=== PATIENT | female | born 1955 ===

== ENCOUNTER 2020-01-23 14:04 | Outpatient (REF) | payer BC, SELFPAY | END 2020-01-23 14:05 | disposition home or self-care (01) | LOC: HO.LAB 14:04 | PROVIDERS: PCP Internal Medicine; Visit Provider Obstetrics & Gynecology | DX: B97.7 Papillomavirus as the cause of diseases classified elsewhere (principal) | CPT/HCPCS: 57454; 88305 ==

== ENCOUNTER → 2020-01-29 11:02 | Outpatient (BNVA) | payer BC, SELFPAY | PROVIDERS: PCP Internal Medicine; Referring Provider Internal Medicine; Visit Provider Obstetrics & Gynecology | DX: Z76.89 Persons encountering health services in other specified circumstances (principal) ==

== ENCOUNTER → 2020-02-14 10:06 | Outpatient (BNVA) | payer BC, SELFPAY | PROVIDERS: Visit Provider Obstetrics & Gynecology | DX: Z76.89 Persons encountering health services in other specified circumstances (principal) ==

== ENCOUNTER 2020-02-16 12:54 | Outpatient (REF) | payer BC, SELFPAY ==
[2020-02-16 13:01] VITALS: BP 157/78; PULSE 71; RESP 16; TEMP 36.4; O2SAT 97
[2020-02-16 13:02] VITALS: BMI 27.4
--- NOTE | 2020-02-16 13:59 | P.HPSUR_ITS ---
Pre-Procedural Eval Section B Chief Complaint: Persistent GREGOR 1 s/p LEEP CONE in 2017 Allergies: Allergies Allergy/AdvReac Type Severity Reaction Status Date / Time lactose [Lactose] Allergy Mild DIARRHEA Unverified 02/14/20 10:15 morphine [Morphine] Allergy Mild HIVES, Unverified 02/14/20 10:15 itching ciprofloxacin [Cipro] Allergy Unknown eye Verified 02/14/20 10:15 swelling, itching Latex Exam Gloves Allergy Unknown itching Uncoded 02/14/20 10:15 NUTS Allergy Unknown itching Uncoded 02/14/20 10:15 Plan Patient has been examined cervix is flushed with vagina. After multiple attempts and careful inspection it was apparent that the visualization is suboptimal so the procedure was aborted. At this point offered the patient either to schedule LEEP cone in the operating room 100 anesthesia versus refer to [facility] for further treatment. Patient decided to be referred to [facility].
== END 2020-02-16 12:55 | disposition home or self-care (01) ==
LOC: HO.MS 12:54
PROVIDERS: PCP Internal Medicine; Visit Provider Obstetrics & Gynecology
PROC: 0UBC7ZZ Excision of Cervix, Via Natural or Artificial Opening (ICD-10-PCS; CPT 57522; principal; 2020-02-16 13:00)
DX: N87.0 Mild cervical dysplasia (principal); F32.9 Major depressive disorder, single episode, unspecified; Z85.3 Personal history of malignant neoplasm of breast; E78.5 Hyperlipidemia, unspecified; Z91.040 Latex allergy status; Z88.8 Allergy status to other drugs, medicaments and biological substances; Z88.1 Allergy status to other antibiotic agents
CPT/HCPCS: 57522

== ENCOUNTER 2020-03-07 10:43 | Outpatient (REF) | payer BC, SELFPAY | END 2020-03-07 10:44 | disposition home or self-care (01) | LOC: HO.LAB 10:43 | PROVIDERS: PCP Internal Medicine; Visit Provider Internal Medicine | DX: Z20.828 Contact with and (suspected) exposure to other viral communicable diseases (principal) | CPT/HCPCS: C9803; U0003 ==

== ENCOUNTER 2020-04-17 11:45 | Outpatient (REF) | payer BC, SELFPAY ==
--- NOTE | 2020-04-17 11:57 | XR_ITS ---
EXAMINATION: XR ELBOW, RIGHT CLINICAL INFORMATION: Pain COMPARISON: None TECHNIQUE: AP, lateral, and oblique views of the right elbow. FINDINGS: The bones and soft tissues are normal. No fracture or joint effusion. Alignment is anatomic. Joint spaces are maintained. XR/XR elbow RT min 3V IMPRESSION: Normal right elbow.
[2020-04-17 14:17] LABS: Hematocrit 41.9 % (37-47); Hemoglobin 13.6 g/dl (12.0-16.0); Mean Corpuscular HGB Conc 32.5 g/dl (31.0-35.0); Mean Corpuscular Hemoglobin 27.3 pg (27.0-33.0); Mean Platelet Volume 10.5 fL (9.4-12.3); Platelet Count 260 X10*3/uL (160-400); Red Blood Count 4.99 X10*6/uL (4.20-5.50); Red Cell Distribution Width 12.8 % (11.0-16.0); White Blood Count 6.7 X10*3/uL (4.8-10.8)
[2020-04-17 14:48] LABS: Anion Gap 14 (12-20); Blood Urea Nitrogen 11 mg/dL (9-16); C Reactive Protein 1.07 mg/dL (< or = 0.50); Calcium 9.2 mg/dL (8.4-10.2); Carbon Dioxide 27 mmol/L (22-29); Chloride 103 mmol/L (96-108); Estimated Glomerular Filt Rate > 60; Glucose Random 104 mg/dL (60-115); Potassium 4.3 mmol/l (3.3-5.1); Sodium 140 mmol/L (135-145)
[2020-04-17 14:54] LABS: TSH reflex Free T4 2.84 mIU/mL (0.32-4.0)
== END 2020-04-17 11:46 | disposition home or self-care (01) ==
LOC: HO.HMGCLDS 11:45
PROVIDERS: Absent Provider Internal Medicine; PCP Internal Medicine; Visit Provider Internal Medicine
DX: M25.521 Pain in right elbow (principal); T78.40XA Allergy, unspecified, initial encounter; K13.0 Diseases of lips
CPT/HCPCS: 36415; 73080; 80048; 84443; 85027; 86140

== ENCOUNTER 2020-12-25 14:08 | Outpatient (REF) | payer BC, MEDICARE, SELFPAY ==
[2020-12-25 17:14] LABS: TSH reflex Free T4 4.25 uIU/mL (0.32-4.0)
[2020-12-25 17:50] LABS: Free T4 (Free Thyroxine) 0.94 ng/dL (0.71-1.85)
== END 2020-12-25 14:09 | disposition home or self-care (01) ==
LOC: HO.HMGCLDS 14:08
PROVIDERS: PCP Internal Medicine; Visit Provider Internal Medicine
DX: E03.8 Other specified hypothyroidism (principal)
CPT/HCPCS: 36415; 84439; 84443

== ENCOUNTER 2022-03-27 09:42 | Outpatient (REF) | payer BC, MEDICARE, SELFPAY ==
[2022-03-27 11:17] LABS: MANUAL DIFF FLAG NO
[2022-03-27 11:25] LABS: Basophils Absolute Auto 0.2 X10*3/uL (0.0-0.2); Eosinophils Absolute Auto 0.3 X10*3/uL (0.0-0.4); Eosinophils Percent Auto 4.6 % (0-4); Hematocrit 43.3 % (37.0-47.0); Imm Gran Abs Auto 0.03 X10*3/uL (0.00-0.03); Imm Gran Pct Auto 0.4 % (0.0-0.4); Lymphocytes Absolute Auto 1.9 X10*3/uL (1.2-4.9); Lymphocytes Percent Auto 25.9 % (20-40); Mean Corpuscular HGB Conc 32.3 g/dl (31.0-35.0); Mean Corpuscular Hemoglobin 26.5 pg (27.0-33.0); Mean Platelet Volume 10.3 fL (9.4-12.3); Monocytes Absolute Auto 0.5 X10*3/uL (0.1-1.2); Monocytes Percent Auto 6.7 % (2-11); Neutrophils Absolute Auto 4.4 x10*3/uL (2.0-8.3); Neutrophils Percent Auto 60.4 % (45-73); Platelet Count 275 X10*3/uL (160-400); Red Blood Count 5.28 X10*6/uL (4.20-5.50); Red Cell Distribution Width 12.5 % (11.0-16.0); White Blood Count 7.3 X10*3/uL (4.8-10.8)
[2022-03-27 12:18] LABS: Alanine Aminotransferase 16 U/L (0-31); Albumin Level 4.3 g/dL (3.5-5.0); Alkaline Phosphatase 86 U/L (39-117); Anion Gap 11 (12-20); Aspartate Amino Transferase 18 U/L (5-31); Bilirubin Total 0.7 mg/dL (0.0-1.0); Blood Urea Nitrogen 10 mg/dL (9-16); Calcium 9.6 mg/dL (8.4-10.2); Carbon Dioxide 31 mmol/L (22-29); Chloride 105 mmol/L (96-108); Cholesterol 236 mg/dL; Estimated Glomerular Filt Rate > 60; Glucose Fasting 98 mg/dL (60-99); HDL Cholesterol 46 mg/dL; LDL Cholesterol Calculated 165 mg/dl; Potassium 4.1 mmol/L (3.3-5.1); Sodium 143 mmol/L (135-145); Total Protein 7.2 g/dL (6.5-8.0); Triglycerides 128 mg/dL
[2022-03-27 12:39] LABS: TSH reflex Free T4 3.75 uIU/mL (0.32-4.0)
== END 2022-03-27 09:43 | disposition home or self-care (01) ==
LOC: HO.HMGCLDS 09:42
PROVIDERS: PCP Internal Medicine; Visit Provider Internal Medicine
DX: Z00.01 Encounter for general adult medical examination with abnormal findings (principal); F43.9 Reaction to severe stress, unspecified; E03.8 Other specified hypothyroidism
CPT/HCPCS: 36415; 80053; 80061; 84443; 85025

== ENCOUNTER 2022-05-13 10:25 | Emergency (ER) | payer BC, MEDICARE, SELFPAY ==
--- NOTE | 2022-05-13 10:29 | ECG_ITS ---
Test Reason : cp Blood Pressure : / mmHG Vent. Rate : 076 BPM Atrial Rate : 076 BPM P-R Int : 162 ms QRS Dur : 076 ms QT Int : 380 ms P-R-T Axes : 047 -03 023 degrees QTc Int : 427 ms Normal sinus rhythm Minimal voltage criteria for LVH, may be normal variant ( R in aVL ) Borderline ECG When compared with ECG of 13-FEB-2005 14:53, No significant change was found Referred By: Generic ED Physician Electronically Signed By:Alfred Brian
[2022-05-13 10:38] VITALS: BP 141/78; PULSE 72; RESP 18; TEMP 36.8; O2SAT 99; BMI 27.4
[2022-05-13 10:54] LABS: MANUAL DIFF FLAG NO
[2022-05-13 10:59] LABS: Basophils Absolute Auto 0.1 X10*3/uL (0.0-0.2); Basophils Percent Auto 1.8 % (0-2); Eosinophils Absolute Auto 0.2 X10*3/uL (0.0-0.4); Eosinophils Percent Auto 2.4 % (0-4); Hemoglobin 13.9 g/dl (12.0-16.0); Imm Gran Abs Auto 0.03 X10*3/uL (0.00-0.03); Imm Gran Pct Auto 0.4 % (0.0-0.4); Lymphocytes Absolute Auto 1.7 X10*3/uL (1.2-4.9); Mean Corpuscular HGB Conc 33.1 g/dl (31.0-35.0); Mean Corpuscular Hemoglobin 27.1 pg (27.0-33.0); Mean Corpuscular Volume 81.9 fL (80.0-98.0); Mean Platelet Volume 9.8 fL (9.4-12.3); Monocytes Absolute Auto 0.5 X10*3/uL (0.1-1.2); Monocytes Percent Auto 6.8 % (2-11); Neutrophils Absolute Auto 4.6 x10*3/uL (2.0-8.3); Neutrophils Percent Auto 64.6 % (45-73); Platelet Count 272 X10*3/uL (160-400); Red Blood Count 5.13 X10*6/uL (4.20-5.50); Red Cell Distribution Width 12.5 % (11.0-16.0); White Blood Count 7.2 X10*3/uL (4.8-10.8)
[2022-05-13 11:12] LABS: Anion Gap 14 (12-20); Blood Urea Nitrogen 10 mg/dL (9-16); Calcium 9.5 mg/dL (8.4-10.2); Carbon Dioxide 27 mmol/L (22-29); Chloride 104 mmol/L (96-108); Creatinine Clr Calc Pharmacy 63.3; Estimated Glomerular Filt Rate > 60; Glucose Random 108 mg/dL (60-115); Potassium 4.3 mmol/L (3.3-5.1); Sodium 141 mmol/L (135-145)
[2022-05-13 11:15] LABS: Troponin-I High Sensitivity < 3.5 ng/L (<3.5-17.0)
--- NOTE | 2022-05-13 12:38 | ED_ITS ---
HPI - Chest Pain General Chief Complaint: Chest Pain Stated Complaint: chest pain , L side body pain Time Seen by Provider: 05/13/22 12:37 Source: patient Mode of arrival: ambulatory Limitations: no limitations History of Present Illness HPI narrative: 67 yo female pmHx HLD, hypothyroidism, depression c/o left sided chest pain and LUE paresthesia since last night. Chest pain is intermittent, non-radiating, not reproducible with palpation, and sharp/shooting in nature. Upper scapula pain is also same quality as chest pain. Pt reports shooting numbness/tingling from medial epicondyle of the elbow traveling down to the second, third, and fourth finger of the left hand. 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 She denies other trauma directly to the area, prior occurrence, or associated rashes. No associated SOB, nausea, diaphoresis. Currently has no chest pain and reports pain is in the lower portion of the left arm, shooting in nature. MD complaint: chest pain and other (elbow/wrist/hand paresthesia, left subscapular pain) Onset (ago): day(s) (1) Timing of current episode: episodic Prior episodes: No Onset: during rest Pain location: left chest and other (left medial epicondyle) Pain radiation: left shoulder and other (left wrist) Quality: sharp and shooting Relieving factors: nothing Exacerbating factors: nothing Treatment prior to arrival: none Risk Factors Coronary artery disease risk factors: hyperlipidemia Related Data Previous Rx's Medication Instructions Recorded naproxen sodium 550 mg tablet 550 mg PO Q12H PRN pain 30 days 10/22/21 #60 tabs levothyroxine 50 mcg tablet 50 mcg PO DAILY 90 days #90 tabs 04/22/22 cyclobenzaprine 10 mg tablet 10 mg PO TID PRN muscle spasm #10 05/13/22 tabs prednisone 20 mg tablet 40 mg PO DAILY #10 tabs 05/13/22 Allergies Allergy/AdvReac Type Severity Reaction Status Date / Time lactose [Lactose] Allergy Mild DIARRHEA Verified 05/13/22 10:43 morphine [Morphine] Allergy Mild HIVES, Verified 05/13/22 10:43 itching ciprofloxacin [Cipro] Allergy Unknown eye Verified 05/13/22 10:43 swelling, itching Latex Exam Gloves Allergy Unknown itching Uncoded 10/22/21 14:30 NUTS Allergy Unknown itching Uncoded 10/22/21 14:30 Review of Systems Review of Systems: Yes all other systems are reviewed and are negative REPLACED BY [facility] Past Medical History Medical History Depression History of breast cancer Hyperlipemia Hypothyroidism Surgical History History of appendectomy Family History Family History Other Mental health disorder Substance use disorder Social History Social History Housing: Condominium Alcohol intake: never Patient Tobacco Use Status: Never used Tobacco e-Cigarette/Vaping Use: Never Used Advance Directives: Yes Advance Directives Information Provided: No Advance Directives on File: No Current occupational status: employed Sexual orientation: Straight/Heterosexual Gender identity: Female Cognitive needs: No Hearing needs: No Vision needs: No Physical Exam Vital Signs: Vital Signs: Last Vital Signs Temp 98.2 F 05/13/22 10:38 Pulse 72 05/13/22 10:38 Resp 18 05/13/22 10:38 BP 141/78 H 05/13/22 10:38 Pulse Ox 99 05/13/22 10:38 O2 Del Method 05/13/22 10:38 BMI result Body Mass Index 27.4 Appearance: Alert. Oriented X3. No acute distress. Eyes: Pupils equal, round and reactive to light. ENT: Pharynx normal. Neck: Normal inspection. Neck supple. CVS: Normal heart rate and rhythm. Pulses normal. No anterior chest wall tenderness. Respiratory: No respiratory distress. Breath sounds normal. Abdomen: Soft and nontender. +BS x4 Skin: Skin warm and dry. Normal skin color. Normal skin turgor. No rashes. Extremities: No lower extremity edema. Pain to medial epicondyle upon palpation. Full ROM to all extremities. +CMS Neuro: Oriented X 3. No motor deficit. No sensory deficit. Course Course Course Narrative: 67 yo female here with chest, back and LUE pains. Exam and clinical presentation are not consistent with ACS. EKG without ischemic changes. Labs pending. Chest pain free at this time. Reevaluation(s) Reevaluation #1: - Labs unremarkable. -Discussed negative troponin and likelihood of musculoskeletal cause. Pt agreeable to discharge and f/u with orthopedics as well as prescription for short course of steroids and muscle relaxant. Time: 13:00 Medical Decision Making Medical Decision Making [facility] Narrative: 67 yo female pmHx HLD, hypothyroidism, depression c/o left sided chest pain and LUE paresthesia since last night. Based on patient presentation symptomatology, differential diagnosis is most likely muscle strain with cubital tunnel syndrome. Other differential diagnoses include myocardial infarction, cervical radiculopathy, and shingles. Myocardial infarction r/o with negative troponin. Cervical radiculopathy unlikely secondary to point tenderness to medial aspect of epicondyle with radiation to second, third, and fourth digit in combination with lack of shoulder involvement. Shingles also remains lower on the different ial d/t lack of rash involvement and multiple dermatomes affected. Differential Diagnosis Differential Diagnoses: The differential diagnosis associated with the presentation includes Differential diagnosis is most likely muscle strain with cubital tunnel syndrome. Other differential diagnoses include myocardial infarction, cervical radiculopathy, and shingles. Lab Data [facility] Lab Attestation statement: I reviewed the patient's lab results. Troponin negative (<3.5), CBC and BMP unremarkable. No metabolic derangements appreciated. 05/13/22 10:49 05/13/22 10:49 Labs: Lab Results 05/13/22 05/13/22 05/13/22 Range/Units 10:49 10:49 10:49 WBC 7.2 (4.8-10.8) X10*3/uL RBC 5.13 (4.20-5.50) X10*6/uL Hgb 13.9 (12.0-16.0) g/dl Hct 42.0 (37.0-47.0) % MCV 81.9 (80.0-98.0) fL MCH 27.1 (27.0-33.0) pg MCHC 33.1 (31.0-35.0) g/dl RDW 12.5 (11.0-16.0) % Plt Count 272 (160-400) X10*3/uL MPV 9.8 (9.4-12.3) fL Immature Gran % (Auto) 0.4 (0.0-0.4) % Neut % (Auto) 64.6 (45-73) % Lymph % (Auto) 24.0 (20-40) % [place] % (Auto) 6.8 (2-11) % Eos % (Auto) 2.4 (0-4) % Baso % (Auto) 1.8 (0-2) % Lymph # (Auto) 1.7 (1.2-4.9) X10*3/uL [place] # (Auto) 0.5 (0.1-1.2) X10*3/uL Eos # (Auto) 0.2 (0.0-0.4) X10*3/uL Baso # (Auto) 0.1 (0.0-0.2) X10*3/uL Abs Immat Gran (auto) 0.03 (0.00-0.03) X10*3/uL Absolute Neuts (auto) 4.6 (2.0-8.3) x10*3/uL Absolute Nucleated RBC 0.000 (0.0-0.012) X10*3/uL Nucleated RBC % (auto) 0.0 (0.0-0.2) /100WBC Sodium 141 (135-145) mmol/L Potassium 4.3 (3.3-5.1) mmol/L Chloride 104 (96-108) mmol/L Carbon Dioxide 27 (22-29) mmol/L Anion Gap 14 (12-20) BUN 10 (9-16) mg/dL Creatinine 0.83 (0.5-1.4) mg/dL Estim Creat Clear Calc 63.3 Estimated GFR > 60 Random Glucose 108 (60-115) mg/dL Calcium 9.5 (8.4-10.2) mg/dL Troponin I High Sens < 3.5 (<3.5-17.0) ng/L Independent Interpretation I performed an independent interpretation of an: EKG Interpretation: Normal EKG NSR with rate of 76 [place] normal at 162 ms QRS normal at 76 ms QTc normal at 427 ms External Record Review External record reviewed: Office record and Outpatient record Prescription Management I considered prescription management with: Pain Medication Critical Care Time Critical Care Time Critical Care Time: No Discharge Plan Discharge Clinical Impression: Atypical chest pain, Cubital tunnel syndrome Patient Disposition: Home, Self-Care Instructions: Cubital Tunnel Syndrome (ED), Noncardiac Chest Pain (ED) Additional Instructions: Labwork today was reassuring that you are not having a heart attack. It is likely that your chest and back pain are from a pulled muscle from lifting at work. The numbness and tingling you are feeling is likely due to the repetitive motion at your job. You are being given a referral to follow up with orthopedics and should also follow up with your Primary care provider. I have prescribed a short course of steroids and a muscle relaxer. Please take as prescribed. If you start to experience chest pain that feels different or worse, shortness of breath, or other concerning symptoms please return. Prescriptions: New cyclobenzaprine 10 mg tablet 10 mg PO TID PRN (Reason: muscle spasm) Qty: 10 0RF prednisone 20 mg tablet 40 mg PO DAILY Qty: 10 0RF No Action naproxen sodium 550 mg tablet 550 mg PO Q12H PRN (Reason: pain) 30 Days Qty: 60 0RF levothyroxine 50 mcg tablet 50 mcg PO DAILY 90 Days Qty: 90 1RF Referrals: [facility] [Provider Group] Dexter Garcia MD [Primary Care Provider] - Stand Alone Forms: Work/School Release
== END 2022-05-13 14:16 | disposition home or self-care (01) ==
PROVIDERS: Emergency Provider Student in an Organized Health Care Education/Training Program; PCP Internal Medicine
DX: R07.89 Other chest pain (principal); G56.22 Lesion of ulnar nerve, left upper limb; E78.5 Hyperlipidemia, unspecified; Z79.899 Other long term (current) drug therapy
CPT/HCPCS: 36415; 80048; 84484; 85025; 93005; 99283

== ENCOUNTER 2022-05-27 12:23 | Outpatient (REF) | payer BC, MEDICARE, SELFPAY ==
--- NOTE | ~2022-05-27 | XR_ITS ---
EXAMINATION: XR HAND, LEFT CLINICAL INFORMATION: Pain. COMPARISON: None. TECHNIQUE: PA, lateral, and oblique views of the left hand. FINDINGS: There is loss of PIP and DIP joint space with periarticular spurring DIP joints 4th and 5th digits. No bony erosive changes. No loose bodies. No joint effusion. The soft tissues are normal. XR/XR hand LT min 3V IMPRESSION: Degenerative arthritic changes DIP joints. No visible acute fracture or dislocation seen.
== END 2022-05-27 12:24 | disposition home or self-care (01) ==
LOC: HO.HOSX 12:23
PROVIDERS: Visit Provider Physician Assistant
DX: M65.342 Trigger finger, left ring finger (principal)
CPT/HCPCS: 20550; 73130; 99202; J1100

== ENCOUNTER 2022-10-20 12:12 | Outpatient (AMB) | payer BC, MEDICARE, SELFPAY ==
[2022-10-20 12:18] VITALS: BP 148/80; PULSE 84; O2SAT 98; BMI 27.7
--- NOTE | 2022-10-20 12:18 | A.OFFPC_ITS ---
Vital Signs 10/20/22 12:18 Height 5 ft 4 in Weight 161 lb 4 oz BMI 27.7 BP 148/80 H Blood Pressure Location Rt brachial Position Sitting Pulse 84 Pulse Source Pulse Oximeter Pulse Oximetry (%) 98 Oxygen Delivery Method Room Air Intake Visit Reasons: PE Allergies lactose [Lactose] Allergy (Mild, Verified 10/20/22 12:19) DIARRHEA morphine [Morphine] Allergy (Mild, Verified 10/20/22 12:19) HIVES, itching ciprofloxacin [Cipro] Allergy (Unknown, Verified 10/20/22 12:19) eye swelling, itching Latex Exam Gloves Allergy (Unknown, Uncoded 05/27/22 13:50) itching NUTS Allergy (Unknown, Uncoded 05/27/22 13:50) itching Medication List - Last Reconciled 10/20/22 by Dexter Garcia MD levothyroxine 50 mcg PO DAILY 90 days Tobacco use date assessed: 10/20/22 Fall risk assessment: No Falls in past year Last assessed Fall Risk: 10/20/22 Dental Screening Dental Screen Date: 10/20/22 Did you have a dental visit in the last 12 months?: No Did you have a dental problem in the last 6 months where you did not have access to dental care?: No Was dental information given to patient?: No HPI PE HPI Details 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 She has been having lower back pain left side radiating to left leg for a while. Patient says that she has been telling her work that she cannot lift heavy will sugars but no one is listening. I have provided her letter stating no more lifting more than 30 lb Patient will have x-ray of her lumbar spine, she is also complaining of pain right shoulder she will have x-ray of shoulder as well She has tried naproxen and cyclobenzaprine which did not help her. I have ordered physical therapy for the patient she will return in 6-8 weeks after finishing physical therapy for re-evaluation. This is her physical exam appointment On physical examination her back exam is benign and so is her neuro exam. With the medication patient is taking his levothyroxine 50 mcg she recently had labs reviewed with the patient The pressure is slightly elevated at 148 systolic we will continue to monitor. Her mammogram was April of this year She need a new OBGYN and Colonoscopy we are not sure when it was patient does not remember I have sent a referral to Gastroenterology for that. Her LDL is elevated at 165 patient is declining to take any cholesterol-lowering medications. 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 How often do you have a drink containing alcohol?: Never 3. How often do you have six or more drinks on one occasion?: Never Total Score: 0 Score Reviewed/Action Taken: Yes LADY-7 AMB Questionnaire LADY-7 Date LADY - 7 assessed: 04/22/22 Source: Developed by Drs. Charli Webster, Karla Poole, Ed Quintero and colleagues, with an educational jeni from [employer]. Review of Systems Const Denies chills, Denies fever(s) and Denies headache(s) Eyes Denies blurry vision ENT Denies headache(s), Denies nasal discharge, Denies nasal obstruction, Denies odynophagia and Denies sinus pain Card Denies chest pain at rest and Denies chest pain with activity Resp Denies cough and Denies hemoptysis GI Denies diarrhea, Denies odynophagia, Denies vomiting and Denies hematemesis Reports as per HPI Musc Denies abnormal gait Skin/Breast Reports as per HPI Neuro Denies Neuro-related abnormal movements, Denies Abnormal speech present, Denies abnormal gait, Denies headache(s) and Denies Sensory deficit (Neuro) Psych Denies mood swings and Denies paranoia Endo Reports as per HPI Johan/Lymph Reports as per HPI Aller/Immun Reports as per HPI Physical exam (Primary Care) Vital Signs: Last Vital Signs Pulse 84 10/20/22 12:18 BP 148/80 H 10/20/22 12:18 Pulse Ox 98 10/20/22 12:18 Oxygen Delivery Method Room Air 10/20/22 12:18 BMI result Body Mass Index 27.7 Tobacco/Smoking Status: Tobacco use Status Tobacco use date assessed 10/20/22 10/20/22 12:19 Patient Tobacco Use Status Never used Tobacco 10/20/22 12:19 e-Cigarette/Vaping Use Never Used 10/20/22 12:19 Thrive Assessment: Date of Thrive Assessment Date Thrive assessed 04/22/22 10/20/22 12:19 Const General: cooperative, comfortable and no acute distress Orientation/consciousness: patient oriented x3 HENMT Head: Yes normocephalic and Yes atraumatic Eyes General: appearance normal, both eyes and all related structures Pupils: Equal, round and reactive pupils present EOM: EOMs intact bilaterally Neck Neck: Yes supple and No lymphadenopathy Thyroid: Thyroid normal Lymphatic: no lymphadenopathy noted Chest Breast/axilla palpation: normal palpation of the breasts Resp Effort & Inspection: normal respiratory effort and able to speak in complete sentences Auscultation: clear to auscultation bilaterally Cardio Heart sounds: S1 normal heart sound present and S2 normal heart sound present GI Palpation (GI): Soft to palpation and nontender Auscultation: normal bowel sounds General: Yes no CVA tenderness Back/Spine/Pelvis Back: no CVA tenderness Skin General skin exam: elasticity normal and turgor normal Neuro General: patient oriented x3 and gait normal Cranial nerves: Yes Equal, round and reactive pupils present Speech: No Abnormal speech present Sensory Exam: No Sensory deficit (Neuro) Coordination: tandem gait normal and Romberg test negative Extrem General: Yes normal exam except as noted and No edema Assessment and Plan Assessment & Plan (1) Encounter for general adult medical examination with abnormal findings: Code(s): Z00.01 - Encounter for general adult medical examination with abnormal findings (2) Other specified hypothyroidism: Code(s): E03.8 - Other specified hypothyroidism (3) Lumbar pain with radiation down left leg: Code(s): M54.50 - Low back pain, unspecified; M79.605 - Pain in left leg (4) Shoulder pain, right: Code(s): M25.511 - Pain in right shoulder (5) Colon cancer screening: Code(s): Z12.11 - Encounter for screening for malignant neoplasm of colon (6) Blurring of vision: Code(s): H53.8 - Other visual disturbances Plan 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 She has been having lower back pain left side radiating to left leg for a while. Patient says that she has been telling her work that she cannot lift heavy will sugars but no one is listening. I have provided her letter stating no more lifting more than 30 lb Patient will have x-ray of her lumbar spine, she is also complaining of pain right shoulder she will have x-ray of shoulder as well She has tried naproxen and cyclobenzaprine which did not help her. I have ordered physical therapy for the patient she will return in 6-8 weeks after finishing physical therapy for re-evaluation. This is her physical exam appointment With the medication patient is taking his levothyroxine 50 mcg she recently had labs reviewed with the patient The pressure is slightly elevated at 148 systolic we will continue to monitor. Her mammogram was April of this year She need a new OBGYN and Colonoscopy we are not sure when it was patient does not remember I have sent a referral to Gastroenterology for that. Her LDL is elevated at 165 patient is declining to take any cholesterol-lowering medications. 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
== END 2022-10-20 13:48 | disposition home or self-care (01) ==
PROVIDERS: PCP Internal Medicine; Visit Provider Internal Medicine
DX: Z00.01 Encounter for general adult medical examination with abnormal findings (principal); E03.8 Other specified hypothyroidism; M54.50 Low back pain, unspecified; M79.605 Pain in left leg; M25.511 Pain in right shoulder; Z12.11 Encounter for screening for malignant neoplasm of colon; H53.8 Other visual disturbances
CPT/HCPCS: 99397

== ENCOUNTER 2022-10-20 12:48 | Outpatient (REF) | payer BC, MEDICARE, SELFPAY ==
--- NOTE | ~2022-10-20 | XR_ITS ---
EXAMINATION: XR LUMBAR SPINE XR SHOULDER, RIGHT CLINICAL INDICATION: Pain in right shoulder and low back pain. COMPARISON: None available. TECHNIQUE: Lumbar spine 3 views. Right shoulder 4 views. FINDINGS: RIGHT SHOULDER: There is mild reduction of glenohumeral and AC joint space with inferior acromion spurring. No acute fracture, lytic or sclerotic process seen. No soft tissue calcification. LUMBAR SPINE: There is maintained lumbar lordosis. There is loss of L5-S1 disc height. The rest of the disc heights are maintained. The vertebral heights and alignment is normal. There is endplate spondylosis L5-S1 and L4-L5 disc level. Moderate bilateral L4-L5 facet joint arthropathy is noted. No visible acute fracture, dislocation or lytic process seen. XR/XR lumbar spine 2-3V IMPRESSION: Mild degenerative changes glenohumeral and AC joint space with a large inferior acromial spur, likely impinging right rotator cuff. Correlate with MRI if clinically indicated. Degenerative disc changes with endplate sclerosis and spondylosis L5-S1 disc level.
--- NOTE | ~2022-10-20 | XR_ITS ---
EXAMINATION: XR LUMBAR SPINE XR SHOULDER, RIGHT CLINICAL INDICATION: Pain in right shoulder and low back pain. COMPARISON: None available. TECHNIQUE: Lumbar spine 3 views. Right shoulder 4 views. FINDINGS: RIGHT SHOULDER: There is mild reduction of glenohumeral and AC joint space with inferior acromion spurring. No acute fracture, lytic or sclerotic process seen. No soft tissue calcification. LUMBAR SPINE: There is maintained lumbar lordosis. There is loss of L5-S1 disc height. The rest of the disc heights are maintained. The vertebral heights and alignment is normal. There is endplate spondylosis L5-S1 and L4-L5 disc level. Moderate bilateral L4-L5 facet joint arthropathy is noted. No visible acute fracture, dislocation or lytic process seen. XR/XR shoulder RT min 2V IMPRESSION: Mild degenerative changes glenohumeral and AC joint space with a large inferior acromial spur, likely impinging right rotator cuff. Correlate with MRI if clinically indicated. Degenerative disc changes with endplate sclerosis and spondylosis L5-S1 disc level.
== END 2022-10-20 12:49 | disposition home or self-care (01) ==
LOC: HO.HMGCX 12:48
PROVIDERS: PCP Internal Medicine; Visit Provider Internal Medicine
DX: M54.50 Low back pain, unspecified (principal); M79.605 Pain in left leg; M25.511 Pain in right shoulder
CPT/HCPCS: 72100; 73030

== ENCOUNTER 2022-10-27 15:23 | Outpatient (AMB) | payer BC, MEDICARE, SELFPAY ==
[2022-10-27 15:21] VITALS: BP 120/70; PULSE 93; O2SAT 97; BMI 27.8
--- NOTE | 2022-10-27 15:21 | MHC.PC.OV ---
Vital Signs 10/27/22 15:21 Height 5 ft 4 in Weight 162 lb BMI 27.8 BP 120/70 Blood Pressure Location Lt brachial Position Sitting Pulse 93 Pulse Source Pulse Oximeter Pulse Oximetry (%) 97 Oxygen Delivery Method Room Air Intake Visit Reasons: Follow UP X-ray Results ~ Work Letter Allergies lactose [Lactose] Allergy (Mild, Verified 10/27/22 15:21) DIARRHEA morphine [Morphine] Allergy (Mild, Verified 10/27/22 15:21) HIVES, itching ciprofloxacin [Cipro] Allergy (Unknown, Verified 10/27/22 15:21) eye swelling, itching Latex Exam Gloves Allergy (Unknown, Uncoded 05/27/22 13:50) itching NUTS Allergy (Unknown, Uncoded 05/27/22 13:50) itching Medication List - Last Reconciled 10/27/22 by Dexter Garcia MD levothyroxine 50 mcg PO DAILY 90 days Tobacco use date assessed: 10/27/22 Fall risk assessment: No Falls in past year Last assessed Fall Risk: 10/27/22 Dental Screening Dental Screen Date: 10/27/22 Did you have a dental visit in the last 12 months?: Yes Did you have a dental problem in the last 6 months where you did not have access to dental care?: No Was dental information given to patient?: No HPI Follow UP X-ray Results ~ Work Letter HPI Details Patient came in today to have a follow-up after having x-rays she was complaining of pain in her shoulder right side Her x-ray shows degenerated changes glenohumeral and AC joint space with large inferior acromial spur likely impinging right rotator cuff I have placed a referral for her to be evaluated by Orthopedic She continued to have lower lumbar pain radiating to left leg with paresthesias going all the way down to her foot at time patient says that her leg feels heavy X-ray of lumbar spine show spondylosis L5-S1 disc level. I have ordered MRI of lumbar spine to further evaluate Meanwhile letter given to patient stating no pulling pushing or working with wheelchairs until cleared. 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 How often do you have a drink containing alcohol?: Never 3. How often do you have six or more drinks on one occasion?: Never Total Score: 0 Score Reviewed/Action Taken: Yes LADY-7 AMB Questionnaire LADY-7 Date LADY - 7 assessed: 04/22/22 Source: Developed by Drs. Charli Webster, Karla Poole, Ed Quintero and colleagues, with an educational jeni from [employer]. Review of Systems Const Denies chills, Denies fever(s) and Denies headache(s) Eyes Denies blurry vision ENT Denies headache(s), Denies nasal discharge, Denies nasal obstruction, Denies odynophagia and Denies sinus pain Card Denies chest pain at rest and Denies chest pain with activity Resp Denies cough and Denies hemoptysis GI Denies diarrhea, Denies odynophagia, Denies vomiting and Denies hematemesis Reports as per HPI Musc Denies abnormal gait Skin/Breast Reports as per HPI Neuro Denies Neuro-related abnormal movements, Denies Abnormal speech present, Denies abnormal gait, Denies headache(s) and Denies Sensory deficit (Neuro) Psych Denies mood swings and Denies paranoia Endo Reports as per HPI Johan/Lymph Reports as per HPI Aller/Immun Reports as per HPI Physical exam (Primary Care) Vital Signs: Last Vital Signs Pulse 93 10/27/22 15:21 BP 120/70 10/27/22 15:21 Pulse Ox 97 10/27/22 15:21 Oxygen Delivery Method Room Air 10/27/22 15:21 BMI result Body Mass Index 27.8 Tobacco/Smoking Status: Tobacco use Status Tobacco use date assessed 10/27/22 10/27/22 15:21 Patient Tobacco Use Status Never used Tobacco 10/27/22 15:21 e-Cigarette/Vaping Use Never Used 10/27/22 15:21 Thrive Assessment: Date of Thrive Assessment Date Thrive assessed 04/22/22 10/27/22 15:21 Const General: cooperative, comfortable and no acute distress Orientation/consciousness: patient oriented x3 HENMT Head: Yes normocephalic Eyes General: appearance normal, both eyes and all related structures Neck Neck: Yes supple Resp Effort & Inspection: normal respiratory effort, no cough and no stridor Cardio Rhythm: regular rhythm Heart sounds: S1 normal heart sound present and S2 normal heart sound present Skin General skin exam: turgor normal Neuro Other: Straight leg positive left side General: patient oriented x3, tone normal and moves all extremities Speech: No Abnormal speech present Sensory Exam: No Sensory deficit (Neuro) Extrem Right lower extremity: no edema Left lower extremity: no edema Assessment and Plan Assessment & Plan (1) Lumbar pain with radiation down left leg: Code(s): M54.50 - Low back pain, unspecified; M79.605 - Pain in left leg (2) Paresthesia of left leg: Code(s): R20.2 - Paresthesia of skin Plan Patient came in today to have a follow-up after having x-rays she was complaining of pain in her shoulder right side Her x-ray shows degenerated changes glenohumeral and AC joint space with large inferior acromial spur likely impinging right rotator cuff I have placed a referral for her to be evaluated by Orthopedic She continued to have lower lumbar pain radiating to left leg with paresthesias going all the way down to her foot at time patient says that her leg feels heavy X-ray of lumbar spine show spondylosis L5-S1 disc level. I have ordered MRI of lumbar spine to further evaluate Meanwhile letter given to patient stating no pulling pushing or working with wheelchairs until cleared. Orders: Orders MR lumbar spine wo con Today M54.50 - Low back pain, unspecified, M79.605 - Pain in left leg, R20.2 - Paresthesia of skin Coding Level of Care Code Est Pt Level 4 (85184) Diagnoses Lumbar pain with radiation down left leg M54.50; M79.605 Paresthesia of left leg R20.2
== END 2022-10-27 15:56 | disposition home or self-care (01) ==
PROVIDERS: PCP Internal Medicine; Visit Provider Internal Medicine
DX: M54.50 Low back pain, unspecified (principal); M79.605 Pain in left leg; R20.2 Paresthesia of skin
CPT/HCPCS: 99214

== ENCOUNTER 2022-12-16 14:51 | Outpatient (AMB) | payer BC, MEDICARE, SELFPAY ==
--- NOTE | 2022-12-16 15:09 | A.OFFVIS_ITS ---
Intake Vital Signs 12/16/22 15:11 Height 5 ft 4 in Weight 158 lb BMI 27.1 BP 137/79 Blood Pressure Location Lt brachial Position Sitting Pulse 84 Intake Visit Reasons: colonoscopy screening Intake Note: Patient new consult for pre colonoscopy Patient cc: constipation on ad off. Denies any other GI issues. Panelbeater Required: No Accompanied by: Self / Same As Patient Allergies lactose [Lactose] Allergy (Mild, Verified 12/16/22 15:09) DIARRHEA morphine [Morphine] Allergy (Mild, Verified 12/16/22 15:09) HIVES, itching ciprofloxacin [Cipro] Allergy (Unknown, Verified 12/16/22 15:09) eye swelling, itching Latex Exam Gloves Allergy (Unknown, Uncoded 05/27/22 13:50) itching NUTS Allergy (Unknown, Uncoded 05/27/22 13:50) itching HPI colonoscopy screening HPI Details 67 year old? female with past medical hi story of hypothyroidism, status post breast CA, arthritis is here today for pre colonoscopy screening.? Last colonoscopy was in 2015 and was normal. Patient has family history of polyps. No colorectal cancer. Patient was sent to us by her PCP.? Patient denies any gastrointestinal symptoms in the past or at present.? Occasional constipation, however patient reports that that depends on what she eats. The patient usually moves her bowels without any issues. Patient reports occasional left-sided chest pain, however patient reports that she was worked up for CAD and was told it might be her anxiety. 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 Patient reports that the pain is reproducible. Patient denies SOB with or without exertion, chest tightness, edema. Denies history of difficulty with sedation or anesthesia in the past.? Negative for history of sleep apnea.? Denies any history of cardiac, renal, pulmonary, or hepatic disease.?? No history of infectious? diseases like hepatitis A, B, C, HIV or tuberculosis.? Patient is not on any anticoagulation therapy. 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 Sexual orientation: Straight/Heterosexual Gender identity: Female Cognitive needs: No Hearing needs: No Vision needs: No Review of Systems Const Denies weight gain and Denies weight loss ENT Reports no additional complaints, Denies dysphagia and Denies odynophagia Card Reports no additional complaints Resp Reports no additional complaints GI Denies abdominal pain, Denies belching, Denies melena, Denies bloating, Reports constipation, Denies dysphagia, Denies excessive flatus, Denies dyspepsia, Denies heartburn, Denies diarrhea, Denies loose stools, Denies nausea, Denies odynophagia and Denies vomiting Musc Reports no additional complaints Neuro Reports no additional complaints Psych Reports no additional complaints Endo Reports no additional complaints Physical Exam Vital Signs: Last Vital Signs Pulse 84 12/16/22 15:11 BP 137/79 12/16/22 15:11 BMI result Body Mass Index 27.1 Const General: healthy appearing, no acute distress and well developed Nutritional Appearance: well nourished Orientation/consciousness: patient oriented x3 HEENT Head: Yes normal to inspection, Yes normocephalic and Yes atraumatic Face and sinus: Yes normal facial exam Mouth: Normal oral and palatal mucosa present Throat: Yes posterior oropharynx normal, Yes tonsils normal and Yes uvula midline Eyes General: appearance normal, both eyes and all related structures Neck Neck: Yes normal visual inspection, Yes full ROM and Yes trachea midline Thyroid: Thyroid normal Resp Effort & Inspection: normal respiratory effort, able to speak in complete sentences, no tracheal deviation and symmetric chest movement Auscultation: clear to auscultation bilaterally Cardio Rate: regular rate Heart sounds: S1 normal heart sound present and S2 normal heart sound present GI Inspection: Yes normal to inspection and No distended Palpation (GI): Soft to palpation, not firm, nontender and No hepatosplenomegaly present Auscultation: normal bowel sounds General: Yes no CVA tenderness Back/Spine/Pelvis Back: no CVA tenderness Skin General skin exam: elasticity normal, turgor normal and dry skin Neuro General: patient oriented x3 Psych Appearance: grossly normal Mental Status: mental status grossly normal Speech and movement: Normal speech and movement present Assessment & Plan Assessment & Plan (1) Colon cancer screening: Code(s): Z12.11 - Encounter for screening for malignant neoplasm of colon Plan: Patient denies any GI, cardiac or respiratory symptoms.? Denies any issues with anesthesia in the past.? Denies any history of sleep apnea.? No history infectious diseases in the past or present.? Not on any anticoagulation therapy.? No family or personal history of colon cancer or polyps.? Patient denies melena, hematochezia, unintentional weight loss or ribbon like stools.? Discussed at length the pre-procedure,? prep, diet & medications as well as what to expect prior, during and after the procedure.?? Stressed the importance of good bowel prep. ?Recommended the use of Vaseline or Calmoseptine OTC & baby wipes with bowel movements to promote comfort.? ?Patient verbalizes understanding and agrees to plan of care.? She was given the opportunity to ask questions and all questions answered.? We will see her after the procedure.? Medications: New bisacodyl (Dulcolax (bisacodyl)) take 2 tabs at noon the day before your colonoscopy 10 mg (2 x 5 mg) PO ONCE 1 day 2 tabs 0RF Z12.11 - Encounter for screening for malignant neoplasm of colon polyethylene glycol 3350 (Miralax) As directed by gastroenterology department at [facility] 238 grams PO ONCE 238 grams 0RF Z12.11 - Encounter for screening for malignant neoplasm of colon Coding Level of Care Code New Pt Level 3 (02823) Diagnoses Colon cancer screening Z12.11 Time Spent (min) 30 Comment 30 minutes spent with patient and additional 10 minutes spent reviewing her records
[2022-12-16 15:11] VITALS: BP 137/79; PULSE 84; BMI 27.1
== END 2022-12-16 15:42 | disposition home or self-care (01) ==
PROVIDERS: PCP Internal Medicine; Visit Provider Nurse Practitioner Family
DX: Z12.11 Encounter for screening for malignant neoplasm of colon (principal); Z01.818 Encounter for other preprocedural examination
CPT/HCPCS: S0285

== ENCOUNTER → 2022-12-16 14:51 | Outpatient (BNVA) | payer BC, MEDICARE, SELFPAY | PROVIDERS: PCP Internal Medicine; Visit Provider Nurse Practitioner Family ==

== ENCOUNTER 2022-12-23 11:54 | Outpatient (AMB) | payer BC, MEDICARE, SELFPAY ==
[2022-12-23 11:56] VITALS: BP 122/78; PULSE 69; O2SAT 98; BMI 27.7
--- NOTE | 2022-12-23 11:56 | MHC.PC.OV ---
Vital Signs 12/23/22 11:56 Height 5 ft 4 in Weight 161 lb 4 oz BMI 27.7 BP 122/78 Blood Pressure Location Lt brachial Position Sitting Pulse 69 Pulse Source Pulse Oximeter Pulse Oximetry (%) 98 Oxygen Delivery Method Room Air Intake Visit Reasons: 8 week fu Allergies lactose [Lactose] Allergy (Mild, Verified 12/23/22 11:56) DIARRHEA morphine [Morphine] Allergy (Mild, Verified 12/23/22 11:56) HIVES, itching ciprofloxacin [Cipro] Allergy (Unknown, Verified 12/23/22 11:56) eye swelling, itching Latex Exam Gloves Allergy (Unknown, Uncoded 05/27/22 13:50) itching NUTS Allergy (Unknown, Uncoded 05/27/22 13:50) itching Medication List - Last Reconciled 12/23/22 by Dexter Garcia MD bisacodyl (Dulcolax (bisacodyl)) 10 mg (2 x 5 mg) PO ONCE 1 day levothyroxine 50 mcg PO DAILY 90 days polyethylene glycol 3350 (Miralax) 238 grams PO ONCE Tobacco use date assessed: 12/23/22 Fall risk assessment: No Falls in past year Last assessed Fall Risk: 12/23/22 Dental Screening Dental Screen Date: 12/23/22 Did you have a dental visit in the last 12 months?: Yes Did you have a dental problem in the last 6 months where you did not have access to dental care?: No Was dental information given to patient?: Patient has dentist HPI 8 week fu HPI Details Patient is 67-year-old female who continued to have lower back pain and right shoulder pain Her shoulder x-ray showed degenerated changes glenohumeral and AC joint space with large inferior acromial spur likely impinging right rotator cuff Referral to orthopedic was placed last visit She continued to have lower lumbar pain radiating to left leg with paresthesias going all the way down to her foot at time patient says that her leg feels heavy X-ray of lumbar spine show spondylosis L5-S1 disc level. MRI was ordered which was declined by the insurance company I have placed a referral for her to be evaluated by [employer] specialist Meanwhile letter was given to patient stating no pulling pushing or working with wheelchairs until cleared. She missed EMG nerve conduction appointment in November she has reschedule appointment coming up in December, reminded patient and given her time as well. 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 How often do you have a drink containing alcohol?: Monthly or less 2. How many drinks containing alcohol do you have on a typical day when you are drinking?: 1 or 2 3. How often do you have six or more drinks on one occasion?: Never Total Score: 1 Score Reviewed/Action Taken: Yes LADY-7 AMB Questionnaire LADY-7 Date LADY - 7 assessed: 04/22/22 Source: Developed by Drs. Charli Webster, Karla Poole, Ed Quintero and colleagues, with an educational jeni from [email or web address]. Review of Systems Const Denies chills and Denies fever(s) ENT Denies epistaxis and Denies nasal discharge Card Denies chest pain Resp Denies chest congestion, Denies cough and Denies hemoptysis GI Denies diarrhea and Denies nausea Skin/Breast Denies rash Neuro Reports no additional complaints Psych Reports no additional complaints Endo Reports no additional complaints Physical exam (Primary Care) Vital Signs: Last Vital Signs Pulse 69 12/23/22 11:56 BP 122/78 12/23/22 11:56 Pulse Ox 98 12/23/22 11:56 Oxygen Delivery Method Room Air 12/23/22 11:56 BMI result Body Mass Index 27.7 Tobacco/Smoking Status: Tobacco use Status Tobacco use date assessed 12/23/22 12/23/22 11:57 Patient Tobacco Use Status Never used Tobacco 12/23/22 11:57 e-Cigarette/Vaping Use Never Used 12/23/22 11:57 Thrive Assessment: Date of Thrive Assessment Date Thrive assessed 04/22/22 12/23/22 11:57 Const General: cooperative, comfortable and no acute distress Orientation/consciousness: patient oriented x3 HENMT Head: Yes normocephalic Eyes General: appearance normal, both eyes and all related structures Neck Neck: Yes supple Resp Effort & Inspection: normal respiratory effort, no cough and no stridor Cardio Rhythm: regular rhythm Heart sounds: S1 normal heart sound present and S2 normal heart sound present Skin General skin exam: turgor normal Neuro General: patient oriented x3, tone normal and moves all extremities Extrem Right lower extremity: no edema Left lower extremity: no edema Assessment and Plan Assessment & Plan (1) Lumbar pain with radiation down left leg: Code(s): M54.50 - Low back pain, unspecified; M79.605 - Pain in left leg (2) Paresthesia of left leg: Code(s): R20.2 - Paresthesia of skin Plan Patient is 67-year-old female who continued to have lower back pain and right shoulder pain Her shoulder x-ray showed degenerated changes glenohumeral and AC joint space with large inferior acromial spur likely impinging right rotator cuff Referral to orthopedic was placed last visit She continued to have lower lumbar pain radiating to left leg with paresthesias going all the way down to her foot at time patient says that her leg feels heavy X-ray of lumbar spine show spondylosis L5-S1 disc level. MRI was ordered which was declined by the insurance company I have placed a referral for her to be evaluated by [employer] specialist Meanwhile letter was given to patient stating no pulling pushing or working with wheelchairs until cleared. She missed EMG nerve conduction appointment in November she has reschedule appointment coming up in December, reminded patient and given her time as well. She tells me that her work is giving her heart time, she will talk to and if needed bring [place] paperwork Orders: Referrals Orthopedics Referral M54.50 - Low back pain, unspecified, M79.605 - Pain in left leg Coding Level of Care Code Est Pt Level 3 (77211) Diagnoses Lumbar pain with radiation down left leg M54.50; M79.605 Paresthesia of left leg R20.2
== END 2022-12-23 14:05 | disposition home or self-care (01) ==
PROVIDERS: PCP Internal Medicine; Visit Provider Internal Medicine
DX: M54.50 Low back pain, unspecified (principal); M79.605 Pain in left leg; R20.2 Paresthesia of skin
CPT/HCPCS: 99213

== ENCOUNTER 2022-12-30 15:27 | Outpatient (REF) | payer BC, MEDICARE, SELFPAY ==
--- NOTE | 2022-12-30 15:29 | EMG_ITS ---
Chief complaint: Left-sided back pain radiating to left leg, denies numbness Reason for referral: Evaluate for lumbar radiculopathy Referred by: Dr. Garcia Procedure done: Left left upper extremity NCS/EMG Precautions and/or limitations: None The limb temperature was monitored continuously and remained between 32-36 degrees C during the performance of the NCS. Nerve Conduction Studies Anti Sensory Summary Table ?Stim Site NR Onset (ms) Norm Onset (ms) Peak (ms) Norm Peak (ms) O-P Amp (?V) Norm O-P Amp Site1 Site2 Delta-0 (ms) Dist (cm) Glenn (m/s) Norm Glenn (m/s) Left Sural Anti Sensory (Lat Mall) Calf ? 1.1 2.6 <4.0 15.2 >5.0 Calf Lat Mall 1.1 14.0 127 Motor Summary Table ?Stim Site NR Onset (ms) Norm Onset (ms) O-P Amp (mV) Norm O-P Amp iAmp (mV) Amp (1st) (%) Site1 Site2 Delta-0 (ms) Dist (cm) Glenn (m/s) Norm Glenn (m/s) Left Peroneal Motor (Ext Dig Brev) Ankle ? 3.8 <4.0 5.7 >2.5 6.9 100.0 Ankle Ext Dig Brev 3.8 0.0 B Fib ? 9.5 5.1 6.3 89.5 B Fib Ankle 5.7 30.0 53 >40 Poplt ? 9.8 5.4 6.7 94.7 Poplt B Fib 0.3 4.0 133 >40 Left Tibial Motor (Abd Bennett Brev) Ankle ? 3.4 <5 5.4 >2.5 7.6 100.0 Ankle Abd Bennett Brev 3.4 0.0 Knee ? 10.5 2.6 4.2 48.1 Knee Ankle 7.1 40.0 56 >40 EMG ?Side Muscle Nerve Root Ins Act Fibs Psw Amp Dur Poly Recrt Int Pat Comment Left AbdHallucis MedPlantar S1-2 Nml Nml Nml Nml Nml 0 Nml Complete Left AntTibialis Dp Br Peron L4-5 Nml Nml Nml Nml Nml 0 Nml Complete Left PostTibialis Tibial L5, S1 Nml Nml Nml Nml Nml 0 Nml Complete Left MedGastroc Tibial S1-2 Nml Nml Nml Nml Nml 0 Nml Complete Left VastusMed Femoral L2-4 Nml Nml Nml Nml Nml 0 Nml Complete Paraspinal EMG ?Side Muscle Nerve Root Ins Act Fibs Psw Comment Left Lumbar Upper Rami Nml Nml Nml Left Lumbar Mid Rami Nml Nml Nml Left Lumbar Lower Rami Nml Nml Nml FINDINGS: All motor and sensory nerves tested showed normal latencies, amplitudes and conduction velocities. Concentric needle EMG was performed in selected muscles of the left lower extremity and lumbar paraspinals. Study did not reveal signs of electric abnormalities as shown in the table below. IMPRESSION: 1. This is a normal study. 2. There is no electrodiagnostic evidence for peroneal neuropathy, tibial neuropathy, lumbosacral plexopathy, lumbar radiculopathy, or peripheral neuropathy. Thank you for your kind referral. Mikaela Hardy MD, KRISTY Board Certified, [place] Board [employer] and Rehabilitation (ABPMR) Board Certified, [place] Board of Electrodiagnostic Medicine (ABEM) [place] [id number] [facility]
== END 2022-12-30 15:28 | disposition home or self-care (01) ==
LOC: HO.NEURO 15:27
PROVIDERS: PCP Internal Medicine; Visit Provider Internal Medicine
DX: R20.2 Paresthesia of skin (principal)
CPT/HCPCS: 95886; 95908

== ENCOUNTER → 2022-12-30 15:29 | Outpatient (BNV) | payer BC, MEDICARE, SELFPAY | PROVIDERS: PCP Internal Medicine; Visit Provider Physical Medicine & Rehabilitation | DX: M79.605 Pain in left leg (principal) | CPT/HCPCS: 95886; 95908 ==

== ENCOUNTER 2023-04-28 11:33 | Outpatient (AMB) | payer MEDICARE, SELFPAY ==
--- NOTE | 2023-04-28 11:35 | MHC.PC.OV ---
Vital Signs 04/28/23 11:36 Height 5 ft 4 in Weight 164 lb 4 oz BMI 28.2 BP 142/70 H Blood Pressure Location Lt brachial Position Sitting Pulse 96 Pulse Source Pulse Oximeter Pulse Oximetry (%) 98 Oxygen Delivery Method Room Air Intake Visit Reasons: 6 month fu Allergies lactose [Lactose] Allergy (Mild, Verified 04/28/23 11:36) DIARRHEA morphine [Morphine] Allergy (Mild, Verified 04/28/23 11:36) HIVES, itching ciprofloxacin [Cipro] Allergy (Unknown, Verified 04/28/23 11:36) eye swelling, itching Latex Exam Gloves Allergy (Unknown, Uncoded 05/27/22 13:50) itching NUTS Allergy (Unknown, Uncoded 05/27/22 13:50) itching Medication List - Last Reconciled 04/28/23 by Dexter Garcia MD bisacodyl (Dulcolax (bisacodyl)) 10 mg (2 x 5 mg) PO ONCE 1 day levothyroxine 50 mcg PO DAILY 90 days scopolamine base 1 patch transdermal Q3D PRN Tobacco use date assessed: 04/28/23 Fall risk assessment: No Falls in past year Last assessed Fall Risk: 04/28/23 Dental Screening Dental Screen Date: 04/28/23 Did you have a dental visit in the last 12 months?: Yes Did you have a dental problem in the last 6 months where you did not have access to dental care?: No Was dental information given to patient?: Patient has dentist HPI 6 month fu HPI Details Patient is a 68-year-old female came in today follow-up visit but she is feeling sick today She just returned from cruise, since yesterday patient is having mild sore throat nasal congestion headache and body aches and pains Patient says that she had vaccination for flu and COVID but not RSV Currently she is taking gxym-psp-ugazyoy flu medications I have taken to RSV and COVID test, further management after the report meanwhile patient may continue dqyr-vqe-fmlgvrp symptomatic medication She is taking levothyroxine and is due for labs which I have ordered for her [facility] Medical History (Updated 04/28/23 @ 11:58 by Dexter Garcia MD) Depression Hyperlipemia History of breast cancer Hypothyroidism Surgical History History of hysterectomy History of appendectomy Family History Other Mental health disorder Substance use disorder Social History Housing: Condominium Alcohol intake: never Patient Tobacco Use Status: Never used Tobacco e-Cigarette/Vaping Use: Never Used service: No Current occupational status: employed 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 How often do you have a drink containing alcohol?: Never 3. How often do you have six or more drinks on one occasion?: Never Total Score: 0 Score Reviewed/Action Taken: Yes LADY-7 AMB Questionnaire LADY-7 Date LADY - 7 assessed: 04/22/22 Source: Developed by Drs. Charli Webster, Karla Poole, Ed Quintero and colleagues, with an educational jeni from [employer]. Review of Systems Const Reports as per HPI Eyes Denies change in vision ENT Denies bleeding gums, Denies dental pain, Denies ear discharge and Denies mouth pain Card Denies chest pain at rest, Denies chest pain with activity, Denies syncope and Denies irregular heart rhythm Resp Denies hemoptysis and Denies stridor GI Denies diarrhea and Denies vomiting Musc Denies as per HPI Skin/Breast Denies skin ulcer and Denies sores Neuro Denies syncope Physical exam (Primary Care) Vital Signs: Last Vital Signs Pulse 96 04/28/23 11:36 BP 142/70 H 04/28/23 11:36 Pulse Ox 98 04/28/23 11:36 Oxygen Delivery Method Room Air 04/28/23 11:36 BMI result Body Mass Index 28.2 Tobacco/Smoking Status: Tobacco use Status Tobacco use date assessed 04/28/23 04/28/23 11:38 Patient Tobacco Use Status Never used Tobacco 04/28/23 11:38 e-Cigarette/Vaping Use Never Used 04/28/23 11:38 Thrive Assessment: Date of Thrive Assessment Date Thrive assessed 01/25/23 01/31/24 11:38 Const General: cooperative and comfortable Orientation/consciousness: patient oriented x3 HENMT Other: Mild throat erythema Head: Yes normocephalic and Yes atraumatic Ears: external ears normal General nose exam: Normal external nose present Mouth: Normal oral and palatal mucosa present Eyes Eyelids: Yes eyelids normal Pupils: Equal, round and reactive pupils present EOM: EOMs intact bilaterally Neck Neck: Yes trachea midline and Yes supple Resp Auscultation: clear to auscultation bilaterally Cardio Heart sounds: S1 normal heart sound present and S2 normal heart sound present Skin General skin exam: elasticity normal and turgor normal Neuro General: patient oriented x3 and moves all extremities Cranial nerves: Yes Equal, round and reactive pupils present Gait exam (Neuro): Normal gait present Psych Mental Status: mental status grossly normal Assessment and Plan Assessment & Plan (1) Upper respiratory tract infection: Code(s): J06.9 - Acute upper respiratory infection, unspecified Qualifiers: URI type: unspecified viral URI Qualified Code(s): J06.9 - Acute upper respiratory infection, unspecified (2) Hypothyroidism: Code(s): E03.9 - Hypothyroidism, unspecified Qualifiers: Hypothyroidism type: unspecified Qualified Code(s): E03.9 - Hypothyroidism, unspecified Plan Patient is a 68-year-old female came in today follow-up visit but she is feeling sick today She just returned from cruise, since yesterday patient is having mild sore throat nasal congestion headache and body aches and pains Patient says that she had vaccination for flu and COVID but not RSV Currently she is taking dlnc-aus-wvtjzjo flu medications I have taken to RSV and COVID test, further management after the report meanwhile patient may continue rkxg-nhx-wwifycm symptomatic medication She is taking levothyroxine and is due for labs which I have ordered for her Orders: Orders SARS-CoV2/FLU/RSV Today R09.89 - Other specified symptoms and signs involving the circulatory and respiratory systems TSH reflex Free T4 Today E03.9 - Hypothyroidism, unspecified, J06.9 - Acute upper respiratory infection, unspecified Complete Blood Count Auto Diff Today E03.9 - Hypothyroidism, unspecified, J06.9 - Acute upper respiratory infection, unspecified Comprehensive Met. Panel Today E03.9 - Hypothyroidism, unspecified, J06.9 - Acute upper respiratory infection, unspecified Coding Level of Care Code Est Pt Level 3 (20393) Diagnoses Viral upper respiratory tract infection J06.9 URI type: unspecified viral URI Hypothyroidism, unspecified type E03.9 Hypothyroidism type: unspecified
[2023-04-28 11:36] VITALS: BP 142/70; PULSE 96; O2SAT 98; BMI 28.2
== END 2023-04-28 13:00 | disposition home or self-care (01) ==
PROVIDERS: PCP Internal Medicine; Visit Provider Internal Medicine
DX: J06.9 Acute upper respiratory infection, unspecified (principal); E03.9 Hypothyroidism, unspecified
CPT/HCPCS: 99213

== ENCOUNTER 2023-04-28 13:51 | Outpatient (REF) | payer MEDICARE, SELFPAY ==
[2023-04-28 14:37] LABS: Influenza A PCR NEGATIVE (Negative); Influenza B PCR NEGATIVE (Negative); Resp Syncy Virus RNA Qual PCR NEGATIVE (Negative); SARS COV2 PCR INHOUSE POSITIVE (Negative)
== END 2023-04-28 13:52 | disposition home or self-care (01) ==
LOC: HO.HMGCLNP 13:51
PROVIDERS: Visit Provider Internal Medicine
DX: R09.89 Other specified symptoms and signs involving the circulatory and respiratory systems (principal); J06.9 Acute upper respiratory infection, unspecified; E03.9 Hypothyroidism, unspecified; Z11.52 Encounter for screening for COVID-19
CPT/HCPCS: 0241U

== ENCOUNTER 2023-06-14 10:51 | Outpatient (REF) | payer MEDICARE, SELFPAY ==
[2023-06-14 13:12] LABS: MANUAL DIFF FLAG NO
[2023-06-14 13:40] LABS: Basophils Absolute Auto 0.1 X10*3/uL (0.0-0.2); Basophils Percent Auto 1.7 % (0-2); Eosinophils Absolute Auto 0.1 X10*3/uL (0.0-0.4); Hematocrit 42.6 % (37.0-47.0); Hemoglobin 13.9 g/dl (12.0-16.0); Imm Gran Abs Auto 0.02 X10*3/uL (0.00-0.03); Imm Gran Pct Auto 0.3 % (0.0-0.4); Lymphocytes Absolute Auto 1.8 X10*3/uL (1.2-4.9); Mean Corpuscular HGB Conc 32.6 g/dl (31.0-35.0); Mean Corpuscular Hemoglobin 26.9 pg (27.0-33.0); Mean Corpuscular Volume 82.6 fL (80.0-98.0); Mean Platelet Volume 10.4 fL (9.4-12.3); Monocytes Absolute Auto 0.4 X10*3/uL (0.1-1.2); Monocytes Percent Auto 5.7 % (2-11); Neutrophils Absolute Auto 4.6 x10*3/uL (2.0-8.3); Neutrophils Percent Auto 66.3 % (45-73); Platelet Count 282 X10*3/uL (160-400); Red Blood Count 5.16 X10*6/uL (4.20-5.50); Red Cell Distribution Width 12.8 % (11.0-16.0)
[2023-06-14 14:20] LABS: Alanine Aminotransferase 19 U/L (0-31); Albumin Level 4.1 g/dL (3.5-5.0); Alkaline Phosphatase 76 U/L (39-117); Anion Gap 13 (12-20); Aspartate Amino Transferase 19 U/L (5-31); Bilirubin Total 0.6 mg/dL (0.0-1.0); Blood Urea Nitrogen 11 mg/dL (9-16); Calcium 9.8 mg/dL (8.4-10.2); Carbon Dioxide 26 mmol/L (22-29); Chloride 106 mmol/L (96-108); Estimated Glomerular Filt Rate > 60; Glucose Random 98 mg/dL (60-115); Potassium 3.9 mmol/L (3.3-5.1); Sodium 141 mmol/L (135-145); Total Protein 7.2 g/dL (6.5-8.0)
== END 2023-06-14 10:52 | disposition home or self-care (01) ==
LOC: HO.HMGCLDS 10:51
PROVIDERS: PCP Internal Medicine; Visit Provider Internal Medicine
DX: J06.9 Acute upper respiratory infection, unspecified (principal); E03.9 Hypothyroidism, unspecified
CPT/HCPCS: 36415; 80053; 84443; 85025

== ENCOUNTER 2023-10-26 11:55 | Outpatient (AMB) | payer MEDICARE, SELFPAY ==
[2023-10-26 11:56] VITALS: BP 126/72; PULSE 77; O2SAT 97; BMI 27.6
--- NOTE | 2023-10-26 11:56 | MHC.PC.OV ---
Vital Signs 10/26/23 11:56 Height 5 ft 4 in Weight 161 lb 1 oz BMI 27.6 BP 126/72 Blood Pressure Location Lt brachial Position Sitting Pulse 77 Pulse Source Pulse Oximeter Pulse Oximetry (%) 97 Oxygen Delivery Method Room Air Intake Visit Reasons: PE Allergies lactose [Lactose] Allergy (Mild, Verified 10/26/23 11:57) DIARRHEA morphine [Morphine] Allergy (Mild, Verified 10/26/23 11:57) HIVES, itching ciprofloxacin [Cipro] Allergy (Unknown, Verified 10/26/23 11:57) eye swelling, itching Latex Exam Gloves Allergy (Unknown, Uncoded 05/27/22 13:50) itching NUTS Allergy (Unknown, Uncoded 05/27/22 13:50) itching Medication List - Last Reconciled 10/26/23 by Dexter Garcia MD levothyroxine 50 mcg PO DAILY 90 days Tobacco use date assessed: 10/26/23 Fall risk assessment: No Falls in past year Last assessed Fall Risk: 10/26/23 Dental Screening Dental Screen Date: 10/26/23 Did you have a dental visit in the last 12 months?: Yes Did you have a dental problem in the last 6 months where you did not have access to dental care?: No Was dental information given to patient?: Patient has dentist HPI PE HPI Details Patient is 68-year-old female came in today for physical examination Patient says that she has been having left-sided chest pain off and on randomly for past few weeks It last up to 15 minutes at time Non radiating, no diaphoresis associated no nausea no vomiting no association with eating EKG done today shows minimal voltage criteria for LVH no acute findings as before I have sent omeprazole 20 mg to be taken b.i.d. for 1 month We will book telemedicine visit in 3 weeks to see how patient is doing Labs were done May of this year reviewed again Only medication from this office is levothyroxine 50 mcg Due for mammogram, order printed and handed to patient she goes to [facility] Patient had a gastroenterology appointment last year for colonoscopy screening but did not go in for colonoscopy She says that she was in the middle of changing insurance Phone Number provided to call Gastroenterology at both the colonoscopy appointment COUNTS INCLUDE 234 BEDS AT THE [facility] Medical History Depression Hyperlipemia History of breast cancer Hypothyroidism Surgical History History of hysterectomy History of appendectomy Family History Other Mental health disorder Substance use disorder Social History Housing: Condominium Alcohol intake: never Patient Tobacco Use Status: Never used Tobacco e-Cigarette/Vaping Use: Never Used service: No Current occupational status: employed 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 1. Little interest or pleasure in doing things: not at all 2. Feeling down, depressed, or hopeless: not at all 3. Trouble falling or staying asleep, or sleeping too much: not at all 4. Feeling tired or having little energy: not at all 5. Poor appetite or overeating: not at all 6. Feeling bad about yourself - or that you are a failure or have let yourself or your family down: not at all 7. Trouble concentrating on things, such as reading the newspaper or watching television: not at all 8. Moving or speaking so slowly that other people could have noticed. Or the opposite - being so fidgety or restless that you have been moving around a lot more than usual: not at all 9. Thoughts that you would be better off or of hurting yourself in some way: not at all Total score: 0 Depression Screening Interpretation: Negative Depression Screening Done: Yes 24210 - PHQ-9 Billing: Yes Source: Developed by Drs. Charli Webster, Karla Poole, Ed Quintero and colleagues, with an educational jeni from [employer]. Thrive Questionnaire Date Thrive assessed: 10/26/23 I am a: Patient What is your living situation today?: I have a steady place to live Within the past 12 months, did the food you bought not last and you didn't have the money to get more?: I choose not to answer this question Within the past 12 months, did you worry whether your food would run out before you got money to buy more?: I choose not to answer this question Do you have trouble paying for medicines?: I choose not to answer this question Do you have trouble getting transportation to medical appointments?: I choose not to answer this question Do you have trouble paying your heating and electricity bill?: Yes Do you have trouble taking care of your child, family member or friend?: No Do you have trouble with day-to-day activities such as bathing, preparing meals, shopping, managing finances, etc.?: No Are you currently unemployed and looking for a job?: No Are you interested in more education?: I choose not to answer this question Please select the resources that you would like help with: Housing/Longterm Currently or been in a relationship where the following occur: I choose not to answer THRIVE Score: 1 AUDIT C Alcohol Use Questionnaire (AUDIT-C) 1. How often do you have a drink containing alcohol?: 2-4 times a month 2. How many drinks containing alcohol do you have on a typical day when you are drinking?: 1 or 2 3. How often do you have six or more drinks on one occasion?: Never Total Score: 2 Score Reviewed/Action Taken: Yes LADY-7 AMB Questionnaire LADY-7 Date LADY - 7 assessed: 10/26/23 Feeling nervous, anxious, or on edge: 1 = Several days Not being able to stop or control worryin = Several days Worrying too much about different things: 0 = Not at all Trouble relaxin = Several days Being so restless that it is hard to sit still: 0 = Not at all Becoming easily annoyed or irritable: 1 = Several days Feeling afraid as if something awful might happen: 0 = Not at all Total LADY-7 score (0-4 normal; 5-9 mild; 10-14 moderate; 15-21 severe): 4 Source: Developed by Drs. Charli Webster, Karla Poole, Ed Quintero and colleagues, with an educational jeni from [employer]. LADY-7 Assessment Billing LADY-7 Assessment Tool: LADY-7 Assessment 21951 Review of Systems Const Denies chills, Denies fever(s) and Denies headache(s) Eyes Denies blurry vision ENT Denies headache(s), Denies nasal discharge, Denies nasal obstruction, Denies odynophagia and Denies sinus pain Resp Denies cough and Denies hemoptysis GI Denies diarrhea, Denies odynophagia, Denies vomiting and Denies hematemesis Reports as per HPI Musc Denies abnormal gait Skin/Breast Reports as per HPI Neuro Denies Neuro-related abnormal movements, Denies Abnormal speech present, Denies abnormal gait, Denies headache(s) and Denies Sensory deficit (Neuro) Psych Denies mood swings and Denies paranoia Endo Reports as per HPI Johan/Lymph Reports as per HPI Aller/Immun Reports as per HPI Physical exam (Primary Care) Vital Signs: Last Vital Signs Pulse 77 10/26/23 11:56 BP 126/72 10/26/23 11:56 Pulse Ox 97 10/26/23 11:56 Oxygen Delivery Method Room Air 10/26/23 11:56 BMI result Body Mass Index 27.6 Tobacco/Smoking Status: Tobacco use Status Tobacco use date assessed 10/26/23 10/26/23 11:58 Patient Tobacco Use Status Never used Tobacco 10/26/23 11:58 e-Cigarette/Vaping Use Never Used 10/26/23 11:58 PHQ-9: PHQ-9 Score PHQ-9: Total score 0 10/26/23 12:02 Depression Screening Interpretation: Negative Thrive Assessment: Date of Thrive Assessment Date Thrive assessed 10/26/23 10/26/23 12:02 Currently or been in a relationship where the following occur: I choose not to answer Const General: cooperative, comfortable and no acute distress Orientation/consciousness: patient oriented x3 HENMT Head: Yes normocephalic and Yes atraumatic Eyes General: appearance normal, both eyes and all related structures Pupils: Equal, round and reactive pupils present EOM: EOMs intact bilaterally Neck Neck: Yes supple and No lymphadenopathy Thyroid: Thyroid normal Lymphatic: no lymphadenopathy noted Chest Breast/axilla palpation: normal palpation of the breasts Resp Effort & Inspection: normal respiratory effort and able to speak in complete sentences Auscultation: clear to auscultation bilaterally Cardio Heart sounds: S1 normal heart sound present and S2 normal heart sound present GI Palpation (GI): Soft to palpation and nontender Auscultation: normal bowel sounds General: Yes no CVA tenderness Back/Spine/Pelvis Back: no CVA tenderness Skin General skin exam: elasticity normal and turgor normal Neuro General: patient oriented x3 and gait normal Cranial nerves: Yes Equal, round and reactive pupils present Speech: No Abnormal speech present Sensory Exam: No Sensory deficit (Neuro) Coordination: tandem gait normal and Romberg test negative Extrem General: Yes normal exam except as noted and No edema Office Procedures EKG 23922-[id number], Complete Assessment and Plan Assessment & Plan (1) Encounter for general adult medical examination with abnormal findings: Code(s): Z00.01 - Encounter for general adult medical examination with abnormal findings (2) Chest pain: Code(s): R07.9 - Chest pain, unspecified Qualifiers: Chest pain type: precordial pain Qualified Code(s): R07.2 - Precordial pain (3) Other specified hypothyroidism: Code(s): E03.8 - Other specified hypothyroidism Plan Patient is 68-year-old female came in today for physical examination Patient says that she has been having left-sided chest pain off and on randomly for past few weeks It last up to 15 minutes at time Non radiating, no diaphoresis associated no nausea no vomiting no association with eating EKG done today shows minimal voltage criteria for LVH no acute findings as before I have sent omeprazole 20 mg to be taken b.i.d. for 1 month We will book telemedicine visit in 3 weeks to see how patient is doing Labs were done May of this year reviewed again Only medication from this office is levothyroxine 50 mcg Due for mammogram, order printed and handed to patient she goes to [facility] Patient had a gastroenterology appointment last year for colonoscopy screening but did not go in for colonoscopy She says that she was in the middle of changing insurance Phone Number provided to call Gastroenterology at both the colonoscopy appointment Orders: Orders MM tomosynthesis screening BI Today Z12.31 - Encounter for screening mammogram for malignant neoplasm of breast AMB EKG-In Office Today R07.2 - Precordial pain Medications: New omeprazole 20 mg PO BID 30 days 60 caps 0RF Coding Level of Care Code Est Pt Level 4 (38289) Est Pt Prev Care >65y(18433) Diagnoses Encounter for general adult medical examination with abnormal findings Z00.01 Precordial pain R07.2 Chest pain type: precordial pain Other specified hypothyroidism E03.8 CPT Codes EKG - CPT: 74745-[id number], Complete ([id number]) Additional Codes LADY-7 Assessment Billing - LADY-7 Assessment Tool: LADY-7 Assessment 62573 ([id number])
== END 2023-10-26 12:37 | disposition home or self-care (01) ==
PROVIDERS: PCP Internal Medicine; Visit Provider Internal Medicine
DX: Z00.00 Encounter for general adult medical examination without abnormal findings (principal); R07.2 Precordial pain; E03.8 Other specified hypothyroidism
CPT/HCPCS: 93000; 99214; 99397

== ENCOUNTER 2023-11-25 07:57 | Outpatient (AMB) | payer MEDICARE, SELFPAY ==
--- NOTE | 2023-11-25 08:11 | MHC.PC.OV ---
Intake Visit Reasons: 3 week f/u~[phone] Allergies lactose [Lactose] Allergy (Mild, Verified 11/25/23 08:12) DIARRHEA morphine [Morphine] Allergy (Mild, Verified 11/25/23 08:12) HIVES, itching ciprofloxacin [Cipro] Allergy (Unknown, Verified 11/25/23 08:12) eye swelling, itching Latex Exam Gloves Allergy (Unknown, Uncoded 05/27/22 13:50) itching NUTS Allergy (Unknown, Uncoded 05/27/22 13:50) itching Medication List - Last Reconciled 11/25/23 by Dexter Garcia MD levothyroxine 50 mcg PO DAILY 90 days Tobacco use date assessed: 11/25/23 Fall risk assessment: No Falls in past year Last assessed Fall Risk: 11/25/23 Dental Screening Dental Screen Date: 11/25/23 Did you have a dental visit in the last 12 months?: Yes Did you have a dental problem in the last 6 months where you did not have access to dental care?: No Was dental information given to patient?: Patient has dentist HPI 3 week f/u~[phone] HPI Details Patient was seen 3 wks ago when she came in for physical exam she verbalized , that she has been feeling chest discomfort on left side off and on we did the EKG and started her on PPI to see if she feels better she was also provided with phone number of Gastro, so she can book her own apt for colonoscopy this is a follow up call on that she tells me that she never took the Omeprazole because she read that this medication is for Ulcer and she dont have Ulcers ! 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 How often do you have a drink containing alcohol?: 2-4 times a month 2. How many drinks containing alcohol do you have on a typical day when you are drinking?: 1 or 2 3. How often do you have six or more drinks on one occasion?: Never Total Score: 2 Score Reviewed/Action Taken: Yes LADY-7 AMB Questionnaire LADY-7 Date LADY - 7 assessed: 10/26/23 Source: Developed by Drs. Charli Webster, Karla Poole, Ed Quintero and colleagues, with an educational jeni from [employer]. Review of Systems Const Denies chills and Denies fever(s) ENT Denies epistaxis and Denies nasal discharge Resp Denies chest congestion, Denies cough and Denies hemoptysis GI Denies diarrhea and Denies nausea Skin/Breast Denies rash Neuro Reports no additional complaints Psych Reports no additional complaints Endo Reports no additional complaints Physical exam (Primary Care) Tobacco/Smoking Status: Tobacco use Status Tobacco use date assessed 11/25/23 11/25/23 08:13 Patient Tobacco Use Status Never used Tobacco 11/25/23 08:13 e-Cigarette/Vaping Use Never Used 11/25/23 08:13 Thrive Assessment: Date of Thrive Assessment Date Thrive assessed 10/26/23 11/25/23 08:13 Telehealth Telehealth Telehealth Platform: [employer] Location of provider rendering services: practice address Location of patient: address on file Patient Identification confirmed using: Name, : Yes Telehealth method: voice only Patient verbally consented to treatment: Yes Patient verbally consented to billing insurance company: Yes Patient informed of any privacy concerns related to visit: Yes Minutes spent on Phone/Video with Pt.: 13 Assessment and Plan Assessment & Plan (1) Dyspepsia: Code(s): R10.13 - Epigastric pain Plan Patient was seen 3 wks ago when she came in for physical exam she verbalized , that she has been feeling chest discomfort on left side off and on we did the EKG and started her on PPI to see if she feels better she was also provided with phone number of Gastro, so she can book her own apt for colonoscopy this is a follow up call on that she tells me that she never took the Omeprazole because she read that this medication is for Ulcer and she dont have Ulcers ! she also didnt call the Gastro, because she lost the number i gave her she was in hurry so couldnt take the number for gastro again Coding Level of Care Code Tele Est Pt Level 3 (41296) Diagnoses Dyspepsia R10.13
== END 2023-11-25 09:21 | disposition home or self-care (01) ==
PROVIDERS: PCP Internal Medicine; Visit Provider Internal Medicine
DX: R10.13 Epigastric pain (principal)
CPT/HCPCS: 99442

== ENCOUNTER 2024-03-31 12:05 | Outpatient (AMB) | payer MEDICARE, SELFPAY ==
[2024-03-31 12:08] VITALS: BP 132/76; PULSE 72; O2SAT 95; BMI 29.1
--- NOTE | 2024-03-31 12:08 | A.OFFPC_ITS ---
Vital Signs 03/31/24 12:08 Height 5 ft 4 in Weight 169 lb 6 oz BMI 29.1 BP 132/76 Blood Pressure Location Lt brachial Position Sitting Pulse 72 Pulse Source Pulse Oximeter Pulse Oximetry (%) 95 Oxygen Delivery Method Room Air Intake Visit Reasons: 6 month fu Allergies lactose [Lactose] Allergy (Mild, Verified 03/31/24 12:09) DIARRHEA morphine [Morphine] Allergy (Mild, Verified 03/31/24 12:09) HIVES, itching ciprofloxacin [Cipro] Allergy (Unknown, Verified 03/31/24 12:09) eye swelling, itching Latex Exam Gloves Allergy (Unknown, Uncoded 05/27/22 13:50) itching NUTS Allergy (Unknown, Uncoded 05/27/22 13:50) itching Medication List - Last Reconciled 03/31/24 by Dexter Garcia MD levothyroxine 50 mcg PO DAILY 90 days Tobacco use date assessed: 03/31/24 Fall risk assessment: No Falls in past year Last assessed Fall Risk: 03/31/24 Dental Screening Dental Screen Date: 03/31/24 Did you have a dental visit in the last 12 months?: Yes Did you have a dental problem in the last 6 months where you did not have access to dental care?: No Was dental information given to patient?: Patient has dentist HPI 6 month fu HPI Details History - bulleted - The patient is a 68-year-old female pr esenting for management of hypothyroidism. - Only current medication is levothyroxi ne. - Last thyroid function test performed i n May; not rechecked since. - The patient reports receiving both inf luenza and RSV vaccines at a [facility]. - General health maintenance includes pl anning next physical exam in November. - The patient inquired about a potential refill for thyroid medication, indicating ongoing management. Review of Systems - General: Denies any current problems o r concerns. - Endocrine: Reports taking levothyroxin e; due for thyroid function test. - General: No fever no chills - Neurological: No headaches no dizziness - Ear nose throat: No sore throat no hearing difficulty no ear pain - Cardiovascular: No syncope, no chest pain, no palpitations - Gastrointestinal: No nausea vomiting or diarrhea - Endocrine: No polyuria polydipsia no heat intolerance - Genitourinary: No dysuria , no blood in urine Physical Exam - General: No acute distress - HEENT: No acute findings - Neck: Supple - Respiratory system: Able to talk in f ull sentences, no audible wheeze - cardiovascular: S1-S2 regular in rat e and rhythm - Gastrointestinal: No pain - Extremities: No new findings - CREDENTIALS SPECIALIST: Alert awake oriented x3 motor se nsory intact - Skin: Normal turgor Patient Instructions - Complete laboratory tests for thyroid function at your convenience; labs are open Wednesday until 2:00 PM. - Proceed directly to the lab for a bloo d test after today?s visit. - Attend the scheduled physical exam in November. - Contact for a refill of levothyroxine as needed. 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 1. Little interest or pleasure in doing things: not at all 2. Feeling down, depressed, or hopeless: not at all 3. Trouble falling or staying asleep, or sleeping too much: not at all 4. Feeling tired or having little energy: not at all 5. Poor appetite or overeating: not at all 6. Feeling bad about yourself - or that you are a failure or have let yourself or your family down: not at all 7. Trouble concentrating on things, such as reading the newspaper or watching television: not at all 8. Moving or speaking so slowly that other people could have noticed. Or the opposite - being so fidgety or restless that you have been moving around a lot more than usual: not at all 9. Thoughts that you would be better off or of hurting yourself in some way: not at all Total score: 0 Depression Screening Interpretation: Negative Depression Screening Done: Yes [id number] - PHQ-9 Billing: Yes Source: Developed by Drs. Charli Webster, Karla Poole, Ed Quintero and colleagues, with an educational jeni from [employer]. Thrive Questionnaire Date Thrive assessed: 03/31/24 I am a: Patient What is your living situation today?: I have a steady place to live Within the past 12 months, did the food you bought not last and you didn't have the money to get more?: Never true Within the past 12 months, did you worry whether your food would run out before you got money to buy more?: Never true Do you have trouble paying for medicines?: No Do you have trouble getting transportation to medical appointments?: No Do you have trouble paying your heating and electricity bill?: No Do you have trouble taking care of your child, family member or friend?: No Do you have trouble with day-to-day activities such as bathing, preparing meals, shopping, managing finances, etc.?: No Are you currently unemployed and looking for a job?: No Are you interested in more education?: No Please select the resources that you would like help with: None Currently or been in a relationship where the following occur: No concerns reported THRIVE Score: 0 AUDIT C Alcohol Use Questionnaire (AUDIT-C) 1. How often do you have a drink containing alcohol?: 2-4 times a month 2. How many drinks containing alcohol do you have on a typical day when you are drinking?: 1 or 2 3. How often do you have six or more drinks on one occasion?: Less than monthly Total Score: 3 Score Reviewed/Action Taken: Yes LADY-7 AMB Questionnaire LADY-7 Date LADY - 7 assessed: 03/31/24 Feeling nervous, anxious, or on edge: 1 = Several days Not being able to stop or control worryin = Not at all Worrying too much about different things: 1 = Several days Trouble relaxin = Several days Being so restless that it is hard to sit still: 0 = Not at all Becoming easily annoyed or irritable: 1 = Several days Feeling afraid as if something awful might happen: 0 = Not at all Total LADY-7 score (0-4 normal; 5-9 mild; 10-14 moderate; 15-21 severe): 4 Source: Developed by Drs. Charli Webster, Karla Poole, Ed Quintero and colleagues, with an educational jeni from [employer]. LADY-7 Assessment Billing LADY-7 Assessment Tool: LADY-7 Assessment 77136 Physical exam (Primary Care) Vital Signs: Last Vital Signs Pulse 72 03/31/24 12:08 BP 132/76 03/31/24 12:08 Pulse Ox 95 03/31/24 12:08 Oxygen Delivery Method Room Air 03/31/24 12:08 BMI result Body Mass Index 29.1 Tobacco/Smoking Status: Tobacco use Status Tobacco use date assessed 03/31/24 03/31/24 12:11 Patient Tobacco Use Status Never used Tobacco 03/31/24 12:11 e-Cigarette/Vaping Use Never Used 03/31/24 12:11 PHQ-9: PHQ-9 Score PHQ-9: Total score 0 03/31/24 12:11 Depression Screening Interpretation: Negative Thrive Assessment: Date of Thrive Assessment Date Thrive assessed 03/31/24 03/31/24 12:11 Currently or been in a relationship where the following occur: No concerns reported Coding Level of Care Code Est Pt Level 3 (75951) Diagnoses Hypothyroidism, unspecified type E03.9 Hypothyroidism type: unspecified Additional Codes LADY-7 Assessment Billing - LADY-7 Assessment Tool: LADY-7 Assessment 49049 ([id number]) PHQ-9 - 51335 - PHQ-9 Billing: Yes ([id number]) Assessment & Plan Assessment & Plan (1) Hypothyroidism: Code(s): E03.9 - Hypothyroidism, unspecified Category: Medical Qualifiers: Hypothyroidism type: unspecified Qualified Code(s): E03.9 - Hypothyroidism, unspecified Plan History - bulleted - The patient is a 68-year-old female presenting for management of hypothyroidism. - Only current medication is levothyroxine. - Last thyroid function test performed in May; not rechecked since. - The patient reports receiving both influenza and RSV vaccines at a [facility]. - General health maintenance includes planning next physical exam in November. - The patient inquired about a potential refill for thyroid medication, noel cating ongoing management. Review of Systems - General: Denies any current problems or concerns. - Endocrine: Reports taking levothyroxine; due for thyroid function test. - General: No fever no chills - Neurological: No headaches no dizziness - Ear nose throat: No sore throat no hearing difficulty no ear pain - Cardiovascular: No syncope, no chest pain, no palpitations - Gastrointestinal: No nausea vomiting or diarrhea - Endocrine: No polyuria polydipsia no heat intolerance - Genitourinary: No dysuria , no blood in urine Physical Exam - General: No acute distress - HEENT: No acute findings - Neck: Supple - Respiratory system: Able to talk in full sentences, no audible wheeze - cardiovascular: S1-S2 regular in rate and rhythm - Gastrointestinal: No pain - Extremities: No new findings - CREDENTIALS SPECIALIST: Alert awake oriented x3 motor sensory intact - Skin: Normal turgor Patient Instructions - Complete laboratory tests for thyroid function at your convenience; labs are open Wednesday until 2:00 PM. - Proceed directly to the lab for a blood test after today?s visit. - Attend the scheduled physical exam in November. - Contact for a refill of levothyroxine as needed. Orders: Orders TSH reflex Free T4 Today E03.9 - Hypothyroidism, unspecified Medications: Refilled levothyroxine 50 mcg PO DAILY 90 tabs 1RF 90 days E03.8 - Other specified hypothyroidism
== END 2024-03-31 12:17 | disposition home or self-care (01) ==
PROVIDERS: PCP Internal Medicine; Visit Provider Internal Medicine
DX: E03.9 Hypothyroidism, unspecified (principal)

== ENCOUNTER 2024-03-31 12:05 | Outpatient (REF) | payer MEDICARE, SELFPAY ==
[2024-03-31 14:39] LABS: TSH reflex Free T4 1.94 uIU/mL (0.32-4.0)
== END 2024-03-31 12:06 | disposition home or self-care (01) ==
LOC: HO.HMGCLDS 12:05
PROVIDERS: PCP Internal Medicine; Visit Provider Internal Medicine
DX: E03.9 Hypothyroidism, unspecified (principal)
CPT/HCPCS: 36415; 84443; 96127; 99212

== ENCOUNTER 2024-05-17 09:22 | Outpatient (AMB) | payer MEDICARE, SELFPAY ==
[2024-05-17 09:24] VITALS: BP 122/74; PULSE 80; RESP 17; TEMP 36.8; O2SAT 98; BMI 29.6
--- NOTE | 2024-05-17 09:24 | MHC.PC.OV ---
Vital Signs 05/17/24 09:24 Height 5 ft 4 in Weight 172 lb 3 oz BMI 29.6 BP 122/74 Blood Pressure Location Lt brachial Position Sitting Respiration 17 Pulse 80 Pulse Source Pulse Oximeter Temp 98.2 F Temp Source Oral Pulse Oximetry (%) 98 Oxygen Delivery Method Room Air Intake Visit Reasons: R foot swollen/stomach flu Allergies lactose [Lactose] Allergy (Mild, Verified 05/17/24 09:24) DIARRHEA morphine [Morphine] Allergy (Mild, Verified 05/17/24 09:24) HIVES, itching ciprofloxacin [Cipro] Allergy (Unknown, Verified 05/17/24 09:24) eye swelling, itching Latex Exam Gloves Allergy (Unknown, Uncoded 05/27/22 13:50) itching NUTS Allergy (Unknown, Uncoded 05/27/22 13:50) itching Medication List - Last Reconciled 05/17/24 by Dexter Garcia MD levothyroxine 50 mcg PO DAILY 90 days Tobacco use date assessed: 05/17/24 Fall risk assessment: No Falls in past year Last assessed Fall Risk: 05/17/24 Dental Screening Dental Screen Date: 05/17/24 Did you have a dental visit in the last 12 months?: Yes Did you have a dental problem in the last 6 months where you did not have access to dental care?: No Was dental information given to patient?: Patient has dentist HPI R foot swollen/stomach flu HPI Details History - The patient is a 69-year-old female presenting with a right foot sprain. - Sustained following a syncope episode while moving her car. - at the time patient was suffering from stomach flu causing concurrent acute gastroenteritis with diarrhea. - No vomiting was reported; while getting out of the car she got dizzy and passed out, was found by her son 1 minute later and was brought in side Since then she has been drinking electrolytes and fluids and is feeling much better, diarrhea has stopped Later she started having pain right ankle was seen in urgent care - X-rays were done which showed no fracture; the condition diagnosed as a sprain. - Currently experiencing mild pain and swelling managed with ice. - Driving deemed feasible as long as the activity is limited. 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 - Use an lula wrap if additional support is needed. - Apply ice for 20 minutes every few hours to reduce swelling. - Keep drinking fluids with electrolytes, especially if symptoms like diarrhea recur. - Monitor foot pain and swelling and seek reassessment if symptoms worsen. - Return to work cautiously, focusing on limiting unnecessary walking. Review of Systems - General: No fever no chills - Neurological: No headaches no dizziness - Ear nose throat: No sore throat no hearing difficulty no ear pain - Cardiovascular: No syncope, no chest pain, no palpitations - Gastrointestinal: No nausea vomiting or diarrhea - Endocrine: No polyuria polydipsia no heat intolerance - Genitourinary: No dysuria , no blood in urine Physical Exam General: No acute distress HEENT: No acute findings Neck: Supple Respiratory system: Able to talk in full sentences, no audible wheeze cardiovascular: S1-S2 regular in rate and rhythm Gastrointestinal: No pain, diarrhea stopped completely Extremities: Right foot sprained, slight swelling, tender to press lateral malleolus PROPERTY DAMAGE CLAIMS ADJUSTOR: Alert awake oriented x3 motor sensory intact Skin: Normal turgor PFSH Medical History Depression Hyperlipemia History of breast cancer Hypothyroidism Surgical History History of hysterectomy History of appendectomy Family History Other Mental health disorder Substance use disorder Social History Housing: Condominium Alcohol intake: never Patient Tobacco Use Status: Never used Tobacco e-Cigarette/Vaping Use: Never Used service: No Current occupational status: employed 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, 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 Sexual orientation: Straight/Heterosexual Gender identity: Female Cognitive needs: No Hearing needs: No Vision needs: No Questionnaire Thrive Questionnaire Date Thrive assessed: 03/31/24 I am a: Patient What is your living situation today?: I have a steady place to live Within the past 12 months, did the food you bought not last and you didn't have the money to get more?: Never true Within the past 12 months, did you worry whether your food would run out before you got money to buy more?: Never true Do you have trouble paying for medicines?: No Do you have trouble getting transportation to medical appointments?: No Do you have trouble paying your heating and electricity bill?: No Do you have trouble taking care of your child, family member or friend?: No Do you have trouble with day-to-day activities such as bathing, preparing meals, shopping, managing finances, etc.?: No Are you currently unemployed and looking for a job?: No Are you interested in more education?: No Please select the resources that you would like help with: None Currently or been in a relationship where the following occur: No concerns reported THRIVE Score: 0 AUDIT C Alcohol Use Questionnaire (AUDIT-C) 1. How often do you have a drink containing alcohol?: 2-4 times a month 2. How many drinks containing alcohol do you have on a typical day when you are drinking?: 1 or 2 3. How often do you have six or more drinks on one occasion?: Less than monthly Total Score: 3 Score Reviewed/Action Taken: Yes LADY-7 AMB Questionnaire LADY-7 Date LADY - 7 assessed: 03/31/24 Source: Developed by Drs. Charli Webster, Karla Poole, Ed Quintero and colleagues, with an educational jeni from [employer]. Physical exam (Primary Care) Vital Signs: Last Vital Signs Temp 98.2 F 05/17/24 09:24 Pulse 80 05/17/24 09:24 Resp 17 05/17/24 09:24 BP 122/74 05/17/24 09:24 Pulse Ox 98 05/17/24 09:24 Oxygen Delivery Method Room Air 05/17/24 09:24 BMI result Body Mass Index 29.6 Tobacco/Smoking Status: Tobacco use Status Tobacco use date assessed 05/17/24 05/17/24 09:26 Patient Tobacco Use Status Never used Tobacco 05/17/24 09:26 e-Cigarette/Vaping Use Never Used 05/17/24 09:26 Thrive Assessment: Date of Thrive Assessment Date Thrive assessed 03/31/24 05/17/24 09:26 Currently or been in a relationship where the following occur: No concerns reported Coding Level of Care Code Est Pt Level 4 (75641) Diagnoses Sprain of right ankle, unspecified ligament, initial encounter S93.401A Encounter type: initial encounter Involved ligament of ankle: unspecified ligament Stomach flu A08.4 Vasovagal syncope R55 Syncope type: vasovagal syncope Assessment & Plan Assessment & Plan (1) Right ankle sprain: Code(s): S93.401A - Sprain of unspecified ligament of right ankle, initial encounter Category: Medical Qualifiers: Encounter type: initial encounter Involved ligament of ankle: unspecified ligament Qualified Code(s): S93.401A - Sprain of unspecified ligament of right ankle, initial encounter (2) Stomach flu: Code(s): A08.4 - Viral intestinal infection, unspecified Category: Medical (3) Syncope: Code(s): R55 - Syncope and collapse Category: Medical Qualifiers: Syncope type: vasovagal syncope Qualified Code(s): R55 - Syncope and collapse Plan History - The patient is a 69-year-old female presenting with a right foot sprain. - Sustained following a syncope episode while moving her car. - at the time patient was suffering from stomach flu causing concurrent acute gastroenteritis with diarrhea. - No vomiting was reported; while getting out of the car she got dizzy and passed out, was found by her son 1 minute later and was brought in side Since then she has been drinking electrolytes and fluids and is feeling much better, diarrhea has stopped Later she started having pain right ankle was seen in urgent care - X-rays were done which showed no fracture; the condition diagnosed as a sprain. - Currently experiencing mild pain and swelling managed with ice. - Driving deemed feasible as long as the activity is limited. 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 - Use an lula wrap if additional support is needed. - Apply ice for 20 minutes every few hours to reduce swelling. - Keep drinking fluids with electrolytes, especially if symptoms like diarrhea recur. - Monitor foot pain and swelling and seek reassessment if symptoms worsen. - Return to work cautiously, focusing on limiting unnecessary walking.
== END 2024-05-17 10:02 | disposition home or self-care (01) ==
PROVIDERS: PCP Internal Medicine; Visit Provider Internal Medicine
DX: S93.401A Sprain of unspecified ligament of right ankle, initial encounter (principal); A08.4 Viral intestinal infection, unspecified; R55 Syncope and collapse

== ENCOUNTER → 2024-05-17 09:22 | Outpatient (BNVA) | payer MEDICARE, SELFPAY | PROVIDERS: PCP Internal Medicine; Visit Provider Internal Medicine | DX: S93.401D Sprain of unspecified ligament of right ankle, subsequent encounter (principal); A08.4 Viral intestinal infection, unspecified; R55 Syncope and collapse | CPT/HCPCS: 99212 ==

== ENCOUNTER 2024-05-27 11:53 | Outpatient (REF) | payer MEDICARE, SELFPAY ==
[2024-05-27 13:39] LABS: Basophils Absolute Auto 0.1 X10*3/uL (0.0-0.2); Basophils Percent Auto 1.7 % (0-2); Eosinophils Absolute Auto 0.2 X10*3/uL (0.0-0.4); Eosinophils Percent Auto 2.6 % (0-4); Hematocrit 41.2 % (37.0-47.0); Hemoglobin 13.7 g/dl (12.0-16.0); Imm Gran Abs Auto 0.02 X10*3/uL (0.00-0.03); Imm Gran Pct Auto 0.3 % (0.0-0.4); Lymphocytes Absolute Auto 1.8 X10*3/uL (1.2-4.9); Lymphocytes Percent Auto 23.9 % (20-40); MANUAL DIFF FLAG NO; Mean Corpuscular HGB Conc 33.3 g/dl (31.0-35.0); Mean Corpuscular Hemoglobin 27.6 pg (27.0-33.0); Mean Corpuscular Volume 82.9 fL (80.0-98.0); Mean Platelet Volume 10.4 fL (9.4-12.3); Monocytes Absolute Auto 0.6 X10*3/uL (0.1-1.2); Monocytes Percent Auto 7.2 % (2-11); Neutrophils Absolute Auto 4.9 x10*3/uL (2.0-8.3); Neutrophils Percent Auto 64.3 % (45-73); Platelet Count 294 X10*3/uL (160-400); Red Blood Count 4.97 X10*6/uL (4.20-5.50); Red Cell Distribution Width 12.9 % (11.0-16.0); White Blood Count 7.6 X10*3/uL (4.8-10.8)
[2024-05-27 13:55] LABS: Alanine Aminotransferase 20 U/L (0-31); Alkaline Phosphatase 79 U/L (39-117); Anion Gap 11 (12-20); Aspartate Amino Transferase 22 U/L (5-31); Bilirubin Total 0.5 mg/dL (0.0-1.0); Blood Urea Nitrogen 9 mg/dL (9-16); Calcium 9.3 mg/dL (8.4-10.2); Carbon Dioxide 29 mmol/L (22-29); Chloride 106 mmol/L (96-108); Estimated Glomerular Filt Rate > 60; Glucose Random 95 mg/dL (60-115); Potassium 3.8 mmol/L (3.3-5.1); Sodium 142 mmol/L (135-145); Total Protein 7.4 g/dL (6.5-8.0)
== END 2024-05-27 11:54 | disposition home or self-care (01) ==
LOC: HO.HMGCLDS 11:53
PROVIDERS: PCP Internal Medicine; Visit Provider Internal Medicine
DX: R55 Syncope and collapse (principal)
CPT/HCPCS: 36415; 80053; 85025

== ENCOUNTER 2024-07-03 16:50 | Emergency (ER) | payer MEDICARE, SELFPAY ==
--- NOTE | ~2024-07-03 | XR_ITS ---
CLINICAL HISTORY: pain 1 view chest x-ray Comparison: None Findings: No consolidation or effusion. There is enlargement of the cardiopericardial silhouette. There is elevation of the right hemidiaphragm. No acute fracture. IMPRESSION: 1. No acute findings. Cardiomegaly. This document has been electronically signed by: Jodi Brambila MD on 07/03/2024 18:36:13
--- NOTE | 2024-07-03 17:02 | ECG_ITS ---
Test Reason : pain Blood Pressure : */* mmHG Vent. Rate : 83 BPM Atrial Rate : 83 BPM P-R Int : 166 ms QRS Dur : 86 ms QT Int : 386 ms P-R-T Axes : 61 -11 38 degrees QTcB Int : 453 ms Normal sinus rhythm Minimal voltage criteria for LVH, may be normal variant ( R in aVL ) Borderline ECG When compared with ECG of 13-May-2022 10:38, No significant change was found Referred By: Nelly Murphy Electronically Signed By: Alfred Brian
[2024-07-03 17:12] VITALS: BP 140/100; BP 149/86; PULSE 80; PULSE 82; RESP 16; TEMP 36.5; O2SAT 100; O2SAT 98; BMI 26.3
--- NOTE | 2024-07-03 17:14 | ED_ITS ---
HPI - General Adult General Chief complaint: Chest Pain Stated complaint: chest pain Time Seen by Provider: 07/03/24 17:01 Source: patient Limitations: no limitations History of Present Illness ED Provider: Nelly Murphy PA-C HPI narrative: 69-year-old female with history of hypothyroidism presents with acute chest pain. Patient states she works for [employer]. 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 At this time, patient developed left anterior chest discomfort the radiating into her left arm. Associated dizziness, cold sweats and shortness of breath. Patient received aspirin via EMS. Her discomfort resolved pre arrival. Patient was not had similar episodes. She does not smoke tobacco. She denies strong family history of coronary artery disease at a young age; I specified her mother or father. Patient denies that pain is elicited with palpation of chest wall or movement of left upper extremity. Patient denies recent cough or cold symptoms. Related Data Previous Rx's ?Medication ?Instructions ?Recorded levothyroxine 50 mcg tablet 50 mcg PO DAILY 90 days #90 tabs 03/31/24 Allergies Allergy/AdvReac Type Severity Reaction Status Date / Time lactose [Lactose] Allergy Mild DIARRHEA Verified 07/03/24 17:15 morphine [Morphine] Allergy Mild HIVES, Verified 07/03/24 17:15 itching ciprofloxacin [Cipro] Allergy Unknown eye Verified 07/03/24 17:15 swelling, itching Latex Exam Gloves Allergy Unknown itching Uncoded 07/03/24 17:15 NUTS Allergy Unknown itching Uncoded 07/03/24 17:15 Review of Systems 2 Review of Systems: Yes all other systems are reviewed and are negative Constitutional: Constitutional: Denies fatigue and Denies fever(s) ENT: Reports dizziness Cardiovascular: Cardiovascular: Reports chest pain and Reports dyspnea Respiratory: Respiratory: Denies cough and Reports dyspnea Gastrointestinal: Gastrointestinal: Denies abdominal pain, Denies diarrhea, Denies nausea and Denies vomiting Musculoskeletal: Musculoskeletal: Denies arthralgias Neurologic: Reports dizziness Endocrine: Endocrine: Denies fatigue PMFSH Past Medical History Attestation statement: The following information was validated with the patient. Medical History Depression Hyperlipemia History of breast cancer Hypothyroidism Surgical History History of hysterectomy History of appendectomy Family History Family History Other Mental health disorder Substance use disorder Social History Social History Housing: Condominium Alcohol intake: never Patient Tobacco Use Status: Never used Tobacco Smoked in Last 30 Days: No e-Cigarette/Vaping Use: Never Used Use of substances other than those prescribed or required for medical reasons: No Advance Directives: No Advance Directives Information Provided: No Do you have a plan to hurt others: No Plan service: No Current occupational status: employed 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, 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 Sexual orientation: Straight/Heterosexual Gender identity: Female Cognitive needs: No Hearing needs: No Vision needs: No Physical Exam ED Vital Signs: Vital Signs - 24 hr 07/03/24 17:12 07/03/24 18:07 07/03/24 19:08 Temperature 97.7 F 97.9 F 98.0 F Pulse Rate 82 76 75 Respiratory Rate 16 17 19 Blood Pressure 149/86 H 134/63 132/66 Pulse Oximetry 100 98 97 Oxygen Delivery Method Room Air Room Air Room Air 07/03/24 20:30 07/03/24 20:32 Temperature 0 F L Pulse Rate 69 69 Respiratory Rate 14 14 Blood Pressure 131/68 131/68 Pulse Oximetry 95 95 Oxygen Delivery Method Room Air Room Air BMI result Body Mass Index 26.3 Const Other: Alert Orientation/consciousness: patient oriented x3 Chest Other: Pain not reproducible with palpation of chest wall Resp Effort & Inspection: normal respiratory effort Cardio Other: Normal peripheral perfusion Skin Other: Warm dry no rash Neuro General: patient oriented x3, gait normal, no focal motor deficits and CN's II- XI intact bilaterally Psych Other: Cooperative Medical Decision Making Medical Decision Making MDM Narrative: 69-year-old female with history of hypothyroidism presents with acute chest pain. 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 At this time, patient developed left anterior chest discomfort the radiating into her left arm. Associated dizziness, cold sweats and shortness of breath. Patient received aspirin via EMS. Her discomfort resolved pre arrival. Patient was not had similar episodes. She does not smoke tobacco. She denies strong family history of coronary artery disease at a young age; I specified her mother or father. Patient denies that pain is elicited with palpation of chest wall or movement of left upper extremity. Patient denies recent cough or cold symptoms. Problem: Age History: Per patient I have considered the following differential diagnoses: ACS, musculoskeletal strain, costochondritis Plan: ACS was considered, her story is concerning. Screening labs including a cardiac enzymes EKG and chest x-ray were obtained. Thus far her assessment is negative. We will obtain a delta troponin. To note, her Heart score is 3, with risk for MACE considered to be low. It is deemed appropriate that the patient can be discharged and follow up with primary care as an outpatient, for further discussion as to the need for further cardiac consult. The patient is an elderly woman, performing a rigorous physical task, it seems that she physically over exerted herself with assisting the morbidly obese patient. Thought about costochondritis, however she has not had recent symptoms. I have independently reviewed the following tests: Labs: No leukocytosis, not anemic, no electrolyte abnormality, troponin x2 are negative EKG: Normal sinus rhythm, rate 83, no ischemic changes no ectopy when compared to prior study, QTC 453 Chest x-ray:indings: No consolidation or effusion. There is enlargement of the cardiopericardial silhouette. There is elevation of the right hemidiaphragm. No acute fracture. IMPRESSION: 1. No acute findings. Cardiomegaly. Lab Data 07/03/24 17:42 07/03/24 17:42 Labs: Lab Results 07/03/24 07/03/24 Range/Units 17:42 19:23 WBC 8.7 (4.8-10.8) X10*3/uL RBC 4.88 (4.20-5.50) X10*6/uL Hgb 13.3 (12.0-16.0) g/dl Hct 39.5 (37.0-47.0) % MCV 80.9 (80.0-98.0) fL MCH 27.3 (27.0-33.0) pg MCHC 33.7 (31.0-35.0) g/dl RDW 12.8 (11.0-16.0) % Plt Count 244 (160-400) X10*3/uL MPV 10.2 (9.4-12.3) fL Immature Gran % (Auto) 0.3 (0.0-0.4) % Neut % (Auto) 67.0 (45-73) % Lymph % (Auto) 21.6 (20-40) % Beaver % (Auto) 6.3 (2-11) % Eos % (Auto) 3.4 (0-4) % Baso % (Auto) 1.4 (0-2) % Lymph # (Auto) 1.9 (1.2-4.9) X10*3/uL Beaver # (Auto) 0.6 (0.1-1.2) X10*3/uL Eos # (Auto) 0.3 (0.0-0.4) X10*3/uL Baso # (Auto) 0.1 (0.0-0.2) X10*3/uL Abs Immat Gran (auto) 0.03 (0.00-0.03) X10*3/uL Absolute Neuts (auto) 5.9 (2.0-8.3) x10*3/uL Absolute Nucleated RBC 0.000 (0.0-0.012) X10*3/uL Nucleated RBC % (auto) 0.0 (0.0-0.2) /100WBC Sodium 141 (135-145) mmol/L Potassium 3.8 (3.3-5.1) mmol/L Chloride 106 (96-108) mmol/L Carbon Dioxide 28 (22-29) mmol/L Anion Gap 11 L (12-20) BUN 17 H (9-16) mg/dL Creatinine 0.74 (0.5-1.4) mg/dL Estim Creat Clear Calc 67.6 Estimated GFR > 60 Random Glucose 121 H (60-115) mg/dL Calcium 9.6 (8.4-10.2) mg/dL Magnesium 2.0 (1.6-2.6) mg/dL Total Bilirubin 0.3 (0.0-1.0) mg/dL AST 25 (5-31) U/L ALT 20 (0-31) U/L Alkaline Phosphatase 81 (39-117) U/L Troponin I High Sens < 2.7 < 2.7 (<3.5-17.0) ng/L Total Protein 7.0 (6.5-8.0) g/dL Albumin 4.0 (3.5-5.0) g/dL Lipase 18 (8-78) U/L Discharge Plan Discharge Clinical Impression: Chest pain Patient Disposition: Home, Self-Care Instructions: Noncardiac Chest Pain (ED) Additional Instructions: All of your screening labs including 2 cardiac enzymes were normal. There were no concerning changes on your EKG, and the chest x-ray is clear. The discomfort that you experienced today is not appearing to be cardiac in nature. Call your primary care provider for a follow up appointment, you may require further assessment as an outpatient. Prescriptions: No Action levothyroxine 50 mcg tablet 50 mcg PO DAILY 90 Days Qty: 90 1RF Stand Alone Forms: Work/School Release Interventions: ED Discharge Assessment Last Done: 07/03/24 20:32 Discharge Date/Time: 07/03/24 20:33 Print Language: Swazi
[2024-07-03 17:46] LABS: MANUAL DIFF FLAG NO
[2024-07-03 17:50] LABS: Basophils Absolute Auto 0.1 X10*3/uL (0.0-0.2); Basophils Percent Auto 1.4 % (0-2); Eosinophils Absolute Auto 0.3 X10*3/uL (0.0-0.4); Eosinophils Percent Auto 3.4 % (0-4); Hematocrit 39.5 % (37.0-47.0); Hemoglobin 13.3 g/dl (12.0-16.0); Imm Gran Abs Auto 0.03 X10*3/uL (0.00-0.03); Imm Gran Pct Auto 0.3 % (0.0-0.4); Lymphocytes Absolute Auto 1.9 X10*3/uL (1.2-4.9); Lymphocytes Percent Auto 21.6 % (20-40); Mean Corpuscular HGB Conc 33.7 g/dl (31.0-35.0); Mean Corpuscular Hemoglobin 27.3 pg (27.0-33.0); Mean Corpuscular Volume 80.9 fL (80.0-98.0); Mean Platelet Volume 10.2 fL (9.4-12.3); Monocytes Absolute Auto 0.6 X10*3/uL (0.1-1.2); Monocytes Percent Auto 6.3 % (2-11); Neutrophils Absolute Auto 5.9 x10*3/uL (2.0-8.3); Platelet Count 244 X10*3/uL (160-400); Red Blood Count 4.88 X10*6/uL (4.20-5.50); Red Cell Distribution Width 12.8 % (11.0-16.0); White Blood Count 8.7 X10*3/uL (4.8-10.8)
[2024-07-03 18:07] VITALS: BP 134/63; PULSE 76; RESP 17; TEMP 36.6; O2SAT 98
[2024-07-03 18:14] LABS: Troponin-I High Sensitivity < 2.7 ng/L (<3.5-17.0)
[2024-07-03 18:15] LABS: Alanine Aminotransferase 20 U/L (0-31); Alkaline Phosphatase 81 U/L (39-117); Anion Gap 11 (12-20); Aspartate Amino Transferase 25 U/L (5-31); Bilirubin Total 0.3 mg/dL (0.0-1.0); Blood Urea Nitrogen 17 mg/dL (9-16); Calcium 9.6 mg/dL (8.4-10.2); Carbon Dioxide 28 mmol/L (22-29); Chloride 106 mmol/L (96-108); Creatinine Clr Calc Pharmacy 67.6; Estimated Glomerular Filt Rate > 60; Glucose Random 121 mg/dL (60-115); Lipase 18 U/L (8-78); Potassium 3.8 mmol/L (3.3-5.1); Sodium 141 mmol/L (135-145)
[2024-07-03 19:08] VITALS: BP 132/66; PULSE 75; RESP 19; TEMP 36.7; O2SAT 97
[2024-07-03 19:49] LABS: Troponin-I High Sensitivity < 2.7 ng/L (<3.5-17.0)
[2024-07-03 20:30] VITALS: BP 131/68; PULSE 69; RESP 14; O2SAT 95
[2024-07-03 20:32] VITALS: BP 131/68; PULSE 69; RESP 14; TEMP -17.7; TEMP 0; O2SAT 95
== END 2024-07-03 20:33 | disposition home or self-care (01) ==
PROVIDERS: Physician Assistant Medical; Emergency Provider Emergency Medicine; PCP Internal Medicine
DX: R07.89 Other chest pain (principal); E66.01 Morbid (severe) obesity due to excess calories; M79.602 Pain in left arm; Z79.899 Other long term (current) drug therapy
CPT/HCPCS: 36415; 71045; 80053; 83690; 83735; 84484; 85025; 93005; 99283; 99285

== ENCOUNTER → 2024-07-03 17:01 | Outpatient (BNV) | payer MEDICARE, SELFPAY | PROVIDERS: Emergency Provider Emergency Medicine; PCP Internal Medicine; Visit Provider Nuclear Medicine | DX: R07.9 Chest pain, unspecified (principal) | CPT/HCPCS: 71045 ==

== ENCOUNTER → 2024-07-03 17:02 | Outpatient (BNV) | payer MEDICARE, SELFPAY | PROVIDERS: Emergency Provider Emergency Medicine; PCP Internal Medicine; Visit Provider Internal Medicine Cardiovascular Disease | DX: R07.9 Chest pain, unspecified (principal) | CPT/HCPCS: 93010 ==

== ENCOUNTER 2024-07-05 11:09 | Outpatient (AMB) | payer MEDICARE, SELFPAY ==
--- NOTE | 2024-07-05 11:12 | A.OFFPC_ITS ---
Vital Signs 07/05/24 11:15 Height 5 ft 4 in Weight 162 lb 4 oz BMI 27.8 BP 120/64 Blood Pressure Location Lt brachial Position Sitting Pulse 78 Pulse Source Pulse Oximeter Pulse Oximetry (%) 96 Oxygen Delivery Method Room Air Intake Visit Reasons: ER f/up Allergies lactose [Lactose] Allergy (Mild, Verified 07/03/24 17:15) DIARRHEA morphine [Morphine] Allergy (Mild, Verified 07/03/24 17:15) HIVES, itching ciprofloxacin [Cipro] Allergy (Unknown, Verified 07/03/24 17:15) eye swelling, itching Latex Exam Gloves Allergy (Unknown, Uncoded 07/03/24 17:15) itching NUTS Allergy (Unknown, Uncoded 07/03/24 17:15) itching Medication List - Last Reconciled 07/05/24 by Dexter Garcia MD levothyroxine 50 mcg PO DAILY 90 days Tobacco use date assessed: 07/05/24 Fall risk assessment: No Falls in past year Last assessed Fall Risk: 07/05/24 Dental Screening Dental Screen Date: 07/05/24 Did you have a dental visit in the last 12 months?: Yes Did you have a dental problem in the last 6 months where you did not have access to dental care?: No Was dental information given to patient?: Patient has dentist HPI ER f/up HPI Details Patient is 69-year-old female came in today for follow-up after visiting emergency room on 07/03/2024 Patient has a history of hypothyroidism, presented to emergency room with a history of acute chest pain, 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 Associated with dizziness cold sweats and shortness a breath EMS was called in she received aspirin while coming to emergency room Her chest pain resolved prior to arrival. Patient is nonsmoker She has a family history of coronary artery disease Her labs showed no leukocytosis no anemia no electrolyte abnormality, and troponins were negative x2 EKG showed normal sinus rhythm rate of 83 beats per minute no ischemic changes QTC 453 Chest x-ray showed no consolidation or effusion After examination patient was discharged with a diagnosis of noncardiac chest pain Only medication she is taking is levothyroxine 50 mcg Patient also have persistent pain behind the right knee. - The patient has had persistent pain be hind the right knee since April, correlating with a history of falling and subsequent episodes. - Knee pain is persistent and present pr imarily during rest or when lying down, with decreased severity when ambulating. - The patient's history includes previou s knee surgery and the presence of a Lucas's cyst under the tendon, which was suspected to be inflamed. - The patient is able to walk on a tread mill without issues, which she performs routinely. 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 - Avoid pushing or pulling obese patient s at work to prevent exacerbation of symptoms. Letter provided for work - Ensure adequate rest and refrain from strenuous activities that may strain the knee. - Attend the scheduled stress test at [facility] cardiology lab, as instructed. Review of Systems - General: No fever no chills - Neurological: No headaches no dizziness - Ear nose throat: No sore throat no hearing difficulty no ear pain - Cardiovascular: No syncope, no palpitations - Gastrointestinal: No nausea vomiting or diarrhea - Endocrine: No polyuria polydipsia no heat intolerance - Genitourinary: No dysuria , no blood in urine Physical Exam General: No acute distress HEENT: No acute findings Neck: Supple Respiratory system: Able to talk in full sentences, no audible wheeze Cardiovascular: S1-S2 regular in rate and rhythm Gastrointestinal: No pain Extremities: Pain behind the right knee, over the Lucas's cyst , range of motion intact no swelling [employer]: Alert awake oriented x3 motor sensory intact Skin: Normal turgor PFSH Medical History Depression Hyperlipemia History of breast cancer Hypothyroidism Surgical History History of hysterectomy History of appendectomy Family History Other Mental health disorder Substance use disorder Social History Housing: Condominium Alcohol intake: never Patient Tobacco Use Status: Never used Tobacco e-Cigarette/Vaping Use: Never Used service: No Current occupational status: employed 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 32776 - PHQ-9 Billing: Patient declined-do not bill Source: Developed by Drs. Charli Webster, Karla Poole, Ed Quintero and colleagues, with an educational jnei from [employer]. Thrive Questionnaire Date Thrive assessed: 07/05/24 AUDIT C Alcohol Use Questionnaire (AUDIT-C) 1. How often do you have a drink containing alcohol?: 2-4 times a month 2. How many drinks containing alcohol do you have on a typical day when you are drinking?: 1 or 2 3. How often do you have six or more drinks on one occasion?: Less than monthly Total Score: 3 Score Reviewed/Action Taken: Yes LADY-7 AMB Questionnaire LADY-7 Date LADY - 7 assessed: 03/31/24 Source: Developed by Drs. Charli Webster, Karla Poole, Ed Quintero and colleagues, with an educational jeni from [employer]. Physical exam (Primary Care) Vital Signs: Last Vital Signs Pulse 78 07/05/24 11:15 BP 120/64 07/05/24 11:15 Pulse Ox 96 07/05/24 11:15 Oxygen Delivery Method Room Air 07/05/24 11:15 BMI result Body Mass Index 27.8 Tobacco/Smoking Status: Tobacco use Status Tobacco use date assessed 07/05/24 07/05/24 11:24 Patient Tobacco Use Status Never used Tobacco 07/05/24 11:13 e-Cigarette/Vaping Use Never Used 07/05/24 11:13 Thrive Assessment: Date of Thrive Assessment Date Thrive assessed 07/05/24 07/05/24 11:24 Coding Level of Care Code Est Pt Level 5 (55235) Diagnoses Hospital discharge follow-up Z09 Recurrent chest pain R07.9 Posterior right knee pain M25.561 Limitation of activities due to musculoskeletal disorder Z73.6; M79.9 Time Spent (min) 40 Comment Reviewing chart hospital notes/[id number]/coordination of care Assessment & Plan Assessment & Plan (1) Hospital discharge follow-up: Code(s): Z09 - Encounter for follow-up examination after completed treatment for conditions other than malignant neoplasm Category: Medical (2) Recurrent chest pain: Code(s): R07.9 - Chest pain, unspecified Category: Medical (3) Posterior right knee pain: Code(s): M25.561 - Pain in right knee Category: Medical (4) Limitation of activities due to musculoskeletal disorder: Code(s): Z73.6 - Limitation of activities due to disability; M79.9 - Soft tissue disorder, unspecified Category: Medical Plan Patient is 69-year-old female came in today for follow-up after visiting emergency room on 07/03/2024 Patient has a history of hypothyroidism, presented to emergency room with a history of acute chest pain, 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 Associated with dizziness cold sweats and shortness a breath EMS was called in she received aspirin while coming to emergency room Her chest pain resolved prior to arrival. Patient is nonsmoker She has a family history of coronary artery disease Her labs showed no leukocytosis no anemia no electrolyte abnormality, and troponins were negative x2 EKG showed normal sinus rhythm rate of 83 beats per minute no ischemic changes QTC 453 Chest x-ray showed no consolidation or effusion After examination patient was discharged with a diagnosis of noncardiac chest pain Only medication she is taking is levothyroxine 50 mcg Patient also have persistent pain behind the right knee. - The patient has had persistent pain behind the right knee since April, correlating with a history of falling and subsequent episodes. - Knee pain is persistent and present primarily during rest or when lying down, with decreased severity when ambulating. - The patient's history includes previous knee surgery and the presence of a Lucas's cyst under the tendon, which was suspected to be inflamed. - The patient is able to walk on a treadmill without issues, which she performs routinely. Problem List - Pain behind the right knee possibly due to Lucas's cyst - History of fall leading to persistent knee pain earlier this year - History of knee surgery - Familial history of congestive heart failure - recurrent chest pains Patient Instructions - Take ibuprofen as needed for pain management. - Avoid pushing or pulling obese patients at work to prevent exacerbation of symptoms. Letter provided for work - Ensure adequate rest and refrain from strenuous activities that may strain the knee. - Attend the scheduled stress test at the cardiology lab, as instructed. Orders: Orders CA stress test Today R07.9 - Chest pain, unspecified
[2024-07-05 11:15] VITALS: BP 120/64; PULSE 78; O2SAT 96; BMI 27.8
== END 2024-07-05 12:46 | disposition home or self-care (01) ==
LOC: HO.HMCC 11:09
PROVIDERS: PCP Internal Medicine; Visit Provider Internal Medicine
DX: R07.9 Chest pain, unspecified (principal); M25.561 Pain in right knee; Z73.6 Limitation of activities due to disability; M79.9 Soft tissue disorder, unspecified; Z09 Encounter for follow-up examination after completed treatment for conditions other than malignant neoplasm

== ENCOUNTER → 2024-07-05 11:09 | Outpatient (BNVA) | payer MEDICARE, SELFPAY | PROVIDERS: PCP Internal Medicine; Visit Provider Internal Medicine | DX: Z09 Encounter for follow-up examination after completed treatment for conditions other than malignant neoplasm (principal); R07.9 Chest pain, unspecified; M25.561 Pain in right knee; M79.9 Soft tissue disorder, unspecified; Z73.6 Limitation of activities due to disability | CPT/HCPCS: 99212 ==

== ENCOUNTER 2024-07-13 08:19 | Outpatient (AMB) | payer MEDICARE, SELFPAY ==
--- NOTE | 2024-07-13 08:24 | A.OFFPC_ITS ---
Intake Visit Reasons: FMLA Paperwork Allergies lactose [Lactose] Allergy (Mild, Verified 07/13/24 08:39) DIARRHEA morphine [Morphine] Allergy (Mild, Verified 07/13/24 08:39) HIVES, itching ciprofloxacin [Cipro] Allergy (Unknown, Verified 07/13/24 08:39) eye swelling, itching Latex Exam Gloves Allergy (Unknown, Uncoded 07/13/24 08:39) itching NUTS Allergy (Unknown, Uncoded 07/13/24 08:39) itching Medication List - Last Reconciled 07/13/24 by Dexter Garcia MD levothyroxine 50 mcg PO DAILY 90 days Tobacco use date assessed: 07/13/24 Fall risk assessment: No Falls in past year Last assessed Fall Risk: 07/13/24 Dental Screening Dental Screen Date: 07/13/24 Did you have a dental visit in the last 12 months?: Yes Did you have a dental problem in the last 6 months where you did not have access to dental care?: No Was dental information given to patient?: Patient has dentist HPI FMLA Paperwork HPI Details currently 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 PFSH Medical History Depression Hyperlipemia History of breast cancer Hypothyroidism Surgical History History of hysterectomy History of appendectomy Family History Other Mental health disorder Substance use disorder Social History Housing: Condominium Alcohol intake: never Patient Tobacco Use Status: Never used Tobacco e-Cigarette/Vaping Use: Never Used service: No Current occupational status: employed 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, 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 Sexual orientation: Straight/Heterosexual Gender identity: Female Cognitive needs: No Hearing needs: No Vision needs: No Questionnaire Thrive Questionnaire Date Thrive assessed: 03/31/24 I am a: Patient What is your living situation today?: I have a steady place to live Within the past 12 months, did the food you bought not last and you didn't have the money to get more?: Never true Within the past 12 months, did you worry whether your food would run out before you got money to buy more?: Never true Do you have trouble paying for medicines?: No Do you have trouble getting transportation to medical appointments?: No Do you have trouble paying your heating and electricity bill?: No Do you have trouble taking care of your child, family member or friend?: No Do you have trouble with day-to-day activities such as bathing, preparing meals, shopping, managing finances, etc.?: No Are you currently unemployed and looking for a job?: No Are you interested in more education?: No Please select the resources that you would like help with: None Currently or been in a relationship where the following occur: No concerns reported THRIVE Score: 0 LADY-7 AMB Questionnaire LADY-7 Date LADY - 7 assessed: 03/31/24 Source: Developed by Drs. Charli Webster, Karla Poole, Ed Quintero and colleagues, with an educational jeni from [employer]. Review of Systems Const Denies chills and Denies fever(s) ENT Denies epistaxis and Denies nasal discharge Card Denies chest pain Resp Denies chest congestion, Denies cough and Denies hemoptysis GI Denies diarrhea and Denies nausea Skin/Breast Denies rash Neuro Reports no additional complaints Psych Reports no additional complaints Endo Reports no additional complaints Physical exam (Primary Care) Tobacco/Smoking Status: Tobacco use Status Tobacco use date assessed 07/13/24 07/13/24 08:39 Patient Tobacco Use Status Never used Tobacco 07/13/24 08:25 e-Cigarette/Vaping Use Never Used 07/13/24 08:25 Thrive Assessment: Date of Thrive Assessment Date Thrive assessed 03/31/24 07/13/24 08:25 Currently or been in a relationship where the following occur: No concerns reported Telehealth Telehealth Telehealth Platform: [facility] Location of provider rendering services: practice address Location of patient: address on file Patient Identification confirmed using: Name, : Yes Telehealth method: voice only Patient verbally consented to treatment: Yes Patient verbally consented to billing insurance company: Yes Patient informed of any privacy concerns related to visit: Yes Minutes spent on Phone/Video with Pt.: 13 Coding Level of Care Code Tele Est Pt Level 3 (28072) Diagnoses Precordial pain R07.2 Chest pain type: precordial pain Assessment & Plan Assessment & Plan (1) Chest pain: Code(s): R07.9 - Chest pain, unspecified Category: Medical Qualifiers: Chest pain type: precordial pain Qualified Code(s): R07.2 - Precordial pain Plan currently 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
== END 2024-07-13 09:47 | disposition home or self-care (01) ==
LOC: HO.HMCC 08:19
PROVIDERS: PCP Internal Medicine; Visit Provider Internal Medicine
DX: R07.2 Precordial pain (principal)

== ENCOUNTER → 2024-07-13 08:19 | Outpatient (BNVA) | payer MEDICARE, SELFPAY | PROVIDERS: PCP Internal Medicine; Visit Provider Internal Medicine | DX: Z13.89 Encounter for screening for other disorder (principal) ==

== ENCOUNTER → 2024-07-31 10:22 | Outpatient (REF) | payer MEDICARE, SELFPAY ==
--- NOTE | 2024-07-31 10:27 | CA_ITS ---
Acquisition Time: 2024-07-31 10:36:24 Total Exercise Time: 00:05:00 Test Indications: CP Medications: LEVOTHYROXINE Protocol: TOBI Max HR: 153 BPM 102% of Pred: 150 BPM Max BP: 192/70 mmHG Max Work Load: 7.0 METS Exercise stress test with exercise 5 mins of Tobi Protocol, achieving 102% MPHR, with reports of mild SOB and lightheadedness, without any arrythmias, with normotensive response to exercise - max BP 192/70. Without EKG changes meeting criteria for ischemia. In recovery, BP improved quickly. Pt feeling back to baseline. Recommend stress echo to further evaluate the lightheadedness. Test reviewed with Dr. Mcgarry. Referred By: Dexter Garcia Electronically Signed By: Romie Fox
== END ==
LOC: HO.CARD 10:22
PROVIDERS: PCP Internal Medicine; Visit Provider Internal Medicine
DX: R07.9 Chest pain, unspecified (principal)
CPT/HCPCS: 93017

== ENCOUNTER → 2024-07-31 10:27 | Outpatient (BNV) | payer MEDICARE, SELFPAY | PROVIDERS: PCP Internal Medicine | DX: R06.02 Shortness of breath (principal) | CPT/HCPCS: 93016; 93018 ==

== ENCOUNTER 2024-08-03 08:53 | Outpatient (AMB) | payer MEDICARE, SELFPAY ==
--- NOTE | 2024-08-03 10:15 | A.OFFPC_ITS ---
Intake Visit Reasons: Discuss Stress Test Allergies lactose [Lactose] Allergy (Mild, Verified 07/13/24 08:39) DIARRHEA morphine [Morphine] Allergy (Mild, Verified 07/13/24 08:39) HIVES, itching ciprofloxacin [Cipro] Allergy (Unknown, Verified 07/13/24 08:39) eye swelling, itching Latex Exam Gloves Allergy (Unknown, Uncoded 07/13/24 08:39) itching NUTS Allergy (Unknown, Uncoded 07/13/24 08:39) itching Medication List - Last Reconciled 08/03/24 by Dexter Garcia MD levothyroxine 50 mcg PO DAILY 90 days Tobacco use date assessed: 07/13/24 Dental Screening Dental Screen Date: 07/13/24 HPI Discuss Stress Test HPI Details . History - The patient is a 69-year-old female pr esenting for follow-up regarding stress test results and evaluation of knee pain. - During a recent stress test, the patie nt experienced lightheadedness and shortness of breath. The test results were inconclusive, leading to the need for further evaluation with a stress echocardiogram. - The patient reports persistent right k nee pain, which began following a fall incident associated with an episode of syncope in April. This fall exacerbated a pre-existing meniscus injury which was sustained years ago. - Imaging during a previous visit reveal ed the presence of a popliteal cyst. 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 Problem List - inconclusive cardiac stress test - Right Knee Pain Secondary to Previous Meniscus Injury - Popliteal Cyst - Possible Adverse Reaction to Levothyro xine Patient Instructions - Expect phone calls to schedule appoint ments with a behavioral school counselors and fire protection specialist, as well as the stress echocardiogram. - Explained to patients daugter , that Angelica require further testing for additional clarity on cardiac health. - Communicate with your pharmacy about l evothyroxine to ensure you receive the preferable brand; contact your healthcare provider if the pharmacy requires an updated prescription. Review of Systems - General: No fever no chills - Neurological: No headaches no dizziness - Ear nose throat: No sore throat no hearing difficulty no ear pain - Gastrointestinal: No nausea vomiting or diarrhea PFSH Medical History Depression Hyperlipemia History of breast cancer Hypothyroidism Surgical History History of hysterectomy History of appendectomy Family History Other Mental health disorder Substance use disorder Social History Housing: Condominium Alcohol intake: never Patient Tobacco Use Status: Never used Tobacco e-Cigarette/Vaping Use: Never Used service: No Current occupational status: employed 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 Charli Webster, Karla Poole, Ed Quintero and colleagues, with an educational jeni from [employer]. Physical exam (Primary Care) Tobacco/Smoking Status: Tobacco use Status Tobacco use date assessed 07/13/24 08/03/24 10:16 Patient Tobacco Use Status Never used Tobacco 08/03/24 10:16 e-Cigarette/Vaping Use Never Used 08/03/24 10:16 Thrive Assessment: Date of Thrive Assessment Date Thrive assessed 03/31/24 08/03/24 10:16 Telehealth Telehealth Telehealth Platform: [facility] Location of provider rendering services: practice address Location of patient: address on file Patient Identification confirmed using: Name, : Yes Telehealth method: video (attempted) Patient verbally consented to treatment: Yes Patient verbally consented to billing insurance company: Yes Patient informed of any privacy concerns related to visit: Yes Minutes spent on Phone/Video with Pt.: 30 Coding Level of Care Code Tele Est Pt Level 4 (20771) Diagnoses Abnormal stress test R94.39 Posterior right knee pain M25.561 Comment first talked to patient , then daughter again explained Assessment & Plan Assessment & Plan (1) Abnormal stress test: Code(s): R94.39 - Abnormal result of other cardiovascular function study Category: Medical (2) Posterior right knee pain: Code(s): M25.561 - Pain in right knee Category: Medical Plan . History - The patient is a 69-year-old female presenting for follow-up regarding stress test results and evaluation of knee pain. - During a recent stress test, the patient experienced lightheadedness and shortness of breath. The test results were inconclusive, leading to the need for further evaluation with a stress echocardiogram. - The patient reports persistent right knee pain, which began following a fall incident associated with an episode of syncope in April. This fall exacerbated a pre-existing meniscus injury which was sustained years ago. - Imaging during a previous visit revealed the presence of a popliteal cyst. 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 Problem List - inconclusive cardiac stress test - Right Knee Pain Secondary to Previous Meniscus Injury - Popliteal Cyst - Possible Adverse Reaction to Levothyroxine Patient Instructions - Expect phone calls to schedule appointments with a behavioral school counselors and fire protection specialist, as well as the stress echocardiogram. - Explained to patients gabriela , that Angelica require further testing for addit ional clarity on cardiac health. - Communicate with your pharmacy about levothyroxine to ensure you receive the preferable brand; contact your healthcare provider if the pharmacy requires an updated prescription. Orders: Orders CA Dobutamine Stress Echo Today R94.39 - Abnormal result of other cardiovascular function study Referrals Cardiology Referral R94.39 - Abnormal result of other cardiovascular function study Orthopedics Referral M25.561 - Pain in right knee
== END 2024-08-03 15:21 | disposition home or self-care (01) ==
LOC: HO.HMCC 08:53
PROVIDERS: PCP Internal Medicine; Visit Provider Internal Medicine
DX: R94.39 Abnormal result of other cardiovascular function study (principal); M25.561 Pain in right knee

== ENCOUNTER → 2024-08-03 08:53 | Outpatient (BNVA) | payer MEDICARE, SELFPAY | PROVIDERS: PCP Internal Medicine; Visit Provider Internal Medicine | DX: Z13.89 Encounter for screening for other disorder (principal) ==

== ENCOUNTER 2024-08-08 12:30 | Outpatient (AMB) | payer MEDICARE, SELFPAY ==
[2024-08-08 12:36] VITALS: BP 140/80; PULSE 96; TEMP 36.6; O2SAT 95; BMI 27.8
--- NOTE | 2024-08-08 12:36 | MHC.OFFWIV ---
Intake Vital Signs 08/08/24 12:36 Height 5 ft 4 in Weight 162 lb BMI 27.8 BP 140/80 H Blood Pressure Location Rt brachial Position Sitting Pulse 96 Pulse Source Pulse Oximeter Temp 97.8 F Temp Source Oral Pulse Oximetry (%) 95 Oxygen Delivery Method Room Air Intake Visit Reasons: EP-lt foot swollen & pain from a fall no WC or MV Patient Tobacco Use Status: Never used Tobacco Allergies lactose [Lactose] Allergy (Mild, Verified 08/08/24 12:36) DIARRHEA morphine [Morphine] Allergy (Mild, Verified 08/08/24 12:36) HIVES, itching ciprofloxacin [Cipro] Allergy (Unknown, Verified 08/08/24 12:36) eye swelling, itching Latex Exam Gloves Allergy (Unknown, Uncoded 07/13/24 08:39) itching NUTS Allergy (Unknown, Uncoded 07/13/24 08:39) itching Medication List - Last Reconciled 08/08/24 by Dexter Garcia MD levothyroxine 50 mcg PO DAILY 90 days Do you need a note to return to daycare/school/sports/work: No HPI EP-lt foot swollen & pain from a fall no WC or MV HPI Details History - The patient is a 69-year-old female presenting with evaluation following a fall resulting in left ankle pain - The fall occurred yesterday when the patient slipped from four steps while doing laundry hurriedly while wearing sandals. - The patient reports experiencing significant pain and noticeable swelling in the left ankle since the incident. - There was also a scrape on the left knee, but the primary concern is the left ankle. - The patient has been managing the symptoms with Epsom salt soaks and ice application. - The patient expresses anxiety about returning to work due to these injuries and mentions swollen lateral ankle with limited movement. - patient has mobility limitations but is capable of walking, albeit with pain. Problem List - Contusion and sprain of the left ankle - Abrasion of the left knee Patient Instructions - Rest the left ankle and avoid activities that may aggravate the injury. - Follow up with an x-ray of the left ankle for further evaluation. - Utilize Alexis wrap as instructed after assessment. - Take a work leave of at least one week to allow for healing. - Return for a follow-up appointment as scheduled to assess the recovery. Review of Systems - General: No fever no chills - Neurological: No headaches no dizziness - Ear nose throat: No sore throat no hearing difficulty no ear pain - Cardiovascular: No syncope, no chest pain, no palpitations - Gastrointestinal: No nausea vomiting or diarrhea Physical Exam General: No acute distress HEENT: No acute findings Neck: Supple Respiratory system: Able to talk in full sentences, no audible wheeze Cardiovascular: S1-S2 regular in rate and rhythm Gastrointestinal: No pain Extremities: Swollen left ankle, slight swelling on the lateral side,ainful to movement , scrape on the knee 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 motor sensory intact Skin: Normal turgor PFSH Medical History Depression Hyperlipemia History of breast cancer Hypothyroidism Surgical History History of hysterectomy History of appendectomy Family History Other Mental health disorder Substance use disorder Social History Housing: Condominium Alcohol intake: never Patient Tobacco Use Status: Never used Tobacco e-Cigarette/Vaping Use: Never Used service: No Current occupational status: employed 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, 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 Sexual orientation: Straight/Heterosexual Gender identity: Female Cognitive needs: No Hearing needs: No Vision needs: No Physical Exam Vital Signs: Last Vital Signs Temp 97.8 F 08/08/24 12:36 Pulse 96 08/08/24 12:36 BP 140/80 H 08/08/24 12:36 Pulse Ox 95 08/08/24 12:36 Oxygen Delivery Method Room Air 08/08/24 12:36 BMI result Body Mass Index 27.8 Assessment & Plan Assessment & Plan (1) Left ankle injury: Code(s): S99.912A - Unspecified injury of left ankle, initial encounter Qualifiers: Encounter type: initial encounter Qualified Code(s): S99.912A - Unspecified injury of left ankle, initial encounter (2) Ankle pain, left: Code(s): M25.572 - Pain in left ankle and joints of left foot Qualifiers: Chronicity: acute Qualified Code(s): M25.572 - Pain in left ankle and joints of left foot (3) Fall: Code(s): W19.XXXA - Unspecified fall, initial encounter Qualifiers: Encounter type: initial encounter Qualified Code(s): W19.XXXA - Unspecified fall, initial encounter (4) Abrasion of knee, left: Code(s): S80.212A - Abrasion, left knee, initial encounter Qualifiers: Encounter type: initial encounter Qualified Code(s): S80.212A - Abrasion, left knee, initial encounter Plan History - The patient is a 69-year-old female presenting with evaluation following a fall resulting in left ankle pain - The fall occurred yesterday when the patient slipped from four steps while doing laundry hurriedly while wearing sandals. - The patient reports experiencing significant pain and noticeable swelling in the left ankle since the incident. - There was also a scrape on the left knee, but the primary concern is the left ankle. - The patient has been managing the symptoms with Epsom salt soaks and ice application. - The patient expresses anxiety about returning to work due to these injuries and mentions swollen lateral ankle with limited movement. - patient has mobility limitations but is capable of walking, albeit with pain. Problem List - Contusion and sprain of the left ankle - Abrasion of the left knee Patient Instructions - Rest the left ankle and avoid activities that may aggravate the injury. - Follow up with an x-ray of the left ankle for further evaluation. - Utilize Alexis wrap as instructed after assessment. - Take a work leave of at least one week to allow for healing. - Return for a follow-up appointment as scheduled to assess the recovery. Orders: Orders XR ankle LT 2V Today M25.572 - Pain in left ankle and joints of left foot, S99.912A - Unspecified injury of left ankle, initial encounter Coding Level of Care Code Est Pt Level 4 (12181) Diagnoses Injury of left ankle, initial encounter S99.912A Encounter type: initial encounter Acute left ankle pain M25.572 Chronicity: acute Fall, initial encounter W19.XXXA Encounter type: initial encounter Abrasion of left knee, initial encounter S80.212A Encounter type: initial encounter
== END 2024-08-08 14:28 | disposition home or self-care (01) ==
PROVIDERS: PCP Internal Medicine; Visit Provider Internal Medicine
DX: S99.912A Unspecified injury of left ankle, initial encounter (principal); M25.572 Pain in left ankle and joints of left foot; W19.XXXA Unspecified fall, initial encounter; S80.212A Abrasion, left knee, initial encounter

== ENCOUNTER 2024-08-08 12:30 | Outpatient (REF) | payer MEDICARE, SELFPAY ==
--- NOTE | ~2024-08-08 | XR_ITS ---
EXAMINATION: XR ANKLE, LEFT CLINICAL INFORMATION: S99.912A - Unspecified injury of left ankle, initial encounter COMPARISON: None available. TECHNIQUE: AP, lateral, and mortise views of the left ankle. FINDINGS: No fracture. Alignment is anatomic. No erosions. Joint spaces are maintained. Mortise is intact. Talar dome is normal. Subtalar joints and continues appear normal. No evidence of ankle joint effusion Normal soft tissues. XR/XR ankle LT min 3V IMPRESSION: No acute bony abnormalities of the left ankle. Electronically signed by: Braxton Davila MD 08/08/2024 01:31 PM EDT
== END 2024-08-08 12:31 | disposition home or self-care (01) ==
LOC: HO.HMGCX 12:30
PROVIDERS: PCP Internal Medicine; Visit Provider Internal Medicine
DX: S99.912A Unspecified injury of left ankle, initial encounter (principal); S80.212A Abrasion, left knee, initial encounter; W19.XXXA Unspecified fall, initial encounter
CPT/HCPCS: 73610; 99212

== ENCOUNTER → 2024-08-08 13:03 | Outpatient (BNV) | payer MEDICARE, SELFPAY | PROVIDERS: PCP Internal Medicine; Visit Provider Radiology Diagnostic Radiology | DX: S99.912A Unspecified injury of left ankle, initial encounter (principal) | CPT/HCPCS: 73610 ==

== ENCOUNTER 2024-08-16 12:00 | Outpatient (AMB) | payer MEDICARE, SELFPAY ==
[2024-08-16 12:10] VITALS: BP 140/80; PULSE 75; O2SAT 94; BMI 28.9
--- NOTE | 2024-08-16 12:10 | A.OFFPC_ITS ---
Vital Signs 08/16/24 12:10 Height 5 ft 4 in Weight 168 lb 6 oz BMI 28.9 BP 140/80 H Blood Pressure Location Rt brachial Position Sitting Pulse 75 Pulse Source Pulse Oximeter Pulse Oximetry (%) 94 Oxygen Delivery Method Room Air Intake Visit Reasons: Walk In f/up Allergies lactose [Lactose] Allergy (Mild, Verified 08/16/24 12:12) DIARRHEA morphine [Morphine] Allergy (Mild, Verified 08/16/24 12:12) HIVES, itching ciprofloxacin [Cipro] Allergy (Unknown, Verified 08/16/24 12:12) eye swelling, itching Latex Exam Gloves Allergy (Unknown, Uncoded 08/16/24 12:12) itching NUTS Allergy (Unknown, Uncoded 08/16/24 12:12) itching Medication List - Last Reconciled 08/16/24 by Dexter Garcia MD levothyroxine 50 mcg PO DAILY 90 days Tobacco use date assessed: 08/16/24 Fall risk assessment: No Falls in past year Last assessed Fall Risk: 08/16/24 Dental Screening Dental Screen Date: 08/16/24 Did you have a dental visit in the last 12 months?: No Did you have a dental problem in the last 6 months where you did not have access to dental care?: No Was dental information given to patient?: Patient has dentist HPI Walk In f/up HPI Details History - The patient is a 69-year-old female pr esenting with exacerbation of right knee pain. - Patient initially presented on August 08t h following a fall while doing laundry in the basement. - Initial pain was in the left ankle wit h subsequent evaluation through X-ray indicating no fractures; advised to manage with FABIAN wrap and activity modification. - Currently reports persistent soreness in the left ankle, though improved from initial presentation, not yet at baseline function. - Right knee previously injured with men iscus involvement now exhibits recurrent pain exacerbated by the initial fall in July. - Patient reports applying ice to the [facility] knee nightly due to ongoing pain and discomfort. - Scheduled to see a radio frequency technician on Aug and awaiting an orthopedic appointment on October 17 for the knee pain. - Discussed difficulties returning to wo rk pending cardiac evaluation and extended leave paperwork. extension of [place] paper work filled from 08/09/24 till September 15/2025 Patient would like to start therapy she will meet with our behavior health coordinator today, she has been feeling depressed Problem List - Left Ankle Pain - Right Knee Pain - History of Meniscus Injury - extension of work leave paperwork Patient Instructions - Call the orthopedic office to request placement on the cancellation list for potential earlier appointment availability. - Continue current home care of icing th e right knee as needed. - FMLA paperwork extended till 09/15/2024 from 08/09/2024. - Inform the office if physical therapy for the left ankle is desired at any time. - start psychotherapy Review of Systems - General: No fever no chills - Neurological: No headaches no dizziness - Ear nose throat: No sore throat no hearing difficulty no ear pain - Cardiovascular: No syncope, no chest pain, no palpitations - Gastrointestinal: No nausea vomiting or diarrhea - Endocrine: No polyuria polydipsia no heat intolerance - Genitourinary: No dysuria , no blood in urine Physical Exam General: No acute distress HEENT: No acute findings Neck: Supple Respiratory system: Able to talk in full sentences, no audible wheeze Cardiovascular: S1-S2 regular in rate and rhythm Gastrointestinal: No pain Extremities: Left ankle sore, but have full range of motion, right knee sore range of motion intact no swelling 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 intact Skin: Normal turgor PFSH Medical History Depression Hyperlipemia History of breast cancer Hypothyroidism Surgical History History of hysterectomy History of appendectomy Family History Other Mental health disorder Substance use disorder Social History Housing: Condominium Alcohol intake: never Patient Tobacco Use Status: Never used Tobacco e-Cigarette/Vaping Use: Never Used service: No Current occupational status: employed 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, 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 Sexual orientation: Straight/Heterosexual Gender identity: Female Cognitive needs: No Hearing needs: No Vision needs: No Questionnaire Thrive Questionnaire Date Thrive assessed: 03/31/24 I am a: Patient What is your living situation today?: I have a steady place to live Within the past 12 months, did the food you bought not last and you didn't have the money to get more?: Never true Within the past 12 months, did you worry whether your food would run out before you got money to buy more?: Never true Do you have trouble paying for medicines?: No Do you have trouble getting transportation to medical appointments?: No Do you have trouble paying your heating and electricity bill?: No Do you have trouble taking care of your child, family member or friend?: No Do you have trouble with day-to-day activities such as bathing, preparing meals, shopping, managing finances, etc.?: No Are you currently unemployed and looking for a job?: No Are you interested in more education?: No Please select the resources that you would like help with: None Currently or been in a relationship where the following occur: No concerns rep orted THRIVE Score: 0 AUDIT C Alcohol Use Questionnaire (AUDIT-C) 1. How often do you have a drink containing alcohol?: 2-4 times a month 2. How many drinks containing alcohol do you have on a typical day when you are drinking?: 1 or 2 3. How often do you have six or more drinks on one occasion?: Less than monthly Total Score: 3 Score Reviewed/Action Taken: Yes LADY-7 AMB Questionnaire LADY-7 Date LADY - 7 assessed: 03/31/24 Source: Developed by Drs. Charli Webster, Karla Poole, Ed Quintero and colleagues, with an educational jeni from [employer]. Physical exam (Primary Care) Vital Signs: Last Vital Signs Pulse 75 08/16/24 12:10 BP 140/80 H 08/16/24 12:10 Pulse Ox 94 08/16/24 12:10 Oxygen Delivery Method Room Air 08/16/24 12:10 BMI result Body Mass Index 28.9 Tobacco/Smoking Status: Tobacco use Status Tobacco use date assessed 08/16/24 08/16/24 12:12 Patient Tobacco Use Status Never used Tobacco 08/16/24 12:12 e-Cigarette/Vaping Use Never Used 08/16/24 12:12 Thrive Assessment: Date of Thrive Assessment Date Thrive assessed 03/31/24 08/16/24 12:12 Currently or been in a relationship where the following occur: No concerns reported Coding Level of Care Code Est Pt Level 4 (41600) Complex EM visit Add On G2211 Diagnoses Acute left ankle pain M25.572 Chronicity: acute Chronic pain of right knee M25.561; G89.29 Chronicity: chronic Depression, major, single episode, mild F32.0 Inability to participate in work activities Z56.89 Time Spent (min) 30 Comment [id number] with patient/paperwork Assessment & Plan Assessment & Plan (1) Ankle pain, left: Code(s): M25.572 - Pain in left ankle and joints of left foot Category: Medical Qualifiers: Chronicity: acute Qualified Code(s): M25.572 - Pain in left ankle and joints of left foot (2) Right knee pain: Code(s): M25.561 - Pain in right knee Category: Medical Qualifiers: Chronicity: chronic Qualified Code(s): M25.561 - Pain in right knee; G89.29 - Other chronic pain (3) Depression, major, single episode, mild: Code(s): F32.0 - Major depressive disorder, single episode, mild Category: Medical (4) Inability to participate in work activities: Code(s): Z56.89 - Other problems related to employment Category: Social Hx Plan History - The patient is a 69-year-old female presenting with exacerbation of right knee pain. - Patient initially presented on August 08 following a fall while doing laundry in the basement. - Initial pain was in the left ankle with subsequent evaluation through X-ray indicating no fractures; advised to manage with FABIAN wrap and activity modification. - Currently reports persistent soreness in the left ankle, though improved from initial presentation, not yet at baseline function. - Right knee previously injured with meniscus involvement now exhibits recurrent pain exacerbated by the initial fall in July. - Patient reports applying ice to the right knee nightly due to ongoing pain and discomfort. - Scheduled to see a radio frequency technician on September 15 and awaiting an orthopedic appointment on October 17 for the knee pain. - Discussed difficulties returning to work pending cardiac evaluation and extended leave paperwork. extension of FMLA paper work filled from 08/09/24 till September 15/2025 Patient would like to start therapy she will meet with our behavior health coordinator today, she has been feeling depressed Problem List - Left Ankle Pain - Right Knee Pain - History of Meniscus Injury - extension of work leave paperwork Patient Instructions - Call the orthopedic office to request placement on the cancellation list for potential earlier appointment availability. - Continue current home care of icing the right knee as needed. - [place] paperwork extended till 09/15/2024 from 08/09/2024. - Inform the office if physical therapy for the left ankle is desired at any time. - start psychotherapy
== END 2024-08-16 16:31 | disposition home or self-care (01) ==
LOC: HO.HMCC 12:01
PROVIDERS: PCP Internal Medicine; Visit Provider Internal Medicine
DX: M25.572 Pain in left ankle and joints of left foot (principal); M25.561 Pain in right knee; G89.29 Other chronic pain; F32.0 Major depressive disorder, single episode, mild; Z56.89 Other problems related to employment

== ENCOUNTER → 2024-08-16 12:00 | Outpatient (BNVA) | payer MEDICARE, SELFPAY | PROVIDERS: PCP Internal Medicine; Visit Provider Internal Medicine | DX: M25.561 Pain in right knee (principal); M25.572 Pain in left ankle and joints of left foot; G89.29 Other chronic pain; F32.0 Major depressive disorder, single episode, mild; Z71.89 Other specified counseling; Z56.89 Other problems related to employment; Z63.8 Other specified problems related to primary support group | CPT/HCPCS: 99212 ==

== ENCOUNTER → 2024-09-15 08:48 | Outpatient (REF) | payer MEDICARE, SELFPAY ==
--- NOTE | 2024-09-15 08:51 | CA_ITS ---
Acquisition Time: 2024-09-15 09:03:29 Total Exercise Time: 00:06:11 Test Indications: Abnormal Treadmill Test CP Medications: LEVOTHYROXINE Protocol: TOBI Max HR: 142 BPM 94% of Pred: 150 BPM Max BP: 184/74 mmHG Max Work Load: 7.0 METS Exercsie stress test with exercise 6 mins 11 secs of Tobi Protocol, achieving 94% MPHR, with reports of mild headache, no chest pain, with isolated PVCs, with normotensive response to exercise. Without EKG changes meeting criteria for ischemia. In early recovery, pt reported dizziness with a quick drop in SBP from 180 to 110. Dizziness and headche improved. Echo images were obtained by tech at rest and post peak exercise. Definity contrast utilized. Test reviewed with Dr. Brian. Referred By: Dexter Garcia Electronically Signed By: Romie Fox
--- OUTSIDE RECORDS SUMMARY | 2024-09-15 08:54 | XMS_ITS | Patient Health Record ---
[facility] Organization [facility] Address [address] [place] [address] Care Team Providers Care General Production Worker Name Role Phone Jose PEMBERTON, Asma Primary Care Provider Petar Bhandari Unavailable [phone] Allergies Allergen (clinical drug ingredient) Drug/Non Drug Allergy documented on EMR Reaction Allergy Type Onset Date Status keflex, ceftin, ceclor (uncoded) sick to stomach Allergy Active Penicillin hives Drug Allergy Active morphine Morphine hives Drug Allergy Active shellfish hives Drug Allergy Active latex hives Drug Allergy Active Reason For Referral No Information Medications Medication SIG (Take, Route, Frequency, Duration) Notes Start Date End Date Status Levothyroxine Sodium 50 MCG 1 tablet janelle ry morning on an empty stomach Orally Once a day for 30 day(s) Active Plan Of Treatment Pending Test Test Name Order Date X ray : Foot, left 2V 06/09/2011 X ray : Foot, right 2V 06/09/2011 Insurance Providers Payer Name Payer Address Payer Phone Subscriber Number Group Number Insured Name Patient Relationship to Insured Coverage Start Date Coverage End Date Medicare National [employer] [address] [facility] [place] [address] [id number] Angelica Gifford Self - patient is the insured Medical (General) History Medical History History ICD Code breast cancer Surgical History Surgery Date(Month/Year) breast surgery 2005
== END ==
LOC: HO.CARD 08:48
PROVIDERS: PCP Internal Medicine; Visit Provider Internal Medicine
DX: R94.39 Abnormal result of other cardiovascular function study (principal)
CPT/HCPCS: 93350; Q9957

== ENCOUNTER → 2024-09-15 08:51 | Outpatient (BNV) | payer MEDICARE, SELFPAY | PROVIDERS: PCP Internal Medicine | DX: R07.9 Chest pain, unspecified (principal); I49.3 Ventricular premature depolarization | CPT/HCPCS: 93016; 93018; 93350; 93352 ==

== ENCOUNTER 2024-09-21 13:42 | Outpatient (AMB) | payer MEDICARE, SELFPAY ==
[2024-09-21 14:00] VITALS: BP 124/78; BMI 27.5
--- NOTE | 2024-09-21 14:00 | A.OFFVIS_ITS ---
Vital Signs 09/21/24 14:00 Height 5 ft 4 in Weight 160 lb BMI 27.5 BP 124/78 Intake Visit Reasons: New patient Annual Intake Note: 12/13 Leep GREGOR 2 01/13 ascus +hpv colpo gregor 1 12/16 +hpv 01/15 gregor 1 Small Electric Engine Technician: Small Electric Engine Technician Present (Mili) Allergies lactose (Lactose) Allergy (Mild, Verified 09/21/24 14:00) DIARRHEA morphine (Morphine) Allergy (Mild, Verified 09/21/24 14:00) HIVES, itching ciprofloxacin (Cipro) Allergy (Unknown, Verified 09/21/24 14:00) eye swelling, itching Latex Exam Gloves Allergy (Unknown, Uncoded 08/16/24 12:12) itching NUTS Allergy (Unknown, Uncoded 08/16/24 12:12) itching HPI Comments Details: Patient is a postmenopausal woman presenting for her new patient annual home support worker examination. She is doing well with no home support worker concerns. Currently sexually active. Denies any vaginal dryness or irritation. Attempting to eat a healthy diet with calcium and vitamin D and stays active with exercise w/walking at work. History of hysterectomy due persistent abnormal Pap, history of GREGOR 2 and fibroids. Last mammogram; 2024. Denies any family history of breast or ovarian. FH colon cancer. [facility] Medical History GREGOR I (cervical intraepithelial neoplasia I) Depression Hyperlipemia History of breast cancer Hypothyroidism Surgical History H/O right breast biopsy H/O total hysterectomy with bilateral salpingo-oophorectomy (BSO) History of appendectomy Family History Sister Diabetes mellitus Mother CHF (congestive heart failure) Family/Other Colon cancer Other Mental health disorder Substance use disorder Social History Housing: Condominium Alcohol intake: current Alcohol intake frequency: holidays/special occasions only Patient Tobacco Use Status: Never used Tobacco e-Cigarette/Vaping Use: Never Used service: No Current occupational status: employed 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, 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 Sexual orientation: Straight/Heterosexual Gender identity: Female Cognitive needs: No Hearing needs: No Vision needs: No Female Reproductive History Menstrual Menopause type: surgical Total pregnancies: 7 Full term: 5 Number of Living Children: 5 Ab induced: 2 Review of Systems Const All systems reviewed & are unremarkable except as noted in HPI and below Reports as per HPI Eyes Reports no additional complaints ENT Reports no additional complaints Card Reports no additional complaints Resp Reports no additional complaints GI Reports as per HPI and Reports no additional complaints Reports as per HPI Musc Reports no additional complaints Skin/Breast Reports as per HPI Neuro Reports no additional complaints Psych Reports no additional complaints Endo Reports no additional complaints Johan/Lymph Reports no additional complaints Aller/Immun Reports no additional complaints Physical Exam Vital Signs: Last Vital Signs BP 124/78 09/21/24 14:00 BMI result Body Mass Index 27.5 Const General: cooperative, healthy appearing, no acute distress, well developed and alert Orientation/consciousness: patient oriented x3 HEENT Head: Yes normal to inspection Eyes General: appearance normal, both eyes and all related structures Neck Neck: Yes normal visual inspection Thyroid: Thyroid normal Chest Other: Scar right breast Chest palpation & inspection: normal inspection of the chest and other (no puckering, dimpling, peau de orange, retraction, discharge, masses) Breast/axilla inspection: normal inspection of the breasts Breast/axilla palpation: normal palpation of the breasts Resp Effort & Inspection: normal respiratory effort GI Inspection: Yes normal to inspection and Yes scar Palpation (GI): Soft to palpation Rectal Exam - Female: deferred General: Yes bladder normal to palpation External Female Exam: normal external appearance and normal appearance of the urethra Speculum Exam - Vagina: normal appearance of the vagina, normal palpation and normal vaginal discharge Speculum Exam - Cervix: Cervix absent (Vaginal cuff no lesions or nodules) Bimanual exam- vagina & uterus: normal bimanual exam, normal palpation, bladder normal to palpation and uterus absent Bimanual Exam- Adnexa, other: no masses Skin General skin exam: no rashes or lesions noted Rashes: no rashes Neuro General: patient oriented x3 Cognition (Neuro): normal cognition Extrem General: Yes normal to inspection Psych Attitude: cooperative Thought process: Normal thought process present Assessment & Plan Assessment & Plan (1) Encounter for well woman exam with routine gynecological exam: Code(s): Z01.419 - Encounter for gynecological examination (general) (routine) without abnormal findings Category: Medical (2) Encounter for routine gynecological examination: Code(s): Z01.419 - Encounter for gynecological examination (general) (routine) without abnormal findings Category: Medical Qualifiers: Gynecological examination findings: abnormal findings ABSENT Qualified Code(s): Z01.419 - Encounter for gynecological examination (general) (routine) without abnormal findings Plan Discussed: Current recommendations for pap smears per ASCCP guidelines. Breast awareness, periodic self breast exams and yearly mammogram. Replens moisturizer and lubrication use. Maintain a healthy lifestyle, well balanced diet including Calcium 1,200 mg and Vitamin D 600 IU daily, and routine exercise. Patient verbalizes understanding and agrees to the plan of care. She was given opportunity to ask questions and all questions were answered to the best of my ability. RTO in 1 year for annual home support worker exam. This note is constructed using voice recognition software. While every effort has been made to ensure accuracy, informatics manager errors may have been included. Coding Level of Care Code New Pt Prev Care >65yr (64348) Diagnoses Encounter for well woman exam with routine gynecological exam Z01.419 Encounter for gynecological examination without abnormal finding Z01.419 Gynecological examination findings: abnormal findings ABSENT
--- OUTSIDE RECORDS SUMMARY | 2024-09-21 16:34 | XMS_ITS | Patient Health Record ---
Author [facility] Address [address] [place] [address] Care Team Providers Care Electric Lineman Name Role Phone Jose PEMBERTON, Asma Primary Care Provider Petar Bhandari Unavailable [phone] Allergies Allergen (clinical drug ingredient) Drug/Non Drug [...] on an empty stomach Orally Once a day; Duration: 30 day(s) Active Plan Of Treatment Pending Test Test Name Order Date X ray : Foot, left 2V 06/09/2011 X ray : Foot, right 2V 06/09/2011 Insurance Providers Payer Name Payer Address Payer Phone Subscriber Number Group Number Insured Name Patient Relationship to Insured Coverage Start Date Coverage End Date Medicare National Govt Sv[employer] [address] [place] [address] [id number] Angelica Gifford Self - patient is the insured Medical (General) History Medical History History ICD Code breast cancer Surgical History Surgery Date(Month/Year) breast surgery 2005
== END 2024-09-21 14:39 | disposition home or self-care (01) ==
LOC: HO.HWS 13:43
PROVIDERS: PCP Internal Medicine; Visit Provider Advanced Practice Midwife
DX: Z01.419 Encounter for gynecological examination (general) (routine) without abnormal findings (principal)
CPT/HCPCS: 99387; 99459

== ENCOUNTER → 2024-09-21 13:42 | Outpatient (BNVA) | payer MEDICARE, SELFPAY | PROVIDERS: PCP Internal Medicine; Visit Provider Advanced Practice Midwife | DX: Z01.419 Encounter for gynecological examination (general) (routine) without abnormal findings (principal) | CPT/HCPCS: 99387 ==

== ENCOUNTER 2024-09-28 08:28 | Outpatient (AMB) | payer MEDICARE, SELFPAY ==
--- OUTSIDE RECORDS SUMMARY | 2024-09-28 08:32 | XMS_ITS | Patient Health Record ---
Author Organization [facility] Address [address] [place] [address] Care Team Providers Care Monologist Name Role Phone Jose PEMBERTON, Asma Primary Care Provider Petar Bhandari Unavailable [phone] Allergies Allergen (clinical drug ingredient) Drug/Non Drug [...] [employer] [address] [facility] [address] [id number] Angelica Gifford Self - patient is the insured Medical (General) History Medical History History ICD Code breast cancer Surgical History Surgery Date(Month/Year) breast surgery 2005
--- NOTE | 2024-09-28 09:00 | A.OFFPC_ITS ---
Intake Visit Reasons: return to work Allergies lactose (Lactose) Allergy (Mild, Verified 09/21/24 14:00) DIARRHEA morphine (Morphine) Allergy (Mild, Verified 09/21/24 14:00) HIVES, itching ciprofloxacin (Cipro) Allergy (Unknown, Verified 09/21/24 14:00) eye swelling, itching Latex Exam Gloves Allergy (Unknown, Uncoded 08/16/24 12:12) itching NUTS Allergy (Unknown, Uncoded 08/16/24 12:12) itching Medication List - Last Reconciled 09/28/24 by Dexter Garcia MD levothyroxine 50 mcg PO DAILY 90 days Tobacco use date assessed: 08/16/24 Dental Screening Dental Screen Date: 08/16/24 HPI return to work HPI Details History - The patient is a 69-year-old female pr esenting with knee pain and palpitations. - Initially, the patient had left ankle pain which led to a fall down the stairs, resulting in right knee pain. - The knee pain began after the fall and has persisted since that time. but has slightly improved she has apt coming up with ortho of this month - The patient has reported experiencing palpitations since September 15 of the previous month. - Exercise-induced ischemia was excluded via a cardiopulmonary stress test done on September 21, 2019. - The patient's knee pain has limited he r ability to return to work. - Currently, her time off work is extend ed from September 15 to mid-September for further evaluation of her knee pain by an database management specialist. Medical History: - Hypothyroidism, managed with levothyro xine 50 mcg. - No history of exercise-induced ischemi a as per cardiopulmonary stress test conducted on September 21, 2019. Medications: - Levothyroxine 50 mcg daily for hypothy roidism. Social History: - Currently on leave from work since Aug due to knee pain. - Anticipates returning to work once sincere luated and cleared by orthopedics. Diagnostic Results: - Cardiopulmonary stress test (September 21, 2019): No evidence of exercise-induced ischemia. Problem List - Right knee pain post-fall. - Palpitations. - Hypothyroidism. Patient Instructions - Follow up with orthopedic appointment on October 02. - Continue current medication for hypoth yroidism as prescribed. - Monitor knee pain and palpitations, an d report any worsening symptoms immediately. - note will be provided to be off from till September Review of Systems - General: No fever no chills - Neurological: No headaches no dizziness - Ear nose throat: No sore throat no hearing difficulty no ear pain - Cardiovascular: No syncope, no chest pain, no palpitations - Gastrointestinal: No nausea vomiting or diarrhea [facility] Medical History GREGOR I (cervical intraepithelial neoplasia I) Depression Hyperlipemia History of breast cancer Hypothyroidism Surgical History H/O right breast biopsy H/O total hysterectomy with bilateral salpingo-oophorectomy (BSO) History of appendectomy Family History Sister Diabetes mellitus Mother CHF (congestive heart failure) Family/Other Colon cancer Other Mental health disorder Substance use disorder Social History Housing: Condominium Alcohol intake: current Alcohol intake frequency: holidays/special occasions only Patient Tobacco Use Status: Never used Tobacco e-Cigarette/Vaping Use: Never Used service: No Current occupational status: employed 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 Charli Webster, Karla Poole, Ed Quintero and colleagues, with an educational jeni from [employer]. Physical exam (Primary Care) Tobacco/Smoking Status: Tobacco use Status Tobacco use date assessed 08/16/24 09/28/24 09:02 Patient Tobacco Use Status Never used Tobacco 09/28/24 09:02 e-Cigarette/Vaping Use Never Used 09/28/24 09:02 Thrive Assessment: Date of Thrive Assessment Date Thrive assessed 03/31/24 09/28/24 09:02 Telehealth Telehealth Telehealth Platform: [facility] Location of provider rendering services: practice address Location of patient: address on file Patient Identification confirmed using: Name, : Yes Telehealth method: video (attempted) Patient verbally consented to treatment: Yes Patient verbally consented to billing insurance company: Yes Patient informed of any privacy concerns related to visit: Yes Minutes spent on Phone/Video with Pt.: 13 Coding Level of Care Code Tele Est Pt Level 3 (21514) Diagnoses Acute left ankle pain M25.572 Chronicity: acute Chronic pain of right knee M25.561; G89.29 Chronicity: chronic Inability to participate in work activities Z56.89 Assessment & Plan Assessment & Plan (1) Ankle pain, left: Code(s): M25.572 - Pain in left ankle and joints of left foot Category: Medical Qualifiers: Chronicity: acute Qualified Code(s): M25.572 - Pain in left ankle and joints of left foot (2) Right knee pain: Code(s): M25.561 - Pain in right knee Category: Medical Qualifiers: Chronicity: chronic Qualified Code(s): M25.561 - Pain in right knee; G8 9.29 - Other chronic pain (3) Inability to participate in work activities: Code(s): Z56.89 - Other problems related to employment Category: Social Hx Plan History - The patient is a 69-year-old female presenting with knee pain and palpitations. - Initially, the patient had left ankle pain which led to a fall down the stairs, resulting in right knee pain. - The knee pain began after the fall and has persisted since that time. but has slightly improved she has apt coming up with ortho 7th of this month - The patient has reported experiencing palpitations since September 15 of the previous month. - Exercise-induced ischemia was excluded via a cardiopulmonary stress test done on September 21, 2019. - The patient's knee pain has limited her ability to return to work. - Currently, her time off work is extended from September 15 to mid-September for further evaluation of her knee pain by an database management specialist. Medical History: - Hypothyroidism, managed with levothyroxine 50 mcg. - No history of exercise-induced ischemia as per cardiopulmonary stress test conducted on September 21, 2019. Medications: - Levothyroxine 50 mcg daily for hypothyroidism. Social History: - Currently on leave from work since September 15 due to knee pain. - Anticipates returning to work once evaluated and cleared by orthopedics. Diagnostic Results: - Cardiopulmonary stress test (September 21, 2019): No evidence of exercise-induced ischemia. Problem List - Right knee pain post-fall. - Palpitations. - Hypothyroidism. Patient Instructions - Follow up with orthopedic appointment on October 02. - Continue current medication for hypothyroidism as prescribed. - Monitor knee pain and palpitations, and report any worsening symptoms immediately. - note will be provided to be off from September 15 till September
== END 2024-09-28 09:01 | disposition home or self-care (01) ==
LOC: HO.HMCC 08:28
PROVIDERS: PCP Internal Medicine; Visit Provider Internal Medicine
DX: M25.572 Pain in left ankle and joints of left foot (principal); M25.561 Pain in right knee; G89.29 Other chronic pain; Z56.89 Other problems related to employment

== ENCOUNTER 2024-10-02 07:26 | Outpatient (REF) | payer MEDICARE, SELFPAY ==
--- NOTE | ~2024-10-02 | XR_ITS ---
EXAMINATION: XR KNEE, RIGHT CLINICAL INFORMATION: M17.11 - Unilateral primary osteoarthritis, right knee COMPARISON: None available. TECHNIQUE: AP bilateral standing, lateral, and sunrise view of the right knee. FINDINGS: There is no joint effusion. There is mild narrowing of the medial joint compartment. There is chondrocalcinosis present in the lateral greater than medial meniscus. Small to moderate sized marginal osteophytes are evident along the medial joint line. There is mild lateral patellar femoral joint space narrowing. 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 Electronically signed by: Jhonny Arora MD 10/02/2024 12:36 PM EDT
== END 2024-10-02 07:27 | disposition home or self-care (01) ==
LOC: HO.HOSX 07:26
PROVIDERS: Visit Provider Physician Assistant
DX: M17.11 Unilateral primary osteoarthritis, right knee (principal); M25.561 Pain in right knee
CPT/HCPCS: 73562; 99212

== ENCOUNTER 2024-10-02 10:53 | Outpatient (AMB) | payer MEDICARE, SELFPAY ==
--- NOTE | 2024-10-02 11:11 | MHC.OFFVIS ---
Vital Signs 10/02/24 11:18 Height 5 ft 4 in Weight 160 lb BMI 27.5 Intake Visit Reasons: New prob-RT knee pain Intake Note: Angelica is a 69 year old female who presents today as an established patient for a new problem visit to evaluate her right knee pain. Patient was seen by her PCP where it was noted a previous injury to her knee and due to a recent fall on 08/07/24, her knee pain had significantly gotten worse. She was given an out of work note and referred to orthopedics to evaluate. Patient reports ongoing constant pain that is located at the posterior aspect of knee that radiates up to her thigh area. No other recent treatment. States she may have re-injured her meniscus, stating she had a meniscus repair surgery in 2002. Allergies lactose (Lactose) Allergy (Mild, Verified 10/02/24 11:18) DIARRHEA morphine (Morphine) Allergy (Mild, Verified 10/02/24 11:18) HIVES, itching ciprofloxacin (Cipro) Allergy (Unknown, Verified 10/02/24 11:18) eye swelling, itching Latex Exam Gloves Allergy (Unknown, Uncoded 10/02/24 11:18) itching NUTS Allergy (Unknown, Uncoded 10/02/24 11:18) itching HPI HPI New prob-RT knee pain: Details: 69 yo female presents to the office today for right knee pain x6 months. Denies injury. C/o pain along the posterior aspect that radiates up the thigh. She has discomfort along the right side of her hip with sleeping at night. She also has discomfort with going up and downstairs and prolonged walking. [facility] Medical History GREGOR I (cervical intraepithelial neoplasia I) Depression Hyperlipemia History of breast cancer Hypothyroidism Surgical History H/O right breast biopsy H/O total hysterectomy with bilateral salpingo-oophorectomy (BSO) History of appendectomy Family History Sister Diabetes mellitus Mother CHF (congestive heart failure) Family/Other Colon cancer Other Mental health disorder Substance use disorder Social History Housing: Condominium Alcohol intake: current Alcohol intake frequency: holidays/special occasions only Patient Tobacco Use Status: Never used Tobacco e-Cigarette/Vaping Use: Never Used service: No Current occupational status: employed 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, 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 Sexual orientation: Straight/Heterosexual Gender identity: Female Cognitive needs: No Hearing needs: No Vision needs: No Review of Systems Const All systems reviewed & are unremarkable except as noted in HPI and below Physical Exam Vital Signs: BMI result Body Mass Index 27.5 Const General: cooperative and no acute distress Orientation/consciousness: patient oriented x3 Resp Effort & Inspection: normal respiratory effort and able to speak in complete sentences Cardio Peripheral pulses: Peripheral pulses 2+ throughout Neuro General: patient oriented x3 Extrem Other: Right knee normal to inspection, Full ROM with crepitus. Pain along the lateral aspect of the knee. She has tenderness over the greater trochanteric bursa. NVI Results Reviewed Results Reviewed: Xrays were obtained in the office today and personally reviewed by me of the right knee show mild oa Assessment & Plan Assessment & Plan (1) Osteoarthritis of right knee: Code(s): M17.11 - Unilateral primary osteoarthritis, right knee Category: Medical Plan: We discussed options which include PT, NSAIDs and injections. She will defer on the injection today and proceed with PT and NSAIDs. She was fit for a patellar stabilizing knee brace in the office today. If symptoms persist she will contact me for an injection, otherwise, prn. Orders: Orders XR knee RT 3V Today M17.11 - Unilateral primary osteoarthritis, right knee Coding Level of Care Code New Pt Level 3 (80842) Complex EM visit Add On G2211 Diagnoses Osteoarthritis of right knee M17.11
[2024-10-02 11:18] VITALS: BMI 27.5
--- OUTSIDE RECORDS SUMMARY | 2024-10-02 11:50 | XMS_ITS | Patient Health Record ---
[facility] Address [address] [place] [address] Care Team Providers Care Financial Sales Assistant Name Role Phone Jose PEMBERTON, Asma Primary Care Provider Petar Bhandari Unavailable [phone] Allergies Allergen (clinical drug ingredient) Drug/Non Drug [...] [employer] [address] [facility] [place] [address] [id number] Angelica Gifford Self - patient is the insured Medical (General) History Medical History History ICD Code breast cancer Surgical History Surgery Date(Month/Year) breast surgery 2005
== END 2024-10-02 15:47 | disposition home or self-care (01) ==
LOC: HO.HOS 10:54
PROVIDERS: PCP Internal Medicine; Visit Provider Physician Assistant
DX: M17.11 Unilateral primary osteoarthritis, right knee (principal)
CPT/HCPCS: 99213; G2211

== ENCOUNTER → 2024-10-02 10:55 | Outpatient (BNV) | payer MEDICARE, SELFPAY | PROVIDERS: Visit Provider Radiology Diagnostic Radiology | DX: M17.11 Unilateral primary osteoarthritis, right knee (principal) | CPT/HCPCS: 73562 ==

== ENCOUNTER 2024-10-19 08:08 | Outpatient (AMB) | payer MEDICARE, SELFPAY ==
--- OUTSIDE RECORDS SUMMARY | 2024-10-19 08:15 | XMS_ITS | Patient Health Record ---
Author Organization [facility] Address [address] [place] [address] Care Team Providers Care Feed Adviser Name Role Phone Jose PEMBERTON, Asma Primary Care Provider Petar Bhandari Unavailable [phone] Allergies Allergen (clinical drug ingredient) Drug/Non Drug [...] [employer] [address] [place] [address] [id number] Angelica Gifford Self - patient is the insured Medical (General) History Medical History History ICD Code breast cancer Surgical History Surgery Date(Month/Year) breast surgery 2005
--- NOTE | 2024-10-19 08:50 | A.OFFPC_ITS ---
Intake Visit Reasons: fmla Allergies lactose (Lactose) Allergy (Mild, Verified 10/02/24 11:18) DIARRHEA morphine (Morphine) Allergy (Mild, Verified 10/02/24 11:18) HIVES, itching ciprofloxacin (Cipro) Allergy (Unknown, Verified 10/02/24 11:18) eye swelling, itching Latex Exam Gloves Allergy (Unknown, Uncoded 10/02/24 11:18) itching NUTS Allergy (Unknown, Uncoded 10/02/24 11:18) itching Medication List - Last Reconciled 10/19/24 by Dexter Gracia MD celecoxib (Celebrex) 200 mg PO BID 30 days levothyroxine 50 mcg PO DAILY 90 days Tobacco use date assessed: 08/16/24 Dental Screening Dental Screen Date: 08/16/24 HPI fmla HPI Details History - The patient is a 69-year-old female af ter seeing Ortho has gone back to work and dont need any FMLA paper work filled today she is today presenting with concerns about bunions on both feet. The patient expressed that she experiences problems with the bunions, located on the side of her big toes. The issue has led her to seek consultation with a cork slabs sawyer to explore potential interventions. - She reported having not previously und ergone a colonoscopy. This is due to past logistical challenges involving changes in residence and employment, which affected her insurance coverage. Her request for a colonoscopy is influenced by a family history of colon cancer, specifically a nephew currently battling stage 4 colon cancer. Problem List - Bunion - Screening for Colon Cancer (Colonoscop y referral) Patient Instructions - I will arrange appointments with a gas troenterologist for a colonoscopy and a cork slabs sawyer for evaluation of bunions. Review of Systems - General: No fever no chills - Neurological: No headaches no dizziness - Ear nose throat: No sore throat no hearing difficulty no ear pain - Cardiovascular: No syncope, no chest pain, no palpitations - Gastrointestinal: No nausea vomiting or diarrhea [facility] Medical History GREGOR I (cervical intraepithelial neoplasia I) Depression Hyperlipemia History of breast cancer Hypothyroidism Surgical History H/O right breast biopsy H/O total hysterectomy with bilateral salpingo-oophorectomy (BSO) History of appendectomy Family History Sister Diabetes mellitus Mother CHF (congestive heart failure) Family/Other Colon cancer Other Mental health disorder Substance use disorder Social History Housing: Condominium Alcohol intake: current Alcohol intake frequency: holidays/special occasions only Patient Tobacco Use Status: Never used Tobacco e-Cigarette/Vaping Use: Never Used service: No Current occupational status: employed 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 Charli Webster, Karla Poole, Ed Quintero and colleagues, with an educational jeni from [employer] Physical exam (Primary Care) Tobacco/Smoking Status: Tobacco use Status Tobacco use date assessed 08/16/24 10/19/24 08:52 Patient Tobacco Use Status Never used Tobacco 10/19/24 08:52 e-Cigarette/Vaping Use Never Used 10/19/24 08:52 Thrive Assessment: Date of Thrive Assessment Date Thrive assessed 03/31/24 10/19/24 08:52 Telehealth Telehealth Telehealth Platform: [facility] Location of provider rendering services: practice address Location of patient: address on file Patient Identification confirmed using: Name, : Yes Telehealth method: video (attempted) Patient verbally consented to treatment: Yes Patient verbally consented to billing insurance company: Yes Patient informed of any privacy concerns related to visit: Yes Minutes spent on Phone/Video with Pt.: 13 Coding Level of Care Code Tele Est Pt Level 3 (68490) Diagnoses Bilateral bunions M21.611; M21.612 Colon cancer screening Z12.11 Assessment & Plan Assessment & Plan (1) Bilateral bunions: Code(s): M21.611 - Bunion of right foot; M21.612 - Bunion of left foot Category: Medical (2) Colon cancer screening: Code(s): Z12.11 - Encounter for screening for malignant neoplasm of colon Category: Medical Plan History - The patient is a 69-year-old female after seeing Ortho has gone back to work and dont need any [employer] paper work filled today she is today presenting with concerns about bunions on both feet. The patient expressed that she experiences problems with the bunions, located on the side of her big toes. The issue has led her to seek consultation with a cork slabs sawyer to explore potential interventions. - She reported having not previously undergone a colonoscopy. This is due to past logistical challenges involving changes in residence and employment, which affected her insurance coverage. Her request for a colonoscopy is influenced by a family history of colon cancer, specifically a nephew currently battling stage 4 colon cancer. Problem List - Bunion - Screening for Colon Cancer (Colonoscopy referral) Patient Instructions - I will arrange appointments with a circular sawyer helper for a colonoscopy and a cork slabs sawyer for evaluation of bunions. Orders: Referrals Gastroenterology Referral Z12.11 - Encounter for screening for malignant neoplasm of colon Podiatry Referral M21.611 - Bunion of right foot, M21.612 - Bunion of left foot
== END 2024-10-19 11:52 | disposition home or self-care (01) ==
LOC: HO.HMCC 08:08
PROVIDERS: PCP Internal Medicine; Visit Provider Internal Medicine
DX: M21.611 Bunion of right foot (principal); M21.612 Bunion of left foot; Z12.11 Encounter for screening for malignant neoplasm of colon

== ENCOUNTER 2024-11-28 12:20 | Outpatient (REF) | payer MEDICARE, SELFPAY ==
[2024-11-28 16:11] LABS: MANUAL DIFF FLAG NO
[2024-11-28 16:22] LABS: Hematocrit 42.2 % (37.0-47.0); Hemoglobin 13.8 g/dl (12.0-16.0); Imm Gran Abs Auto 0.03 X10*3/uL (0.00-0.03); Imm Gran Pct Auto 0.4 % (0.0-0.4); Lymphocytes Absolute Auto 2.2 X10*3/uL (1.2-4.9); Mean Corpuscular HGB Conc 32.7 g/dl (31.0-35.0); Mean Corpuscular Hemoglobin 27.1 pg (27.0-33.0); Mean Corpuscular Volume 82.7 fL (80.0-98.0); NRBC Abs Auto 0.000 X10*3/uL (0.0-0.012); NRBC Pct Auto 0.0 /100WBC (0.0-0.2); Platelet Count 283 X10*3/uL (160-400); Red Blood Count 5.10 X10*6/uL (4.20-5.50); White Blood Count 8.5 X10*3/uL (4.8-10.8)
[2024-11-28 16:37] LABS: Alanine Aminotransferase 16 U/L (0-31); Albumin Level 4.5 g/dL (3.5-5.0); Alkaline Phosphatase 81 U/L (39-117); Anion Gap 13 (12-20); Aspartate Amino Transferase 25 U/L (5-31); Blood Urea Nitrogen 12 mg/dL (9-16); Calcium 9.3 mg/dL (8.4-10.2); Carbon Dioxide 29 mmol/L (22-29); Chloride 105 mmol/L (96-108); Estimated Glomerular Filt Rate > 60; Potassium 3.8 mmol/L (3.3-5.1); Sodium 143 mmol/L (135-145); Total Protein 7.4 g/dL (6.5-8.0)
== END 2024-11-28 12:21 | disposition home or self-care (01) ==
LOC: HO.HMGCLDS 12:20
PROVIDERS: PCP Internal Medicine; Visit Provider Internal Medicine
DX: Z00.01 Encounter for general adult medical examination with abnormal findings (principal); E03.8 Other specified hypothyroidism; Z79.890 Hormone replacement therapy
CPT/HCPCS: 36415; 80053; 83721; 84443; 85025; 99397

== ENCOUNTER 2024-11-28 12:20 | Outpatient (AMB) | payer MEDICARE, SELFPAY ==
--- NOTE | 2024-11-28 12:26 | MHC.PC.OV ---
Vital Signs 11/28/24 12:28 Height 5 ft 4 in Weight 166 lb BMI 28.5 BP 100/70 Blood Pressure Location Rt brachial Position Sitting Respiration 16 Pulse 71 Pulse Source Pulse Oximeter Temp 98.6 F Temp Source Oral Pulse Oximetry (%) 98 Oxygen Delivery Method Room Air Intake Visit Reasons: PE Allergies lactose (Lactose) Allergy (Mild, Verified 10/02/24 11:18) DIARRHEA morphine (Morphine) Allergy (Mild, Verified 10/02/24 11:18) HIVES, itching ciprofloxacin (Cipro) Allergy (Unknown, Verified 10/02/24 11:18) eye swelling, itching Latex Exam Gloves Allergy (Unknown, Uncoded 10/02/24 11:18) itching NUTS Allergy (Unknown, Uncoded 10/02/24 11:18) itching Medication List - Last Reconciled 11/28/24 by Dexter Garcia MD levothyroxine 50 mcg PO DAILY 90 days Tobacco use date assessed: 11/28/24 Fall risk assessment: 2 + Falls in past year Last assessed Fall Risk: 11/28/24 Dental Screening Dental Screen Date: 11/28/24 Did you have a dental visit in the last 12 months?: Yes Did you have a dental problem in the last 6 months where you did not have access to dental care?: Yes Was dental information given to patient?: Patient has dentist HPI PE HPI Details History of Present Illness The patient is a 69-year-old female presenting for a physical examination and medication refill for hypothyroidism. Hypothyroidism: - Needs refill of thyroid medication, levothyroxine 50 mcg, as the patient accidentally disposed of her medication. - Last taken some doses provided by her son, who takes the same medication and dose. Human Papillomavirus (HPV) Infection: - History of HPV leading to a hysterectomy due to progression into a precancerous state. - Continues to receive follow-up care from an OBGYN. Preventive Care Needs: - up-to-date on routine mammogram, August of this year - Due for Tetanus and Pneumonia vaccines, with previous Tetanus vaccine received in 2012. Due for shingles vaccine patient will have it from pharmacy - Awaiting a scheduled colonoscopy. Medical History: - Hypothyroidism - Human Papillomavirus (HPV) infection, precancerous - History of precancerous cervical lesions Surgical History: - Hysterectomy due to precancerous changes associated with HPV Health Maintenance - Routine mammogram due every six months - Overdue for tetanus vaccination since last received in 2012 - Due for pneumonia vaccine - Awaiting colonoscopy scheduled for January 15 [facility] - Continues follow-up with OBGYN [place] Medications - Levothyroxine 50 mcg, for hypothyroidism Patient Instructions - Get blood test and thyroid medication refilled at the pharmacy - get tetanus vaccine at pharmacy when picking up thyroid medication - Schedule pneumonia vaccine and shingles vaccine - Continue thyroid medication as prescribed - Return for a follow-up in one year - Await scheduled colonoscopy on January 15 Review of Systems - General: No fever no chills - Neurological: No headaches no dizziness - Ear nose throat: No sore throat no hearing difficulty no ear pain - Cardiovascular: No syncope, no chest pain, no palpitations - Gastrointestinal: No nausea vomiting or diarrhea - Endocrine: No polyuria polydipsia no heat intolerance - Genitourinary: No dysuria - Skin: No new complaints Physical Exam General: Cooperative, healthy appearing, comfortable, no acute distress Orientation: Patient oriented x3 Limitations: None Head: Normal to inspection Ears: Within normal limit visually Nose: Normal external nose present Face and sinus: Normal facial exam Eyes: Appearance normal, extraocular movement intact pupils reactive Neck: Normal visual inspection and supple Respiratory: Normal respiratory effort and able to speak in complete sentences. Clear to auscultation, no stridor Cardiovascular: S1 and S2 RRR Breast exam through OBGYN GI: Normal to inspection. Soft to palpation and nontender Skin: Turgor normal, no acute findings, no skin problems reported Neuro: Patient oriented x3, motor sensory intact, balance intact, tandem pass Extremities: Normal to inspection, joints mobile [facility] Medical History GREGOR I (cervical intraepithelial neoplasia I) Depression Hyperlipemia History of breast cancer Hypothyroidism Surgical History H/O right breast biopsy H/O total hysterectomy with bilateral salpingo-oophorectomy (BSO) History of appendectomy Family History Sister Diabetes mellitus Mother CHF (congestive heart failure) Family/Other Colon cancer Other Mental health disorder Substance use disorder Social History Housing: Condominium Alcohol intake: current Alcohol intake frequency: holidays/special occasions only Patient Tobacco Use Status: Never used Tobacco e-Cigarette/Vaping Use: Never Used service: No Current occupational status: employed 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, 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 Sexual orientation: Straight/Heterosexual Gender identity: Female Cognitive needs: No Hearing needs: No Vision needs: No Questionnaire Thrive Questionnaire Date Thrive assessed: 03/31/24 I am a: Patient What is your living situation today?: I have a steady place to live Within the past 12 months, did the food you bought not last and you didn't have the money to get more?: Never true Within the past 12 months, did you worry whether your food would run out before you got money to buy more?: Never true Do you have trouble paying for medicines?: No Do you have trouble getting transportation to medical appointments?: No Do you have trouble paying your heating and electricity bill?: No Do you have trouble taking care of your child, family member or friend?: No Do you have trouble with day-to-day activities such as bathing, preparing meals, shopping, managing finances, etc.?: No Are you currently unemployed and looking for a job?: No Are you interested in more education?: No Please select the resources that you would like help with: None Currently or been in a relationship where the following occur: No concerns reported THRIVE Score: 0 LADY-7 AMB Questionnaire LADY-7 Date LADY - 7 assessed: 03/31/24 Source: Developed by Drs. Charli Webster, Karla Poole, Ed Quintero and colleagues, with an educational jeni from [employer]. Physical exam (Primary Care) Vital Signs: Last Vital Signs Temp 98.6 F 11/28/24 12:28 Pulse 71 11/28/24 12:28 Resp 16 11/28/24 12:28 BP 100/70 11/28/24 12:28 Pulse Ox 98 11/28/24 12:28 Oxygen Delivery Method Room Air 11/28/24 12:28 BMI result Body Mass Index 28.5 Tobacco/Smoking Status: Tobacco use Status Tobacco use date assessed 11/28/24 11/28/24 12:32 Patient Tobacco Use Status Never used Tobacco 11/28/24 12:27 e-Cigarette/Vaping Use Never Used 11/28/24 12:27 Thrive Assessment: Date of Thrive Assessment Date Thrive assessed 03/31/24 11/28/24 12:27 Currently or been in a relationship where the following occur: No concerns reported Coding Level of Care Code Est Pt Level 3 (93692) Est Pt Prev Care >65y(22935) Diagnoses Encounter for general adult medical examination with abnormal findings Z00.01 Other specified hypothyroidism E03.8 Assessment & Plan Assessment & Plan (1) Encounter for general adult medical examination with abnormal findings: Code(s): Z00.01 - Encounter for general adult medical examination with abnormal findings Category: Medical (2) Other specified hypothyroidism: Code(s): E03.8 - Other specified hypothyroidism Category: Medical Plan History of Present Illness The patient is a 69-year-old female presenting for a physical examination and medication refill for hypothyroidism. Hypothyroidism: - Needs refill of thyroid medication, levothyroxine 50 mcg, as the patient accidentally disposed of her medication. - Last taken some doses provided by her son, who takes the same medication and dose. Human Papillomavirus (HPV) Infection: - History of HPV leading to a hysterectomy due to progression into a precancerous state. - Continues to receive follow-up care from an OBGYN. Preventive Care Needs: - up-to-date on routine mammogram, August of this year - Due for Tetanus and Pneumonia vaccines, with previous Tetanus vaccine received in 2012. Due for shingles vaccine patient will have it from pharmacy - Awaiting a scheduled colonoscopy. Medical History: - Hypothyroidism - Human Papillomavirus (HPV) infection, precancerous - History of precancerous cervical lesions Surgical History: - Hysterectomy due to precancerous changes associated with HPV Health Maintenance - Routine mammogram due every six months - Overdue for tetanus vaccination since last received in 2012 - Due for pneumonia vaccine - Awaiting colonoscopy scheduled for January 15 [facility] - Continues follow-up with OBGYN from [place] nurse practitioner [place] Medications - Levothyroxine 50 mcg, for hypothyroidism Patient Instructions - Get blood test and thyroid medication refilled at the pharmacy - get tetanus vaccine at pharmacy when picking up thyroid medication - Schedule pneumonia vaccine and shingles vaccine - Continue thyroid medication as prescribed - Return for a follow-up in one year - Await scheduled colonoscopy on January 15 Orders: Orders TSH reflex Free T4 Today E03.8 - Other specified hypothyroidism, Z00.01 - Encounter for general adult medical examination with abnormal findings Complete Blood Count Auto Diff Today E03.8 - Other specified hypothyroidism, Z00.01 - Encounter for general adult medical examination with abnormal findings LDL Cholesterol Direct Today E03.8 - Other specified hypothyroidism, Z00.01 - Encounter for general adult medical examination with abnormal findings Comprehensive Met. Panel Today E03.8 - Other specified hypothyroidism, Z00.01 - Encounter for general adult medical examination with abnormal findings Medications: Refilled levothyroxine 50 mcg PO DAILY 90 tabs 1RF 90 days E03.8 - Other specified hypothyroidism
[2024-11-28 12:28] VITALS: BP 100/70; PULSE 71; RESP 16; TEMP 37; O2SAT 98; BMI 28.5
== END 2024-11-28 12:51 | disposition home or self-care (01) ==
LOC: HO.HMCC 12:21
PROVIDERS: PCP Internal Medicine; Visit Provider Internal Medicine
DX: Z00.00 Encounter for general adult medical examination without abnormal findings (principal); E03.8 Other specified hypothyroidism

== ENCOUNTER 2025-01-15 15:12 | Outpatient (AMB) | payer MEDICARE, SELFPAY ==
--- NOTE | 2025-01-15 15:21 | MHC.OFFVIS ---
Vital Signs 01/15/25 15:26 Height 5 ft 4 in Weight 165 lb BMI 28.3 BP 122/66 Blood Pressure Location Rt brachial Position Sitting Pulse 74 Pulse Source Pulse Oximeter Pulse Oximetry (%) 97 Oxygen Delivery Method Room Air Intake Visit Reasons: [place] screening Intake Note: Est pt for rescreening prior to colo. [place] 2022. Pt has still never had a colonoscopy. FMHx (Stage IV CRC) CC; Pt denies any GI sx or concerns at this time. 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 Denies any issues with anesthesia in the past.? Denies any history of sleep apnea.? No history infectious diseases in the past or present.? Not on any anticoagulation therapy.? ? Patient denies melena, hematochezia, unintentional weight loss or ribbon like stools.? Discussed at length the pre-procedure,? prep, diet & medications as well as what to expect prior, during and after the procedure.?? Stressed the importance of good bowel prep. ?Recommended the use of Vaseline or Calmoseptine OTC & baby wipes with bowel movements to promote comfort.? ?Patient verbalizes understanding and agrees to plan of care.? She was given the opportunity to ask questions and all questions answered.? We will see her after the procedure.? Plan New bisacodyl (Dulcolax (bisacodyl)) take 2 tabs at noon the day before your colonoscopy 10 mg (2 x 5 mg) PO ONCE 1 day 2 tabs 0RF Z12.11 polyethylene glycol 3350 (Miralax) As directed by gastroenterology department at [facility] 238 grams PO ONCE 238 grams 0RF Z12.11 TODAY'S VISIT Patient is here today to discuss going for colonoscopy. Patient last seen back in 2022 for pre colonoscopy screening, however patient never book a procedure. No change since last visit. Patient learned since that she has a family history of stage IV CRC. Patient denies melena, hematochezia, unintentional weight loss or ribbon like stools. Patient denies any dyspepsia, dysphagia or odynophagia. No issues with anesthesia in the past. No history of sleep apnea. Not on any anticoagulation medication. [facility] Medical History (Updated 01/27/25 @ 14:18 by Anne Petersen [facility]) GREGOR I (cervical intraepithelial neoplasia I) Depression Hyperlipemia History of breast cancer Hypothyroidism Surgical History H/O right breast biopsy H/O total hysterectomy with bilateral salpingo-oophorectomy (BSO) History of appendectomy Family History Sister Diabetes mellitus Mother CHF (congestive heart failure) Family/Other Colon cancer Other Mental health disorder Substance use disorder Social History Housing: Condominium Alcohol intake: current Alcohol intake frequency: holidays/special occasions only Patient Tobacco Use Status: Never used Tobacco e-Cigarette/Vaping Use: Never Used service: No Current occupational status: employed 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, 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 Sexual orientation: Straight/Heterosexual Gender identity: Female Cognitive needs: No Hearing needs: No Vision needs: No Review of Systems Const Denies weight gain and Denies weight loss ENT Reports no additional complaints, Denies dysphagia and Denies odynophagia Card Reports no additional complaints Resp Reports no additional complaints GI Denies abdominal pain, Denies belching, Denies melena, Denies bloating, Denies change in bowel habits, Denies dysphagia, Denies excessive flatus, Denies dyspepsia, Denies heartburn, Denies diarrhea, Denies loose stools, Denies nausea, Denies odynophagia and Denies vomiting Musc Reports no additional complaints Neuro Reports no additional complaints Psych Reports no additional complaints Endo Reports no additional complaints Physical Exam Vital Signs: Last Vital Signs Pulse 74 01/15/25 15:26 BP 122/66 01/15/25 15:26 Pulse Ox 97 01/15/25 15:26 Oxygen Delivery Method Room Air 01/15/25 15:26 BMI result Body Mass Index 28.3 Const General: healthy appearing, no acute distress and well developed Nutritional Appearance: well nourished Orientation/consciousness: patient oriented x3 Resp Effort & Inspection: normal respiratory effort, able to speak in complete sentences, no tracheal deviation and symmetric chest movement Auscultation: clear to auscultation bilaterally Cardio Rate: regular rate GI Inspection: Yes normal to inspection and No distended Palpation (GI): Soft to palpation, not firm, nontender and No hepatosplenomegaly present Auscultation: normal bowel sounds General: Yes no CVA tenderness Back/Spine/Pelvis Back: no CVA tenderness Skin General skin exam: elasticity normal, turgor normal and dry skin Neuro General: patient oriented x3 Psych Appearance: grossly normal Mental Status: mental status grossly normal Assessment & Plan Assessment & Plan (1) Colon cancer screening: Code(s): Z12.11 - Encounter for screening for malignant neoplasm of colon Category: Medical Plan Patient denies any GI, cardiac or respiratory symptoms.? Patient was evaluated back in June of this year for chest pain. Patient had normal stress echo test. Denies any issues with anesthesia in the past.? Denies any history of sleep apnea.? No history infectious diseases in the past or present.? Not on any anticoagulation therapy.? Family history of CRC.? Patient denies melena, hematochezia, unintentional weight loss or ribbon like stools.? Discussed at length the pre-procedure,? prep, diet & medications as well as what to expect prior, during and after the procedure.?? Stressed the importance of good bowel prep.? Recommended the use of Vaseline or Calmoseptine OTC & baby wipes with bowel movements to promote comfort.? ?Patient verbalizes understanding and agrees to plan of care.? She was given the opportunity to ask questions and all questions answered.? We will see her after the procedure.? Orders: Referrals GI Procedure Notification Z12.11 - Encounter for screening for malignant neoplasm of colon Medications: New bisacodyl (Dulcolax (bisacodyl)) take 4 tabs at noon the day before your colonoscopy 20 mg (4 x 5 mg) PO ONCE 4 tabs 0RF constipation 1 day Z12.11 - Encounter for screening for malignant neoplasm of colon polyethylene glycol 3350 (Miralax) As directed by gastroenterology department at [facility] 238 grams PO ONCE 238 grams 0RF Z12.11 - Encounter for screening for malignant neoplasm of colon Patient Instructions: Coding Level of Care Code Est Pt Level 3 (38474) Diagnoses Colon cancer screening Z12.11 Time Spent (min) 30 Comment 20 minutes spent with patient and additional 10 minutes spent reviewing her records
[2025-01-15 15:26] VITALS: BP 122/66; PULSE 74; O2SAT 97; BMI 28.3
--- OUTSIDE RECORDS SUMMARY | 2025-01-15 19:25 | XMS_ITS | Patient Health Record ---
[facility] Address [address] [place] [address] Care Team Providers Care Battery Container Inspector Name Role Phone Jose PEMBERTON, Asma Primary Care Provider Petar Palacios Unavailable [phone] Allergies Allergen (clinical drug ingredient) Drug/Non Drug [...] [employer] [address] [facility] [place] [address] [id number] Angelica Gifford Self - patient is the insured Medical (General) History Medical History History ICD Code breast cancer Surgical History Surgery Date(Month/Year) breast surgery 2005
== END 2025-01-15 15:48 | disposition home or self-care (01) ==
PROVIDERS: PCP Internal Medicine; Visit Provider Nurse Practitioner Family
DX: Z01.818 Encounter for other preprocedural examination (principal); Z12.11 Encounter for screening for malignant neoplasm of colon
CPT/HCPCS: 99024

== ENCOUNTER → 2025-01-15 15:12 | Outpatient (BNVA) | payer MEDICARE, SELFPAY | PROVIDERS: PCP Internal Medicine; Visit Provider Nurse Practitioner Family | DX: Z01.818 Encounter for other preprocedural examination (principal); Z12.11 Encounter for screening for malignant neoplasm of colon | CPT/HCPCS: 99212 ==

== ENCOUNTER 2025-03-13 12:18 | Outpatient (REF) | payer MEDICARE, SELFPAY ==
--- NOTE | ~2025-03-13 | XR_ITS ---
EXAMINATION: XR TOES, RIGHT CLINICAL INFORMATION: M79.674 - Pain in right toe(s) COMPARISON: None available. TECHNIQUE: AP view right foot. Oblique and lateral views first toe. FINDINGS: No acute fracture or dislocation. No osteolysis. Lateral deviation of the first tarsometatarsal joint. No subcutaneous emphysema. No metallic or radiopaque foreign body. Joint space narrowing involving the proximal and distal interphalangeal joints of the toes. XR/XR toe RT min 2V IMPRESSION: Osteoarthrosis/osteoarthritis without acute fracture or dislocation. Hallux valgus deformity, first tarsometatarsal joint. Electronically signed by: Tony Jo MD 03/13/2025 01:39 PM EMORY HERNANDEZ
== END 2025-03-13 12:19 | disposition home or self-care (01) ==
LOC: HO.HMGCX 12:18
PROVIDERS: PCP Internal Medicine; Visit Provider Physician Assistant Medical
DX: M79.674 Pain in right toe(s) (principal)
CPT/HCPCS: 73660; 99212

== ENCOUNTER 2025-03-13 12:18 | Outpatient (AMB) | payer MEDICARE, SELFPAY ==
[2025-03-13 12:27] VITALS: BP 140/80; PULSE 76; O2SAT 98; BMI 28.1
--- NOTE | 2025-03-13 12:27 | MHC.OFFWIV ---
Intake Vital Signs 03/13/25 12:27 Height 5 ft 4 in Weight 164 lb BMI 28.1 BP 140/80 H Blood Pressure Location Lt brachial Position Sitting Pulse 76 Pulse Source Pulse Oximeter Pulse Oximetry (%) 98 Oxygen Delivery Method Room Air Intake Visit Reasons: EP Toe injury on right foot Intake Note: Patient presents c/o right big toe pain, discoloration since yesterday. Patient unsure of injury, ? broken. Patient Tobacco Use Status: Never used Tobacco Allergies lactose (Lactose) Allergy (Mild, Verified 03/13/25 12:31) DIARRHEA morphine (Morphine) Allergy (Mild, Verified 03/13/25 12:31) HIVES, itching ciprofloxacin (Cipro) Allergy (Unknown, Verified 03/13/25 12:31) eye swelling, itching Latex Exam Gloves Allergy (Unknown, Uncoded 03/13/25 12:31) itching NUTS Allergy (Unknown, Uncoded 03/13/25 12:31) itching HPI HPI Comments History of Present Illness Details History of Present Illness - The patient is a 69 year old female who presents with pain and bruising of her right great toe. - She first noticed the symptoms yesterday after removing her boot. 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 - She reports pain but is able to move the toe. - She denies trauma or fall. - She denies numbness, tingling, swelling, foot pain, ankle pain, or calf pain. Physical Exam General: Cooperative, healthy appearing, comfortable, no acute distress and well developed Orientation: Patient oriented x3 Limitations: No limitations Respiratory: Normal respiratory effort and able to speak in complete sentences. Clear to auscultation bilaterally Cardiovascular: Regular rate and rhythm. Normal S1 and S2 Skin: Small bruise noted on the right great toe. No erythema or swelling noted. Neuro: Sensation is intact. Extremities: No deformity noted. FROM of the right great toe. No TTP of the right DIP, MCP of the great toe. Bunion noted on the right MCP. No TTP of the metatarsals of the right foot. Ambulates with steady gait. Strength is 5/5 on the LE. Patient was informed and verbally consented to the use of an ambient scribe for clinic note documentation during this visit. [facility] Medical History (Updated 01/27/25 @ 14:18 by Anne Petersen, [facility]) GREGOR I (cervical intraepithelial neoplasia I) Depression Hyperlipemia History of breast cancer Hypothyroidism Surgical History H/O right breast biopsy H/O total hysterectomy with bilateral salpingo-oophorectomy (BSO) History of appendectomy Family History Sister Diabetes mellitus Mother CHF (congestive heart failure) Family/Other Colon cancer Other Mental health disorder Substance use disorder Social History Housing: Condominium Alcohol intake: current Alcohol intake frequency: holidays/special occasions only Patient Tobacco Use Status: Never used Tobacco e-Cigarette/Vaping Use: Never Used service: No Current occupational status: employed 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, 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 Sexual orientation: Straight/Heterosexual Gender identity: Female Cognitive needs: No Hearing needs: No Vision needs: No Review of Systems Const All systems reviewed & are unremarkable except as noted in HPI and below Physical Exam Vital Signs: Last Vital Signs Pulse 76 03/13/25 12:27 BP 140/80 H 03/13/25 12:27 Pulse Ox 98 03/13/25 12:27 Oxygen Delivery Method Room Air 03/13/25 12:27 BMI result Body Mass Index 28.1 Assessment & Plan Assessment & Plan (1) Pain of right great toe: Code(s): M79.674 - Pain in right toe(s) Plan Most likely Right Great Toe pain after ?Injury plan - rest, ice and elevation - tylenol or motrin as needed - An X-ray of the right toe was ordered to evaluate for a possible fracture. - The patient was offered a medical boot for support. - A work excuse note for today will be provided per the patient's request. - will call her with the results of the xray - follow up with PCP Orders: Orders XR toe RT min 2V Today M79.674 - Pain in right toe(s) Coding Level of Care Code Est Pt Level 4 (94336) Diagnoses Pain of right great toe M79.674
--- OUTSIDE RECORDS SUMMARY | 2025-03-13 16:10 | XMS_ITS | Patient Health Record ---
Author Organization [facility] Address [address] [place] [address] Care Team Providers Care Survey Cad Technician Name Role Phone Jose PEMBERTON, Asma Primary Care Provider Petar Palacios Unavailable [phone] Allergies Allergen (clinical drug ingredient) Drug/Non Drug [...] [employer] [address] [place] [address] [id number] Angelica Gifford Self - patient is the insured Medical (General) History Medical History History ICD Code breast cancer Surgical History Surgery Date(Month/Year) breast surgery 2005
== END 2025-03-13 13:51 | disposition home or self-care (01) ==
PROVIDERS: PCP Internal Medicine; Visit Provider Physician Assistant Medical
DX: M79.674 Pain in right toe(s) (principal)

== ENCOUNTER → 2025-03-13 13:24 | Outpatient (BNV) | payer MEDICARE, SELFPAY | PROVIDERS: PCP Internal Medicine; Visit Provider Radiology Diagnostic Radiology | DX: M19.071 Primary osteoarthritis, right ankle and foot (principal); M20.11 Hallux valgus (acquired), right foot | CPT/HCPCS: 73660 ==

== ENCOUNTER 2025-03-20 12:38 | Outpatient (AMB) | payer MEDICARE, SELFPAY ==
[2025-03-20 12:52] VITALS: BP 120/78; PULSE 76; BMI 28.8
--- NOTE | 2025-03-20 12:52 | A.OFFVIS_ITS ---
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 Study r/s 11/29 Intake Note: New patient abnormal stress test c/o chest pain with activity at times Fuel Verification Technician Required: No Allergies lactose (Lactose) Allergy (Mild, Verified 03/13/25 12:31) DIARRHEA morphine (Morphine) Allergy (Mild, Verified 03/13/25 12:31) HIVES, itching ciprofloxacin (Cipro) Allergy (Unknown, Verified 03/13/25 12:31) eye swelling, itching Latex Exam Gloves Allergy (Unknown, Uncoded 03/13/25 12:31) itching NUTS Allergy (Unknown, Uncoded 03/13/25 12:31) itching Medication List - Last Reconciled 03/20/25 by Lam Conley MD levothyroxine 50 mcg PO DAILY 90 days HPI Comments Details: Angelica was referred here for management of stress test which was abnormal and subsequently she had a stress echocardiogram which showed no evidence of ischemia by imaging. She was referred here because she gets intermittent episodes of stress-induced chest tightness. She says she had a particularly severe episode which had presented to the emergency room. Workup in the emergency room at that time was negative and then she subsequently underwent a stress test. She had abnormal regular treadmill stress test and on both stress test noted that she had somewhat of a high blood pressure response. EKGs changes therefore could be related to either gender based false-positive stress test which is noted more in women as and/or hypertension related EKGs changes. That has no clear evidence of obstructive coronary artery disease by normal st ress echocardiogram although she only has moderate exercise capacity. She does have mild hyperlipidemia with LDL of 148 mg/dL for her risk. She has no other significant risk factors. She denies any exertional chest pain. She denies any shortness of breath, orthopnea, PND. No prolonged palpitation irregular heartbeat. No lightheadedness, syncope recently. [facility] Medical History GREGOR I (cervical intraepithelial neoplasia I) Depression Hyperlipemia History of breast cancer Hypothyroidism Surgical History H/O right breast biopsy H/O total hysterectomy with bilateral salpingo-oophorectomy (BSO) History of appendectomy Family History Sister Diabetes mellitus Mother CHF (congestive heart failure) Family/Other Colon cancer Other Mental health disorder Substance use disorder Social History Housing: Condominium Alcohol intake: current Alcohol intake frequency: holidays/special occasions only Patient Tobacco Use Status: Never used Tobacco e-Cigarette/Vaping Use: Never Used service: No Current occupational status: employed 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, 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 Sexual orientation: Straight/Heterosexual Gender identity: Female Cognitive needs: No Hearing needs: No Vision needs: No Review of Systems Const Denies chills, Denies daytime sleepiness, Denies fatigue, Denies fever(s), Denies frequent falls, Denies poor appetite, Denies snoring, Denies stops breathing during sleep, Denies weakness, Denies weight gain and Denies weight loss Eyes Denies loss of vision ENT Denies dizziness and Denies hearing loss Card Denies chest pain, Denies claudication, Denies leg edema, Denies lightheadedness, Denies palpitations, Denies dyspnea, Denies dyspnea on exertion and Denies orthopnea Resp Denies cough, Denies excessive phlegm production, Denies dyspnea, Denies dyspnea on exertion, Denies snoring and Denies wheezing GI Denies abdominal pain, Denies hematochezia, Denies change in bowel habits, Denies nausea and Denies vomiting Denies urinary frequency and Denies dysuria Musc Denies arthralgias, Denies muscle weakness and Denies numbness Skin/Breast Denies nail changes and Denies rash Neuro Denies Abnormal speech present, Denies dizziness, Denies frequent falls, Denies loss of vision, Denies memory loss, Denies numbness and Denies weakness Psych Denies depression and Denies memory loss Endo Denies fatigue and Denies palpitations Johan/Lymph Reports easy bruising and Reports other (anemia) Aller/Immun Denies wheezing Physical Exam Vital Signs: Last Vital Signs Pulse 76 03/20/25 12:52 BP 120/78 03/20/25 12:52 BMI result Body Mass Index 28.8 Const General: cooperative, comfortable, no acute distress, alert, awake and Physically active Nutritional Appearance: overweight Orientation/consciousness: patient oriented x3 Limitations: no limitations HEENT Head: Yes normocephalic and Yes atraumatic Neck Neck: Yes trachea midline, Yes supple and Yes no JVD Resp Effort & Inspection: normal respiratory effort Auscultation: clear to auscultation bilaterally Cardio Jugular venous distension: no JVD Rate: regular rate Rhythm: regular rhythm Heart sounds: S1 normal heart sound present, S2 normal heart sound present, no click, no gallops, no murmurs and no rubs GI Auscultation: normal bowel sounds Skin General skin exam: no rashes or lesions noted Neuro General: patient oriented x3 and no focal motor deficits Speech: No Abnormal speech present Extrem General: Yes no clubbing, cyanosis or edema Psych Appearance: grossly normal Office Procedures EKG Details: EKGs shows normal sinus rhythm with nonspecific ST-T abnormality. [id number], Complete Assessment & Plan Assessment & Plan (1) Chest pain: Code(s): R07.9 - Chest pain, unspecified Category: Medical Qualifiers: Chest pain type: precordial pain Qualified Code(s): R07.2 - Precordial pain Plan: Precordial/retrosternal chest discomfort under stressful situation. Potential differential diagnose include anxiety/panic attack related muscular chest tigh tness versus coronary vaso spasm. She had a normal stress echocardiogram had moderate workload which is reassuring and usually suggest absence of obstructive coronary artery disease. This was discussed with her. Her EKGs changes appear to be false-positive again as mentioned related to either elevated blood pressure and/or gender based false-positive testing. This was discussed with her as well. She is advised stress mitigation strategies. She is noted to have elevated blood pressure with exercise which could portend future development of high blood pressure advised to monitor blood pressure intermittently at home. She does have mild hyperlipidemia in her age I would suggest her to undergo coronary calcium score to assess for presence of coronary atherosclerosis and prognosticate from that perspective. She is agreeable. Will order the same. Will follow up after the test has been performed. Will follow up in the clinic if need be. Thank you for allowing me to partake in her care Orders: Orders CT Coronary Calcium Score 1 Week R07.2 - Precordial pain Coding Level of Care Code New Pt Level 4 (02606) Diagnoses Precordial pain R07.2 Chest pain type: precordial pain CPT Codes EKG - CPT: 42923-[id number], Complete ([id number])
--- OUTSIDE RECORDS SUMMARY | 2025-03-20 13:43 | XMS_ITS | Patient Health Record ---
[facility] Address [address] [place] [address] Care Team Providers Care Silk Top Hat Body Maker Name Role Phone Jose PEMBERTON, Asma Primary Care Provider Petar Palacios Unavailable [phone] Allergies Allergen (clinical drug ingredient) Drug/Non Drug [...] [employer] [address] [place] [address] [id number] Angelica Gifford Self - patient is the insured Medical (General) History Medical History History ICD Code breast cancer Surgical History Surgery Date(Month/Year) breast surgery 2005
== END 2025-03-20 13:22 | disposition home or self-care (01) ==
LOC: HO.HCS 12:39
PROVIDERS: PCP Internal Medicine; Visit Provider Internal Medicine Cardiovascular Disease
DX: R07.2 Precordial pain (principal)
CPT/HCPCS: 93010; 99204

== ENCOUNTER → 2025-03-20 12:38 | Outpatient (BNVA) | payer MEDICARE, SELFPAY | PROVIDERS: PCP Internal Medicine; Visit Provider Internal Medicine Cardiovascular Disease | DX: R07.2 Precordial pain (principal); R03.0 Elevated blood-pressure reading, without diagnosis of hypertension; E78.5 Hyperlipidemia, unspecified | CPT/HCPCS: 93005; 99202 ==